=== PATIENT | female | born 1995 | race Caucasian/White ===

== ENCOUNTER 2016-11-22 04:53 | Inpatient (IN) | payer OTHER ==
[2016-11-22] MEDS ORDERED: ONDANSETRON HCL INJ/PF 4 MG/2 ML SDV IV ONE (05:15)
[2016-11-22] MEDS ORDERED: LIDOCAINE 1% INJ-PF (10 MG/ML) 30 ML SDV ONE ×2 (05:16→05:43)
[2016-11-22] MEDS ORDERED: MISOPROSTOL 0.2 MG TABLET ONE ×2 (05:16→05:42)
[2016-11-22] MEDS ORDERED: ONDANSETRON HCL INJ/PF 4 MG/2 ML SDV ONE (05:16)
[2016-11-22] MEDS ORDERED: RINGERS SOLUTION,LACTATED 1,000 ML IV ONE (05:16)
[2016-11-22] MEDS ORDERED: RINGERS SOLUTION,LACTATED 1,000 ML IV PRN (05:16)
[2016-11-22] MEDS ORDERED: OXYTOCIN/NORMAL SALINE 0 UNIT/0 ML RTUINJ ONE (05:16)
[2016-11-22 05:17] LABS: APPEARANCE,URINE SLIGHTLY-CLOUDY; BILIRUBIN,URINE NEGATIVE (NEGATIVE); GLUCOSE, URINE NEGATIVE (NEGATIVE); KETONES,URINE NEGATIVE (NEGATIVE); LEUKOCYTE ESTERASE,URINE TRACE (NEGATIVE); NITRITE,URINE NEGATIVE (NEGATIVE); PROTEIN,URINE NEGATIVE (NEGATIVE); URINE SPECIFIC GRAVITY 1.021; UROBILINOGEN,URINE NEGATIVE mg/dL (<2.0)
[2016-11-22] MEDS ORDERED: BENZOIN/ALOE VERA/STORAX/TOLU TINCTURE 60 ML TP PRN (05:18)
[2016-11-22] MEDS ORDERED: FENTANYL/BUPIVACAINE/NS/PF 100 ML EPI PRN (05:18)
[2016-11-22] MEDS ORDERED: BUPIVACAINE HCL 0.25 % INJ/PF (2.5 MG/1 ML) 30 ML VIAL INFIL ONE (05:18)
[2016-11-22] MEDS ORDERED: EPHEDRINE SULFATE INJ 50 MG/1 ML AMPULE IV PRN (05:18)
[2016-11-22 05:35] LABS: URINE BARBITURATES SCREEN NEGATIVE; URINE METHADONE SCREEN NEGATIVE; URINE PHENCYCLIDINE SCREEN NEGATIVE
[2016-11-22] MEDS ORDERED: FENTANYL CITRATE INJ/PF 100 MCG/2 ML AMPUL ONE (05:43)
[2016-11-22] MEDS ORDERED: PHENYLEPHRINE HCL INJ/PF 10 MG/1 ML SDV ONE (05:43)
[2016-11-22] MEDS ORDERED: FENTANYL/BUPIVACAINE/NS/PF 200 MCG/100 ML RTUINJ EPI ONE (05:43)
[2016-11-22] MEDS ORDERED: EPHEDRINE SULFATE INJ 50 MG/1 ML AMPULE ONE (05:43)
[2016-11-22] MEDS ORDERED: OXYTOCIN/NORMAL SALINE 20 UNIT/1,000 ML RTUINJ ONE (05:44)
[2016-11-22] MEDS ORDERED: BUPIVACAINE HCL 0.25 % INJ/PF (2.5 MG/1 ML) 30 ML VIAL ONE (05:44)
[2016-11-22 05:50] LABS: ABSOLUTE EOSINOPHILS # (AUTO) 0.1 10^3/uL (0.0-0.6); ABSOLUTE LYMPHOCYTES (AUTO) 2.2 10^3/uL (0.5-4.7); ABSOLUTE MONOCYTES (AUTO) 0.9 10^3/uL (0.1-1.4); BASOPHILS % (AUTO) 0.2 % (0-2); EOSINOPHILS % (AUTO) 0.9 % (0-6); HEMATOCRIT 36.6 % (36.0-47.0); HEMOGLOBIN 12.7 g/dL (12.0-15.5); HGB HCT DIFFERENCE 1.5; MEAN CORPUSCULAR HEMOGLOBIN 29.9 pg (27.0-33.4); MEAN CORPUSCULAR HGB CONC 34.7 g/dL (32.0-36.0); MEAN CORPUSCULAR VOLUME 86 fl (80-97); MONOCYTES % (AUTO) 8.5 % (3-13); RED BLOOD COUNT 4.25 10^6/uL (3.72-5.28); RED CELL DISTRIBUTION WIDTH 13.1 % (11.5-14.0); SEGMENTED NEUTROPHILS % (AUTO) 68.4 % (42-78); WHITE BLOOD COUNT 10.2 10^3/uL (4.0-10.5)
--- NOTE | 2016-11-22 06:15 | L&D General Admission ---
General Admit Datetime Report Generated by CPN: 11/22/2016 06:00 INFORMATION Patient Age: 21 (10/12/2016 14:07:QS system process) EDC: 11/27/2016 00:00 (10/22/2016 23:53:Sruthi Thurman RN) : 1 (10/22/2016 23:53:Sruthi Thurman RN) Para: 0 (11/21/2016 00:47:Carol Hernandez RN) Term: 0 (10/22/2016 23:53:Ariane Khan RN) : 0 (10/22/2016 23:53:Ariane Khan RN) Spontaneous Abortions: 0 (10/22/2016 23:53:Ariane Khan RN) Induced Abortions: 0 (10/22/2016 23:53:Ariane Khan RN) Livin (10/22/2016 23:53:Ariane Khan RN) Cesareans: 0 (10/22/2016 23:53:Ariane Khan RN) VBACs: 0 (10/22/2016 23:53:Ariane Khan RN) Ectopic: 0 (10/22/2016 23:53:Ariane Khan RN) Multiple Births: 0 (10/22/2016 23:53:Ariane Khan RN) Baby, Number in Womb: 1 (11/21/2016 00:47:Carol Hernandez RN) CARE Primary Issuing Operator: [facility] (10/22/2016 23:53:Sruthi Thurman RN) Adequate Care: Yes (10/22/2016 23:53:Elsie Santos RN) Height (in): 61 (11/21/2016 00:22:QS system process) ALLERGIES Medication Allergy: No (10/22/2016 23:53:Adriana Pinzon RN) Medication Allergies: No Known Allergies (11/21/2016) (11/21/2016 00:22:QS system process) Latex Allergy: No Latex Allergies (10/22/2016 23:53:Adriana Pinzon RN) Food Allergies: None (10/22/2016 23:53:Adriana Pinzon RN) Environmental Allergies: None (10/22/2016 23:53:Adriana Pinzon RN) COMMUNICATION Primary Language: Azeri (10/22/2016 23:53:Adriana Pinzon RN) Medical Tx Preferred Language: Azeri (10/22/2016 23:53:Adriana Pinzon RN) Communication Barrier(s): None (10/22/2016 23:53:Adriana Pinzon RN) DEMOGRAPHICS Address: [address] [place] [id number] (10/12/2016 14:07:QS system process) Zipcode: [address] (10/12/2016 14:07:QS system process) Home (10/12/2016 14:07:QS system process) SSN: [id number] (10/12/2016 14:07:QS system process) Next of Kin Name: RICO GRAF (10/12/2016 14:07:QS system process) Next of Kin (10/12/2016 14:07:QS system process) Next of Kin Relationship: SPO (10/12/2016 14:07:QS system process) Date of : 1995 (10/12/2016 14:07:QS system process) Marital Status: (10/12/2016 14:07:QS system process) Sex: Female (10/12/2016 14:07:QS system process) Race: (10/12/2016 14:07:QS system process) Ethnicity: Non- or (10/12/2016 14:07:QS system process) Pentecostalism: Denominational (10/12/2016 14:07:QS system process) DRUG AND ALCOHOL USE Alcohol: No (10/22/2016 23:53:Sruthi Thurman RN) Cigarettes: Never Smoker. [id number] (10/22/2016 23:53:Sruthi Thurman RN) Marijuana: No (10/22/2016 23:53:Sruthi Thurman RN) Cocaine: No (10/22/2016 23:53:Sruthi Thurman RN) Other Illicit Drugs: No (10/22/2016 23:53:Sruthi Thurman RN) Extracorporeal Circulation Specialist: Other (Annotations: Data stored by Randy on behalf of user) (10/22/2016 23:53:Elsie Santos RN) Feeding Preference: Breast (10/22/2016 23:53:Sruthi Thurman RN) Circumcision: N/A (10/22/2016 23:53:Sruthi Thurman RN) Classes Attended: No (10/22/2016 23:53:Sruthi Thurman RN) Tubal Ligation: No (10/22/2016 23:53:Sruthi Thurman RN) Tubal Authorization Signed: N/A (10/22/2016 23:53:Sruthi Thurman RN) Consent: N/A (10/22/2016 23:53:Sruthi Thurman RN) Consent Signed: N/A (10/22/2016 23:53:Sruthi Thurman RN) Pain Management Plans: Epidural (10/22/2016 23:53:Sruthi Thurman RN) Plans for Labor and Delivery: None (10/22/2016 23:53:Sruthi Thurman RN) Support Person: Rico (10/22/2016 23:53:Sruthi Thurman RN) Support Person Relationship: (10/22/2016 23:53:Sruthi Thurman RN) Cultural/Spritual Practice: No (10/22/2016 23:53:Sruthi Thurman RN) Spir/Cult Dietary Needs: No (10/22/2016 23:53:Sruthi Thurman RN) LIVING SITUATION/DISCHARGE PLAN Living Arrangements: Apartment (10/22/2016 23:53:Sruthi Thurman RN) Adequate Access to:: Electric; Heat; Refrigeration; Plumbing/Running water; Phone; Transportation (10/22/2016 23:53:Sruthi Thurman RN) WIC Program: No (10/22/2016 23:53:Sruthi Thurman RN) Discharge Flower [place] Person: Rico (10/22/2016 23:53:Sruthi Thurman RN) Person to Help after Discharge: Rico (10/22/2016 23:53:Rosita Galvez RN) Currently Using Commun Resources: No (10/22/2016 23:53:Sruthi Thurman RN) Outside Agency/Seismograph Supervisor: N/A (10/22/2016 23:53:Sruthi Thurman RN) Car Seat for Discharge: Yes (10/22/2016 23:53:Sruthi Thurman RN) Adoption Requested: No (10/22/2016 23:53:Sruthi Thurman RN) LABS Blood Type: A Negative (10/22/2016 23:53:Sruthi Thurman RN) Antibody Screen: Negative (10/22/2016 23:53:Sruthi Thurman RN) Rho(G) this : Yes (10/22/2016 23:53:Gely Vega RN) Date Rho(G) Given: 09/08/2016 (10/22/2016 23:53:Ariane Khan RN) Hemoglobin: 12.7 (11/22/2016 05:26:QS system process) Hematocrit: 36.6 (11/22/2016 05:26:QS system process) MCV: 86 (11/22/2016 05:26:QS system process) Group Beta Strep: negative (10/22/2016 23:53:Gely Vega RN) Gonorrhea: Negative (10/22/2016 23:53:Gely Vega RN) Chlamydia: Negative (10/22/2016 23:53:Gely Vega RN) RPR/VDRL: Nonreactive (10/22/2016 23:53:Gely Vega RN) HIV Results: Negative (10/22/2016 23:53:Ariane Khan RN) Hepatitis B: Negative (10/22/2016 23:53:Sruthi Thurman RN) Rubella: Immune (10/22/2016 23:53:Sruthi Thurman RN) OB/PREVIOUS HISTORY Current Procedures: Ultrasound; NST (10/22/2016 23:53:Adriana Pinzon RN) History of Previous : No (10/22/2016 23:53:Adriana Pinzon RN) History of Gestational Diabetes: No (10/22/2016 23:53:Adriana Pinzon RN) History of PIH: No (10/22/2016 23:53:Adriana Pinzon RN) History of Incompetent Cervix: No (10/22/2016 23:53:Adriana Pinzon RN) History of Placenta Previa/Abrup: No (10/22/2016 23:53:Adriana Pinzon RN) History of Macrosomia: No (10/22/2016 23:53:Adriana Pinzon RN) History of IUGR: No (10/22/2016 23:53:Adriana Pinzon RN) History of Hemorrhage: No (10/22/2016 23:53:Adriana Pinzon RN) History of Loss/Stillborn: No (10/22/2016 23:53:Adriana Pinzon RN) History of : No (10/22/2016 23:53:Adriana Pinzon RN) History of D (Rh) Sensitization: No (10/22/2016 23:53:Adriana Pinzon RN) History Recurrent Loss/Stillborn: No (10/22/2016 23:53:Adriana Pinzon RN) History Depression/PP Depression: No (10/22/2016 23:53:Sruthi Thurman RN) History of Uterine Anomaly/ELZA: No (10/22/2016 23:53:Adriana Pinzon RN) History of Infertility: No (10/22/2016 23:53:Adriana Pinzon RN) History of ART Treatment: No (10/22/2016 23:53:Sruthi Thurman RN) History of ELZA: No (10/22/2016 23:53:Adriana Pinzon RN) Comments Obstetrical History: G1: current (10/22/2016 23:53:Adriana Pinzon RN) MEDICAL HISTORY Med Hx Diabetes: No (10/22/2016 23:53:Sruthi Thurman RN) Med Hx Hypertension: No (10/22/2016 23:53:Sruthi Thurman RN) Med Hx Heart Disease: No (10/22/2016 23:53:Sruthi Thurman RN) Med Hx Autoimmune Disorder: No (10/22/2016 23:53:Sruthi Thurman RN) Med Hx Kidney Disease/UTI: No (10/22/2016 23:53:Sruthi Thurman RN) Med Hx Neurologic/Epilepsy: No (10/22/2016 23:53:Sruthi Thurman RN) Med Hx Psychiatric Disorders: No (10/22/2016 23:53:Sruthi Thurman RN) Med Hx Hepatitis/Liver Disease: No (10/22/2016 23:53:Sruthi Thurman RN) Med Hx Varicosities/Phlebitis: No (10/22/2016 23:53:Sruthi Thurman RN) Med Hx Thyroid Dysfunction: No (10/22/2016 23:53:Sruthi Thurman RN) Med Hx Trauma/Violence: No (10/22/2016 23:53:Sruthi Thurman RN) Med Hx Blood Transfusion: No (10/22/2016 23:53:Sruthi Thurman RN) Med Hx Pulmonary (Asthma,TB): No (10/22/2016 23:53:Sruthi Thurman RN) Med Hx Breast: No (10/22/2016 23:53:Sruthi Thurman RN) Med Hx ALMOND SORTER Surgery: No (10/22/2016 23:53:Sruthi Thurman RN) Med Hx Hospitalization/Surgery: No (10/22/2016 23:53:Sruthi Thurman RN) Med Hx Anesthetic Complications: Unknown (10/22/2016 23:53:Sruthi Thurman RN) Med Hx Abnormal Pap Smear: No (10/22/2016 23:53:Sruthi Thurman RN) Other Medical Diseases: No (10/22/2016 23:53:Sruthi Thurman RN) Med Hx Significant Family Hx: No (10/22/2016 23:53:Sruthi Thurman RN) INFECTIOUS HISTORY Inf Hx Gonorrhea: No (10/22/2016 23:53:Sruthi Thurman RN) Inf Hx Chlamydia: No (10/22/2016 23:53:Sruthi Thurman RN) Inf Hx Syphilis: No (10/22/2016 23:53:Sruthi Thurman RN) Inf Hx HIV/AIDS: No (10/22/2016 23:53:Sruthi Thurman RN) Inf Hx Human Papilloma Virus: No (10/22/2016 23:53:Sruthi Thurman RN) Inf Hx Pt/Partner Genital Herpes: No (10/22/2016 23:53:Sruthi Thurman RN) Inf Hx Tuberculosis/Exposure: No (10/22/2016 23:53:Sruthi Thurman RN) Inf Hx Hepatitis B,C: No (10/22/2016 23:53:Sruthi Thurman RN) Inf Hx Rash or Viral Illness: No (10/22/2016 23:53:Sruthi Thurman RN) GENETIC HISTORY Gen Hx Age >=35 at SHABANA: No (10/22/2016 23:53:Adriana Pinzon RN) Gen Hx Thalassemia: No (10/22/2016 23:53:Adriana Pinzon RN) Gen Hx Congenital Heart Defect: No (10/22/2016 23:53:Adriana Pinzon RN) Gen Hx Neural Tube Defect: No (10/22/2016 23:53:Adriana Pinzon RN) Gen Hx Down's Syndrome: No (10/22/2016 23:53:Adriana Pinzon RN) Gen Hx Chidi-Sachs: No (10/22/2016 23:53:Adriana Pinzon RN) Gen Hx Bernardino: No (10/22/2016 23:53:Adriana Pinzon RN) Gen Hx Familial Dysautonomia: No (10/22/2016 23:53:Adriana Pinzon RN) Gen Hx Sickle Cell Disease/Trait: No (10/22/2016 23:53:Adriana Pinzon RN) Gen Hx Hemophilia/Blood Disorder: No (10/22/2016 23:53:Adriana Pinzon RN) Gen Hx Muscular Dystrophy: No (10/22/2016 23:53:Adriana Pinzon RN) Gen Hx Cystic Fibrosis: No (10/22/2016 23:53:Adriana Pinzon RN) Gen Hx Huntingtons Chorea: No (10/22/2016 23:53:Adriana Pinzon RN) Gen Hx Mental Retardation/Autism: Yes (10/22/2016 23:53:Sruthi Thurman RN) Gen Hx Tested for Fragile X: No (10/22/2016 23:53:Adriana Pinzon RN) Gen Hx Other Inher/Chromosomal: No (10/22/2016 23:53:Adriana Pinzon RN) Gen Hx Maternal Metabolic DO: No (10/22/2016 23:53:Adriana Pinzon RN) Gen Hx Pt Father or FOB Defect: No (10/22/2016 23:53:Adriana Pinzon RN) Gen Hx Other Genetic History: No (10/22/2016 23:53:Adriana Pinzon RN) Gen Hx Drugs/Meds since LMP: Yes (10/22/2016 23:53:Carol Hernandez RN) Gen Hx Medications: PNV (10/22/2016 23:53:Carol Hernandez RN)
--- NOTE | 2016-11-22 06:15 | L&D Current Admission ---
Current Admit Datetime Report Generated by CPN: 11/22/2016 06:00 ADMISSION INFORMATION Current Admit Date/Time: 11/22/2016 05:11 (11/22/2016 05:07:Robyn Zavala) Reason for Admission: Onset of Labor (11/22/2016 05:07:Robyn Zavala) Chief Complaint: Contractions (11/22/2016 05:07:Robyn Zavala) EGA per Dates: 39.2 (11/22/2016 05:07:QS system process) Method of Arrival: Wheelchair (11/22/2016 05:07:Robyn Zavala) Admitted From: Home (11/22/2016 05:07:Robyn Zavala) Records Available: Yes (11/22/2016 05:07:Robyn Zavala) General Admission Information: Reviewed (11/22/2016 05:07:Robyn Zavala) General Admission Reviewed By: Alma Zavala Rn (11/22/2016 05:07:Robyn Zavala) BELONGINGS/ADVANCED DIRECTIVES Other Belongings: see consent sheet (11/22/2016 05:07:Robyn Zavala) Disposition of Belongings: Kept with Patient (11/22/2016 05:07:Robyn Zavala) Advance Direct for Healthcare: No, and Wants No Information (11/22/2016 05:07:Robyn Zavala) Durable Power of Watch Repairer: No (11/22/2016 05:07:Robyn Zavala) Living Will: No (11/22/2016 05:07:Robyn Zavala) Organ Donor: No (11/22/2016 05:07:Robyn Zavala) Pt Rights Information Given: Yes (11/22/2016 05:07:Robyn Zavala) Pt Understands Pt Rights: Yes (11/22/2016 05:07:Robyn Zavala) Patient Rights Comments: patient access (11/22/2016 05:07:Robyn Zavala) LEARNING ASSESSMENT Knowledge Level: Understands L_D Process (11/22/2016 05:07:Robyn Zavala) Barriers to Learning: None (11/22/2016 05:07:Robyn Zavala) Learning Readiness: Motivated (11/22/2016 05:07:Robyn Zavala) Learns Best By: 1 to 1 Instruction (11/22/2016 05:07:Robyn Zavala) Learning Needs: Labor and Delivery Process (11/22/2016 05:07:Robyn Zavala) DOMESTIC VIOLANCE SCREENING Dom Viol Threatened/Hurt: No (11/22/2016 05:07:Robyn Zavala) Hx of Abuse/Neglect past 2yrs: No (11/22/2016 05:07:Robyn Zavala) Feel Unsafe Going Home: No (11/22/2016 05:07:Robyn Zavala) Addt'l Observ Indicating Abuse: No (11/22/2016 05:07:Robyn Zavala) Reason Unable to Complete Screen: N/A, Screen Completed (11/22/2016 05:07:Robyn Zavala) Considered Personal Harm/Suicide: No (11/22/2016 05:07:Robyn Zavala) NUTRITIONAL/FUNCTIONAL SCREENING Problem with Appetite >5 Days: No (11/22/2016 05:07:Robyn Azvala) Chew/Swallow Difficulties: No (11/22/2016 05:07:Robyn Zavala) Inappropriate Wt Gain/Loss: No (11/22/2016 05:07:Robyn Zavala) Presence Skin Breakdown/Ulcer: No (11/22/2016 05:07:Robyn Zavala) Special Diet: No (11/22/2016 05:07:Robyn Zavala) Pt Requests Pulling Machine Operator Visit: No (11/22/2016 05:07:Robyn Zavala) Hx of Any of the Following?: N/A (11/22/2016 05:07:Robyn Zavala) New Diagnosis of: N/A (11/22/2016 05:07:Robyn Zavala) Requires Assist w/Ambulation: No (11/22/2016 05:07:Robyn Zavala) Uses Assist Device to Ambulate: No (11/22/2016 05:07:Robyn Zavala) Pt Requires Help w/ADL's: No (11/22/2016 05:07:Robyn Zavala)
--- NOTE | 2016-11-22 08:00 | L&D Flow Sheet ---
LD Flowsheet Datetime Report Generated by CPN: 11/22/2016 08:00 Datetime: 11/22/2016 07:50 NBP Sys/Ani/Mean (mmHg): 125 (QS system process) : 73 (QS system process) : 91 (QS system process) Pulse: 89 (QS system process) LaborFlag: Antepartum (QS system process) Datetime: 11/22/2016 07:45 Monitor Mode: External; Palpation (Korin Joyner RN) Frequency (min): 1.5-2 (Korin Joyner, RN) Quality: Moderate to Strong (Korin Joyner, RN) Duration (sec): 60-90 (Korin Joyner, RN) Duration Criteria: Less than Two 120 Second Contractions (Korin Joyner, RN) Pattern: Normal: <= 5 Contractions in 10 Minutes (Korin Baijesica, RN) Resting Tone (Palpate): Relaxed (Korin Joyner, RN) Monitor Mode: External US (Korin Joyner, RN) FHR Baseline Rate : 140 (Korin Joyner, RN) Variability: Moderate 6-25 bpm (Korin Baijesica, RN) Accelerations: None (Korin Baijesica, RN) Decelerations: Early (Korin Ar, RN) Datetime: 11/22/2016 07:34 NBP Sys/Ani/Mean (mmHg): 121 (QS system process) : 74 (QS system process) : 93 (QS system process) Pulse: 95 (QS system process) LaborFlag: Antepartum (QS system process) Datetime: 11/22/2016 07:30 Monitor Mode: External; Palpation (Korin Baidy, RN) Frequency (min): 1-2.5 (Korin Baidy, RN) Quality: Moderate to Strong (Korin Baidy, RN) Duration (sec): 60-100 (Korin Baidy, RN) Duration Criteria: Less than Two 120 Second Contractions (Korin Baidy, RN) Pattern: Normal: <= 5 Contractions in 10 Minutes (Korin Baidy, RN) Resting Tone (Palpate): Relaxed (Korin Baijesica, RN) Monitor Mode: External US (Korin Joyner, RN) FHR Baseline Rate : 135 (Korin Baidy, RN) Variability: Moderate 6-25 bpm (Korin Baidy, RN) Accelerations: None (Korin Baidy, RN) Decelerations: None (Korin Baidy, RN) Datetime: 11/22/2016 07:19 Level of Consciousness: Fully Conscious (Korin Baidy, RN) DTR's/Clonus: DTRs 2+; No Clonus (Korin Baidy, RN) Headache: Denies (Korin Baidy, RN) Breath Sounds, Left: Clear and Equal (Korin Baidy, RN) Breath Sounds, Right: Clear and Equal (Korin Baidy, RN) Nausea/Vomiting: Denies (Korin Baidy, RN) RUQ Epigastric Pain: Denies (Korin Baidy, RN) Datetime: 11/22/2016 07:18 NBP Sys/Ani/Mean (mmHg): 129 (QS system process) : 78 (QS system process) : 98 (QS system process) Pulse: 96 (QS system process) LaborFlag: Antepartum (QS system process) Datetime: 11/22/2016 07:17 NBP Sys/Ani/Mean (mmHg): 121 (QS system process) : 69 (QS system process) : 90 (QS system process) Pulse: 108 (QS system process) LaborFlag: Antepartum (QS system process) Datetime: 11/22/2016 07:16 NBP Sys/Ani/Mean (mmHg): 122 (QS system process) : 61 (QS system process) : 85 (QS system process) Pulse: 96 (QS system process) LaborFlag: Antepartum (QS system process) Datetime: 11/22/2016 07:15 NBP Sys/Ani/Mean (mmHg): 127 (QS system process) : 63 (QS system process) : 89 (QS system process) Pulse: 105 (QS system process) Monitor Mode: External; Palpation (Korin Joyner, RN) Frequency (min): 1-2 (Korin Joyner, RN) Quality: Moderate to Strong (Korin Joyner, RN) Duration (sec): 60-90 (Korin Joyner, RN) Duration Criteria: Less than Two 120 Second Contractions (Korin Joyner, RN) Pattern: Normal: <= 5 Contractions in 10 Minutes (Korin Baijesica, RN) Resting Tone (Palpate): Relaxed (Korin Joyner, RN) Monitor Mode: External US (Korin Joyner, RN) FHR Baseline Rate : 135 (Korin Joyner, RN) Variability: Moderate 6-25 bpm (Korin Baidy, RN) Accelerations: None (Korin Baidy, RN) Decelerations: None (Korin Joyner, RN) LaborFlag: Antepartum (QS system process) Datetime: 11/22/2016 07:14 NBP Sys/Ani/Mean (mmHg): 133 (QS system process) : 65 (QS system process) : 93 (QS system process) Pulse: 100 (QS system process) LaborFlag: Antepartum (QS system process) Datetime: 11/22/2016 07:13 NBP Sys/Ani/Mean (mmHg): 132 (QS system process) : 66 (QS system process) : 92 (QS system process) Pulse: 116 (QS system process) LaborFlag: Antepartum (QS system process) Datetime: 11/22/2016 07:12 NBP Sys/Ani/Mean (mmHg): 127 (QS system process) : 60 (QS system process) : 87 (QS system process) Pulse: 109 (QS system process) LaborFlag: Antepartum (QS system process) Datetime: 11/22/2016 07:11 NBP Sys/Ani/Mean (mmHg): 119 (QS system process) : 67 (QS system process) : 88 (QS system process) Pulse: 110 (QS system process) LaborFlag: Antepartum (QS system process) Datetime: 11/22/2016 07:10 NBP Sys/Ani/Mean (mmHg): 117 (QS system process) : 64 (QS system process) : 85 (QS system process) Pulse: 95 (QS system process) LaborFlag: Antepartum (QS system process) Datetime: 11/22/2016 07:09 NBP Sys/Ani/Mean (mmHg): 124 (QS system process) : 71 (QS system process) : 91 (QS system process) Pulse: 104 (QS system process) LaborFlag: Antepartum (QS system process) Datetime: 11/22/2016 07:08 NBP Sys/Ani/Mean (mmHg): 121 (QS system process) : 65 (QS system process) : 85 (QS system process) Pulse: 99 (QS system process) LaborFlag: Antepartum (QS system process) Datetime: 11/22/2016 07:07 NBP Sys/Ani/Mean (mmHg): 123 (QS system process) : 66 (QS system process) : 77 (QS system process) Pulse: 96 (QS system process) LaborFlag: Antepartum (QS system process) Datetime: 11/22/2016 07:06 NBP Sys/Ani/Mean (mmHg): 116 (QS system process) : 68 (QS system process) : 87 (QS system process) Pulse: 97 (QS system process) LaborFlag: Antepartum (QS system process) Datetime: 11/22/2016 07:05 NBP Sys/Ani/Mean (mmHg): 116 (QS system process) : 59 (QS system process) : 82 (QS system process) Pulse: 96 (QS system process) LaborFlag: Antepartum (QS system process) Datetime: 11/22/2016 07:04 NBP Sys/Ani/Mean (mmHg): 116 (QS system process) : 60 (QS system process) : 80 (QS system process) Pulse: 98 (QS system process) LaborFlag: Antepartum (QS system process) Datetime: 11/22/2016 07:02 NBP Sys/Ani/Mean (mmHg): 121 (QS system process) : 59 (QS system process) : 82 (QS system process) Pulse: 101 (QS system process) LaborFlag: Antepartum (QS system process) Datetime: 11/22/2016 06:59 NBP Sys/Ani/Mean (mmHg): 127 (QS system process) : 61 (QS system process) : 88 (QS system process) Pulse: 96 (QS system process) Respirations: 18 (Robyn Zavala) Monitor Mode: External; Palpation (Robyn Zavala) Monitor Interventions for UA: Riner Adjusted (Robyn Zavala) Frequency (min): 1-3 (Robyn Zavala) Quality: Moderate to Strong (Robyn Zavala) Duration (sec): 40-60 (Robyn Zavala) Resting Tone (Palpate): Relaxed (Robyn Zavala) Monitor Mode: External US (Robyn Zavala) Monitor Interventions for FHR: Ultrasound Adjusted (Robyn Zavala) FHR Baseline Rate : 140 (Robyn Zavala) Variability: Moderate 6-25 bpm (Robyn Zavala) Accelerations: 15X15 (Robyn Zavala) Decelerations: None (Robyn Zavala) Patient Position/Activity: High Fowlers (Robyn Zavala) LaborFlag: Antepartum (QS system process) Datetime: 11/22/2016 06:58 NBP Sys/Ani/Mean (mmHg): 127 (QS system process) : 68 (QS system process) : 89 (QS system process) Pulse: 100 (QS system process) LaborFlag: Antepartum (QS system process) Datetime: 11/22/2016 06:56 NBP Sys/Ani/Mean (mmHg): 118 (QS system process) : 61 (QS system process) : 82 (QS system process) Pulse: 88 (QS system process) LaborFlag: Antepartum (QS system process) Datetime: 11/22/2016 06:55 NBP Sys/Ani/Mean (mmHg): 119 (QS system process) : 57 (QS system process) : 82 (QS system process) Pulse: 91 (QS system process) LaborFlag: Antepartum (QS system process) Datetime: 11/22/2016 06:54 NBP Sys/Ani/Mean (mmHg): 109 (QS system process) : 68 (QS system process) : 84 (QS system process) Pulse: 93 (QS system process) LaborFlag: Antepartum (QS system process) Datetime: 11/22/2016 06:53 NBP Sys/Ani/Mean (mmHg): 118 (QS system process) : 69 (QS system process) : 89 (QS system process) Pulse: 91 (QS system process) LaborFlag: Antepartum (QS system process) Datetime: 11/22/2016 06:52 NBP Sys/Ani/Mean (mmHg): 126 (QS system process) : 63 (QS system process) : 89 (QS system process) Pulse: 83 (QS system process) LaborFlag: Antepartum (QS system process) Datetime: 11/22/2016 06:51 NBP Sys/Ani/Mean (mmHg): 127 (QS system process) : 59 (QS system process) : 85 (QS system process) Pulse: 96 (QS system process) LaborFlag: Antepartum (QS system process) Datetime: 11/22/2016 06:50 NBP Sys/Ani/Mean (mmHg): 134 (QS system process) : 70 (QS system process) : 96 (QS system process) Pulse: 88 (QS system process) Patient Position/Activity: High Fowlers (Robyn Zavala) LaborFlag: Antepartum (QS system process) Datetime: 11/22/2016 06:49 NBP Sys/Ani/Mean (mmHg): 123 (QS system process) : 68 (QS system process) : 86 (QS system process) Pulse: 90 (QS system process) LaborFlag: Antepartum (QS system process) Datetime: 11/22/2016 06:48 NBP Sys/Ani/Mean (mmHg): 122 (QS system process) : 69 (QS system process) : 89 (QS system process) Pulse: 78 (QS system process) Dilatation (cm): 9.0 (Robyn Zavala) Effacement (%): 100 (Robyn Zavala) Station: 0 (Robyn Zavala) Exam by: Dr Eagle (Robyn Zavala) Membrane Status: Ruptured (Robyn Zavala) Membranes Ruptured Date/Time: 11/22/2016 06:48 (Robyn Zavala) Membranes Rupture Method: Artificial (Robyn Zavala) Amniotic Fluid Color: Clear (Robyntatiana Zavala) Amniotic Fluid Amount: Moderate (Robyntatiana Zavala) Amniotic Fluid Odor: Normal (Robyn Zavala) Vaginal Bleeding: Normal Show (Robyn Zavala) LaborFlag: Antepartum (QS system process) Datetime: 11/22/2016 06:47 NBP Sys/Ani/Mean (mmHg): 127 (QS system process) : 73 (QS system process) : 94 (QS system process) Pulse: 75 (QS system process) LaborFlag: Antepartum (QS system process) Datetime: 11/22/2016 06:46 NBP Sys/Ani/Mean (mmHg): 131 (QS system process) : 74 (QS system process) : 96 (QS system process) Pulse: 87 (QS system process) I/O Interventions: [place]more Cath Inserted (Robyn Zavala) Patient Care Comments: elmore cath inserted with aseptic technique by Alma Zavala RN (Robyn Zavala) LaborFlag: Antepartum (QS system process) Datetime: 11/22/2016 06:45 NBP Sys/Ani/Mean (mmHg): 130 (QS system process) : 74 (QS system process) : 98 (QS system process) Pulse: 88 (QS system process) LaborFlag: Antepartum (QS system process) Datetime: 11/22/2016 06:44 NBP Sys/Ani/Mean (mmHg): 131 (QS system process) : 68 (QS system process) : 92 (QS system process) Pulse: 86 (QS system process) Epidural Procedure Other: Pump Started (Robyn Zavala) LaborFlag: Antepartum (QS system process) Datetime: 11/22/2016 06:42 NBP Sys/Ani/Mean (mmHg): 131 (QS system process) : 86 (QS system process) : 104 (QS system process) Pulse: 83 (QS system process) LaborFlag: Antepartum (QS system process) Datetime: 11/22/2016 06:41 NBP Sys/Ani/Mean (mmHg): 134 (QS system process) : 92 (QS system process) : 108 (QS system process) Pulse: 90 (QS system process) LaborFlag: Antepartum (QS system process) Datetime: 11/22/2016 06:40 NBP Sys/Ani/Mean (mmHg): 137 (QS system process) : 92 (QS system process) : 110 (QS system process) Pulse: 85 (QS system process) Epidural Procedure: Cath Placed; Test Dose (Robyn Zavala) LaborFlag: Antepartum (QS system process) Datetime: 11/22/2016 06:36 NBP Sys/Ani/Mean (mmHg): 136 (QS system process) : 99 (QS system process) : 109 (QS system process) Pulse: 87 (QS system process) Procedures: Consents Signed (Robyn Zavala) LaborFlag: Antepartum (QS system process) Datetime: 11/22/2016 06:35 Anesthesia Comments: Dr Knightshed at bedside for epidural placement (Robyn Zavala) Datetime: 11/22/2016 06:32 NBP Sys/Ani/Mean (mmHg): 139 (QS system process) : 88 (QS system process) : 109 (QS system process) Pulse: 84 (QS system process) LaborFlag: Antepartum (QS system process) Datetime: 11/22/2016 06:30 Patient Care Comments: patient sitting for epidural (Robyn Zavala) Datetime: 11/22/2016 06:29 Anesthesia Plans: Epidural (Robyn Zavala) Epidural Positioning: Sitting (Robyn Zavala) Datetime: 11/22/2016 06:15 Anesthesia Comments: Dr Knightshead notified for epidural (Robyn Zavala) Datetime: 11/22/2016 06:00 Respirations: 18 (Robyn Zavala) Monitor Mode: External; Palpation (Robyn Zavala) Monitor Interventions for UA: Riner Adjusted (Robyn Zavala) Frequency (min): 1-3 (Robyn Zavala) Quality: Moderate (Robyn Zavala) Duration (sec): 40-70 (Robyn Zavala) Resting Tone (Palpate): Relaxed (Robyn Zavala) Monitor Mode: External US (Robyn Zavala) Monitor Interventions for FHR: Ultrasound Adjusted (Robyn Zavala) FHR Baseline Rate : 140 (Robyn Zavala) Variability: Moderate 6-25 bpm (Robyn Zavala) Accelerations: 15X15 (Robyn Zavala) Decelerations: None (Robyn Zavala) Patient Position/Activity: Left Lateral (Robyn Zavala) LaborFlag: Antepartum (QS system process) Datetime: 11/22/2016 05:30 Respirations: 18 (Robyn Zavala) Monitor Mode: External; Palpation (Robyn Zavala) Monitor Interventions for UA: Riner Adjusted (Robyn Zavala) Frequency (min): 1-3 (Robyn Zavala) Quality: Moderate (Robyn Zavala) Duration (sec): 40-60 (Robyn Zavala) Resting Tone (Palpate): Relaxed (Robyn Zavala) Monitor Mode: External US (Robyn Zavala) Monitor Interventions for FHR: Ultrasound Adjusted (Robyn Zavala) FHR Baseline Rate : 140 (Robyn Zavala) Variability: Moderate 6-25 bpm (Robyn Zavala) Accelerations: 15X15 (Robyn Zavala) Decelerations: None (Robyn Zavala) Patient Position/Activity: Left Lateral (Robyn Zavala) LaborFlag: Antepartum (QS system process) Datetime: 11/22/2016 05:25 Procedures: Consents Signed (Rosita Lenny, RN) Datetime: 11/22/2016 05:19 Medication Comments: zofran 8 mg IVP (Rosita Lenny, RN) Datetime: 11/22/2016 05:18 IV/Blood Work: IV Started; IV Bolus Started (Rosita Lenny, RN) Datetime: 11/22/2016 05:13 Contraction Comments: pt vomiting (Rosita Lenny, RN) Nausea/Vomiting: Present (Rosita Lenny, RN) Datetime: 11/22/2016 05:10 Provider Notified (Name): Dr Eagle notified of the patient. 39.2 presents with contractions. Contractions every 2-3 minutes on the monitor. Orders recieved to admit the patient. Ok for epidural. (Robyn Zavala) Datetime: 11/22/2016 05:07 NBP Sys/Ani/Mean (mmHg): 136 (QS system process) : 78 (QS system process) : 102 (QS system process) Pulse: 74 (QS system process) Frequency (min): 2-3 (Robyn Zavala) Pain Scale: 5 (Robyn Zavala) Pain Presence: Intermittent (Robyn Zavala) Pain Type: Cramping (Robyn Zavala) Pain Location: Abdomen; Back (Robyn Zavala) Pain Goal: 0 (Robyn Zavala) Pain Relief Measures: Comfort Measures (Robyn Zavala) Pain Coping: Breathing Through Contractions (Robyn Zavala) Vaginal Bleeding: None (Robyn Zavala) Level of Consciousness: Fully Conscious (Robyn Zavala) DTR's/Clonus: DTRs 2+; No Clonus (Robyn Zavala) Headache: Denies (Robyn Zavala) Breath Sounds, Left: Clear and Equal (Robyn Zavala) Breath Sounds, Right: Clear and Equal (Robyn Zavala) Nausea/Vomiting: Denies (Robyn Zavala) RUQ Epigastric Pain: Denies (Robyn Zavala) Patient Position/Activity: Left Lateral (Robyn Zavala) Instructional Method: Verbal (Robyn Zavala) Plan of Care: Plan of Care Discussed (Robyn Zavala) Unit Routine: [place] to Room; Call Hilario; Bed; Visiting Policy; Waiting Areas; Security; Phone/Cell Phone Use; Photography; Unit Personnel; Consents Signed; Handwashing; Flu/Illness Precautions; Monitoring; IV Pumps; Safety/Fall Risk Prevention; Diet/Nutrition Services; Bathroom Privileges; Routine Time Outs (Robyn Zavala) LaborFlag: Antepartum (QS system process) Datetime: 11/22/2016 05:05 Dilatation (cm): 5.0 (Robyn Zavala) Effacement (%): 90 (Robyn Zavala) Station: 0 (Robyn Zavala) Exam by: Alma Zavala Rn (Robyn Zavala) Datetime: 11/22/2016 04:59 Patient Care Comments: patient to the unit for labor check (Robyn Zavala)
[2016-11-22] MEDS ORDERED: DIPH/PERTUSS(ACELL)/TETANUS VAC/PF 0.5 ML SYR (>=10YO) IM PRN (10:48)
[2016-11-22] MEDS ORDERED: OXYTOCIN/NORMAL SALINE 1,000 ML IV PRN (10:48)
[2016-11-22] MEDS ORDERED: BENZOCAINE/MENTHOL AEROSOL SPRAY 56 ML TOP PRN (10:48)
[2016-11-22] MEDS ORDERED: DIBUCAINE 1% OINTMENT 28 GM TP PRN (10:48)
[2016-11-22] MEDS ORDERED: ZOLPIDEM TARTRATE 5 MG TABLET PO PRN (10:48)
[2016-11-22] MEDS ORDERED: MEASLES,MUMPS&RUBELLA VACC/PF 0.5 ML VIAL SUBCUT PRN (10:48)
[2016-11-22] MEDS ORDERED: ACETAMINOPHEN WITH CODEINE #3 TABLET PO PRN ×2 (10:48)
--- NOTE | 2016-11-22 12:00 | L&D Flow Sheet ---
LD Flowsheet Datetime Report Generated by CPN: 11/22/2016 12:00 Datetime: 11/22/2016 11:49 NBP Sys/Ani/Mean (mmHg): 119 (QS system process) : 69 (QS system process) : 87 (QS system process) Pulse: 95 (QS system process) Datetime: 11/22/2016 11:34 NBP Sys/Ani/Mean (mmHg): 124 (QS system process) : 74 (QS system process) : 92 (QS system process) Pulse: 95 (QS system process) Datetime: 11/22/2016 11:19 NBP Sys/Ani/Mean (mmHg): 119 (QS system process) : 67 (QS system process) : 87 (QS system process) Pulse: 100 (QS system process) Datetime: 11/22/2016 11:04 NBP Sys/Ani/Mean (mmHg): 126 (QS system process) : 70 (QS system process) : 92 (QS system process) Pulse: 103 (QS system process) Datetime: 11/22/2016 10:49 NBP Sys/Ani/Mean (mmHg): 121 (QS system process) : 72 (QS system process) : 91 (QS system process) Pulse: 107 (QS system process) Datetime: 11/22/2016 10:39 NBP Sys/Ani/Mean (mmHg): 137 (QS system process) : 88 (QS system process) : 106 (QS system process) Pulse: 95 (QS system process) Datetime: 11/22/2016 10:38 Stage of : Recovery (Korin Joyner RN) Respirations: 16 (Korin Joyner RN) Pain Scale: 0 (Korin Joyner RN) Pain Presence: None/Denies (Korin Joyner RN) Pain Type: N/A (Korin Joyner RN) Datetime: 11/22/2016 10:36 Stage of : Recovery (Karly Liu, RN) Datetime: 11/22/2016 10:35 NBP Sys/Ani/Mean (mmHg): 149 (QS system process) : 78 (QS system process) : 103 (QS system process) Pulse: 136 (QS system process) LaborFlag: Antepartum (QS system process) Datetime: 11/22/2016 10:33 Pushing Progress: with Pushing (Korin Baidy, RN) Datetime: 11/22/2016 10:27 I/O Interventions: [place] Discontinued (Korin Baidy, RN) Patient Care Comments: 450mL (Korin Baidy, RN) Datetime: 11/22/2016 10:26 Actions for Decelerations: Oxygen Applied (Korin Baidy, RN) Comments: 10L (Korin Baidy, RN) Oxygen Method: Non-Rebreather (Korin Baidy, RN) Datetime: 11/22/2016 10:23 Monitor Interventions for FHR: FSE Applied (Korin Baidy, RN) Datetime: 11/22/2016 10:16 Comments: RN and provider remain at bedside continuously monitoring fht while pt effectively pushing with ctx. (Korin Joyner RN) Datetime: 11/22/2016 10:15 Pushing: Coached on Pushing (Korin Joyner RN) Communication: Provider at Bedside (Korin Joyner RN) Provider Notified (Name): Dr Sanchez (Korin Joyner RN) Communication Comments: for delivery (Korin Joyner RN) Datetime: 11/22/2016 10:11 Dilatation (cm): 10.0 (Korin Joyner RN) Effacement (%): 100 (Korin Joyner RN) Station: 2 (Korin Joyner RN) Exam by: Juan Diego Joyner RN (Korin Joyner RN) Datetime: 11/22/2016 10:04 NBP Sys/Ani/Mean (mmHg): 130 (QS system process) : 76 (QS system process) : 96 (QS system process) Pulse: 84 (QS system process) LaborFlag: Antepartum (QS system process) Datetime: 11/22/2016 10:00 Monitor Mode: External; Palpation (Korin Joyner RN) Frequency (min): 1-2.5 (Korin Joyner RN) Quality: Moderate to Strong (Korin Joyner RN) Duration (sec): 60-90 (Korin Joyner RN) Duration Criteria: Less than Two 120 Second Contractions (Korin Joyner RN) Pattern: Normal: <= 5 Contractions in 10 Minutes (Korin Joyner RN) Resting Tone (Palpate): Relaxed (Korin Joyner RN) Monitor Mode: External US (Korin Joyner RN) FHR Baseline Rate : 140 (Okrin Baidy, RN) Variability: Minimal - Undetectable to <=5 bpm (Korin Joyner RN) Accelerations: None (Korin Joyner, RN) Decelerations: Early (Korin Joyner, RN) Datetime: 11/22/2016 09:49 NBP Sys/Ani/Mean (mmHg): 127 (QS system process) : 77 (QS system process) : 97 (QS system process) Pulse: 83 (QS system process) LaborFlag: Antepartum (QS system process) Datetime: 11/22/2016 09:45 Monitor Mode: External; Palpation (Korin Joyner RN) Frequency (min): 1.5-2 (Korin Joyner RN) Quality: Moderate to Strong (Korin Joyner RN) Duration (sec): 50-90 (Korin Joyner RN) Duration Criteria: Less than Two 120 Second Contractions (Korin Joyner RN) Pattern: Normal: <= 5 Contractions in 10 Minutes (Korin Joyner RN) Resting Tone (Palpate): Relaxed (Korin Joyner RN) Monitor Mode: External US (Korin Baidy, RN) FHR Baseline Rate : 135 (Korin Joyner, RN) Variability: Minimal - Undetectable to <=5 bpm (Korin Joyner, RN) Accelerations: None (Korin Joyner, RN) Decelerations: Early (Korin Joyner, RN) Datetime: 11/22/2016 09:34 NBP Sys/Ani/Mean (mmHg): 119 (QS system process) : 72 (QS system process) : 90 (QS system process) Pulse: 80 (QS system process) LaborFlag: Antepartum (QS system process) Datetime: 11/22/2016 09:30 Monitor Mode: External; Palpation (Korin Joyner RN) Frequency (min): 1.5-2 (Korin Joyner RN) Quality: Moderate to Strong (Korin Joyner RN) Duration (sec): 60-90 (Korin Joyner RN) Duration Criteria: Less than Two 120 Second Contractions (Korin Joyner RN) Pattern: Normal: <= 5 Contractions in 10 Minutes (Korin Joyner RN) Resting Tone (Palpate): Relaxed (Korin Joyner RN) Monitor Mode: External US (Korin Joyner RN) FHR Baseline Rate : 140 (Korin Joyner RN) Variability: Minimal - Undetectable to <=5 bpm (Korin Joyner RN) Accelerations: 15X15 (Korin Joyner RN) Decelerations: Early (Korin Joyner RN) Datetime: 11/22/2016 09:20 NBP Sys/Ani/Mean (mmHg): 141 (QS system process) : 82 (QS system process) : 104 (QS system process) Pulse: 93 (QS system process) Communication Comments: Dr Sanchez notified of SVE of 9.5/100/+2, with intermittent pressure. (Korin Joyner RN) LaborFlag: Antepartum (QS system process) Datetime: 11/22/2016 09:18 Dilatation (cm): 9.5 (Korin Joyner RN) Effacement (%): 100 (Korin Joyner RN) Station: 2 (Korin Joyner RN) Exam by: Juan Diego Joyner RN (Korin Joyner RN) Datetime: 11/22/2016 09:10 Pain Presence: Intermittent (Korin Joyner RN) Pain Type: Pressure (Korin Joyner RN) Pain Location: Perineum (Korin Joyner RN) Pain Assessment Comments: pt states that she can feel presssure with ctx (Korin Joyner RN) LaborFlag: Antepartum (QS system process) Datetime: 11/22/2016 09:04 NBP Sys/Ani/Mean (mmHg): 129 (QS system process) : 66 (QS system process) : 90 (QS system process) Pulse: 82 (QS system process) LaborFlag: Antepartum (QS system process) Datetime: 11/22/2016 09:00 Monitor Mode: External; Palpation (Korin Baidy, RN) Frequency (min): 1.5-2 (Korin Baidy, RN) Quality: Moderate to Strong (Korin Baidy, RN) Duration (sec): 70-120 (Korin Baidy, RN) Duration Criteria: More than Two 120 Second or Greater Contractions (Korin Baidy, RN) Pattern: Normal: <= 5 Contractions in 10 Minutes (Korin Baidy, RN) Resting Tone (Palpate): Relaxed (Korin Baidy, RN) Monitor Mode: External US (Korin Baidy, RN) FHR Baseline Rate : 150 (Korin Baidy, RN) Variability: Minimal - Undetectable to <=5 bpm (Okrin Baidy, RN) Accelerations: None (Korin Baidy, RN) Decelerations: Early (Korin Baidy, RN) Datetime: 11/22/2016 08:51 NBP Sys/Ani/Mean (mmHg): 127 (QS system process) : 72 (QS system process) : 92 (QS system process) Pulse: 81 (QS system process) LaborFlag: Antepartum (QS system process) Datetime: 11/22/2016 08:45 Monitor Mode: External; Palpation (Korin Baidy, RN) Frequency (min): 1-2 (Korin Baidy, RN) Quality: Moderate to Strong (Korin Baidy, RN) Duration (sec): 60-90 (Korin Baidy, RN) Duration Criteria: Less than Two 120 Second Contractions (Korin Baidy, RN) Pattern: Normal: <= 5 Contractions in 10 Minutes (Korin Baidy, RN) Resting Tone (Palpate): Relaxed (Korin Baidy, RN) Monitor Mode: External US (Korin Baidy, RN) FHR Baseline Rate : 150 (Korin Baidy, RN) Variability: Minimal - Undetectable to <=5 bpm (Korin Baidy, RN) Accelerations: None (Korin Baidy, RN) Decelerations: Early (Korin Baidy, RN) Datetime: 11/22/2016 08:34 NBP Sys/Ani/Mean (mmHg): 129 (QS system process) : 63 (QS system process) : 90 (QS system process) Pulse: 82 (QS system process) Respirations: 16 (Korin Baidy, RN) Temperature (F): 98.4 (Korin Baidy, RN) Temperature (C): 36.9 (QS system process) LaborFlag: Antepartum (QS system process) Datetime: 11/22/2016 08:32 Monitor Interventions for UA: [place] Adjusted (Korin Baidy, RN) Monitor Interventions for FHR: Ultrasound Adjusted (Korin Baidy, RN) Datetime: 11/22/2016 08:31 Patient Position/Activity: Left Extreme; Peanut Ball (Korin Baidy, RN) Datetime: 11/22/2016 08:30 Monitor Mode: External; Palpation (Korin Baidy, RN) Frequency (min): 1-2 (Korin Baidy, RN) Quality: Moderate to Strong (Korin Baidy, RN) Duration (sec): 60-80 (Korin Ar, RN) Duration Criteria: Less than Two 120 Second Contractions (Korin Joyner RN) Pattern: Normal: <= 5 Contractions in 10 Minutes (Korin Joyner RN) Resting Tone (Palpate): Relaxed (Korin Joyner RN) Contraction Comments: couplets noted (Korin Joyner RN) Monitor Mode: External US (Korin Joyner RN) FHR Baseline Changes: Unable to Determine (Korin Joyner RN) Variability: Moderate 6-25 bpm (Korin Joyner RN) Accelerations: None (Korin Joyner RN) Decelerations: Early; Late (Korin Joyner, RN) Datetime: 11/22/2016 08:20 NBP Sys/Ani/Mean (mmHg): 122 (QS system process) : 64 (QS system process) : 86 (QS system process) Pulse: 86 (QS system process) LaborFlag: Antepartum (QS system process) Datetime: 11/22/2016 08:15 Monitor Mode: External; Palpation (Korin Joyner RN) Frequency (min): 2 (Korin Joyner RN) Quality: Moderate to Strong (Korin Joyner RN) Duration (sec): 60-90 (Korin Joyner RN) Duration Criteria: Less than Two 120 Second Contractions (Korin Joyner RN) Pattern: Normal: <= 5 Contractions in 10 Minutes (Korin Joyner RN) Resting Tone (Palpate): Relaxed (Korin Joyner RN) Monitor Mode: External US (Korin Joyner RN) FHR Baseline Rate : 140 (Korin Joyner RN) Variability: Moderate 6-25 bpm (Korin Joyner RN) Accelerations: None (Korin Joyner RN) Decelerations: Early (Korin Joyner RN) Datetime: 11/22/2016 08:11 Monitor Interventions for FHR: Ultrasound Adjusted (Korin Joyner RN) Patient Position/Activity: Peanut Ball; Right Extreme (Korin Joyner RN) Datetime: 11/22/2016 08:07 Dilatation (cm): 8.0 (Korin Joyner RN) Effacement (%): 100 (Korin Joyner RN) Station: 1 (Korin Joyner RN) Exam by: Dr Sanchez (Korin Joyner, FAVIO) Communication: Provider at Bedside (Korin Joyner RN) Provider Notified (Name): Dr Sanchez (Korin Joyner RN) Datetime: 11/22/2016 08:05 NBP Sys/Ani/Mean (mmHg): 119 (QS system process) : 70 (QS system process) : 90 (QS system process) Pulse: 87 (QS system process) LaborFlag: Antepartum (QS system process) Datetime: 11/22/2016 08:00 Monitor Mode: External; Palpation (Korin Joyner RN) Frequency (min): 1-2 (Korin Joyner RN) Quality: Moderate to Strong (Korin Joyner RN) Duration (sec): 60-100 (Korin Joyner RN) Duration Criteria: Less than Two 120 Second Contractions (Korin Joyner RN) Pattern: Normal: <= 5 Contractions in 10 Minutes (Korin Joyner RN) Resting Tone (Palpate): Relaxed (Korin Joyner RN) Monitor Mode: External US (Korin Joyner RN) FHR Baseline Rate : 140 (Korin Joyner RN) Variability: Minimal - Undetectable to <=5 bpm (Korin Joyner RN) Accelerations: None (Korin Joyner RN) Decelerations: Early (Korin Joyner RN)
--- NOTE | 2016-11-22 13:33 | Admission Physical ---
Datetime Report Generated by CPN: 11/22/2016 13:33 CURRENT ADMISSION Chief Complaint: Uterine Contractions Indication for Induction: Not Applicable Admit Plan: Admit to Unit; Initiate Labor Protocol ALLERGIES Medication Allergies: No Medication Allergies: No Known Allergies (11/21/2016) Latex: No Latex Allergies Food Allergies: None Environmental Allergies: None OBSTETRICAL HISTORY EDC: 11/27/2016 00:00 : 1 Para: 0 Term: 0 : 0 SAB: 0 IAB: 0 Ectopic: 0 Livin Cesareans: 0 VBACs: 0 Multiple Births: 0 Gestational Diabetes: No Rh Sensitization: No Incompetent Cervix: No ELZA: No Infertility: No ART Treatment: No Uterine Anomaly: No IUGR: No Hx Previous C/S: No Macrosomia: No Hx Loss/Stillborn: No PIH: No Hx : No Placenta Previa/Abruption: No Depression/PP Depression: No PTL/PROM: No Post Hemorrhage: No Current Procedures: Ultrasound; NST Obstetrical History Comments: G1: current SEE RECORDS Alcohol: No Marijuana : No Cocaine: No Other Illicit Drugs: No Cigarettes: Never Smoker. 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 Heart Disease: No Hosp/Surgery: No Autoimmune Disorder: No Anesthetic Complications: Unknown Kidney Disease: No Abnormal Pap Smear: No Neuro/Epilepsy: No Psychiatric Disorders: No Other Medical Diseases: No Hepatitis/Liver Disease: No Significant Family History: No Varicosities/Phlebitis: No Trauma/Violence : No Thyroid Dysfunction: No INFECTIOUS HISTORY Gonorrhea: No Genital Herpes: No Chlamydia: No Tuberculosis: No Syphilis: No Hepatitis: No HIV/AIDS Exposure: No Rash or Viral Illness: No HPV: No PHYSICAL EXAM General: Normal HEENT: Normal Neurologic: Normal Thyroid: Normal Heart: Normal Lungs: Normal Breast: Normal Back: Normal Abdomen: Normal Genitourinary Exam: Normal Extremities: Normal DTRs: Normal Pelvic Type: Adequate Vital Signs: Reviewed VAGINAL EXAM Dilatation: 9 Effacement: 100 Station: 0 MEMBRANES Membranes: Ruptured FETUS A EGA: 39.2 Monitoring: External US FHR- Baseline: 140 Variability: Moderate 6-25bpm Accelerations: 15X15 Decelerations: None FHR Category: Category I Estimated Weight (gm): 3600 Presentation: Vertex PLANS FOR LABOR AND DELIVERY Labor and Delivery: None Pain Management: Epidural Feeding Preference: Breast Benefit of Breast Feed Discussed: Yes Circumcision: N/A INFORMED CONSENT Signature: with User ID: [email or web address]
[2016-11-22] MEDS ORDERED: IBUPROFEN 800 MG TABLET ONE (14:10)
[2016-11-22] MEDS: IBUPROFEN 800 MG TABLET PO SCH ×2 (16:42→21:37)
[2016-11-22] MEDS: DOCUSATE SODIUM 100 MG CAPSULE PO SCH (18:58)
[2016-11-22] MEDS: FERROUS SULFATE 325 MG TABLET PO SCH (18:58)
--- NOTE | 2016-11-22 19:00 | L&D Flow Sheet ---
LD Flowsheet Datetime Report Generated by CPN: 11/22/2016 19:00 Datetime: 11/22/2016 12:50 NBP Sys/Ani/Mean (mmHg): 130 (QS system process) : 73 (QS system process) : 95 (QS system process) Pulse: 82 (QS system process) Respirations: 17 (Korin Joyner RN) Temperature (F): 99.6 (Korin Joyner RN) Temperature (C): 37.6 (QS system process) Temperature Route: Axillary (Korin Joyner RN) Datetime: 11/22/2016 12:04 NBP Sys/Ani/Mean (mmHg): 123 (QS system process) : 66 (QS system process) : 89 (QS system process) Pulse: 90 (QS system process) Temperature (F): 100.6 (Korin Joyner RN) Temperature (C): 38.1 (QS system process) Temperature Route: Oral (Korin Joyner, RN) Datetime: 11/22/2016 11:49 NBP Sys/Ani/Mean (mmHg): 119 (QS system process) : 69 (QS system process) : 87 (QS system process) Pulse: 95 (QS system process) Datetime: 11/22/2016 11:34 NBP Sys/Ani/Mean (mmHg): 124 (QS system process) : 74 (QS system process) : 92 (QS system process) Pulse: 95 (QS system process) Datetime: 11/22/2016 11:19 NBP Sys/Ani/Mean (mmHg): 119 (QS system process) : 67 (QS system process) : 87 (QS system process) Pulse: 100 (QS system process) Datetime: 11/22/2016 11:04 NBP Sys/Ani/Mean (mmHg): 126 (QS system process) : 70 (QS system process) : 92 (QS system process) Pulse: 103 (QS system process) Datetime: 11/22/2016 10:49 NBP Sys/Ani/Mean (mmHg): 121 (QS system process) : 72 (QS system process) : 91 (QS system process) Pulse: 107 (QS system process) Datetime: 11/22/2016 10:39 NBP Sys/Ani/Mean (mmHg): 137 (QS system process) : 88 (QS system process) : 106 (QS system process) Pulse: 95 (QS system process) Datetime: 11/22/2016 10:38 Stage of : Recovery (Korin Joyner, FAVIO) Respirations: 16 (Korin Joyner, FAVIO) Pain Scale: 0 (Korin Joyner RN) Pain Presence: None/Denies (Korin Joyner, RN) Pain Type: N/A (Korin Joyner, RN) Datetime: 11/22/2016 10:36 Stage of : Recovery (Karly Liu, RN) Datetime: 11/22/2016 10:35 NBP Sys/Ani/Mean (mmHg): 149 (QS system process) : 78 (QS system process) : 103 (QS system process) Pulse: 136 (QS system process) LaborFlag: Antepartum (QS system process) Datetime: 11/22/2016 10:33 Pushing Progress: with Pushing (Korin Baidy, RN) Datetime: 11/22/2016 10:27 I/O Interventions: [place] Discontinued (Korin Baidy, RN) Patient Care Comments: 450mL (Korin Baidy, RN) Datetime: 11/22/2016 10:26 Actions for Decelerations: Oxygen Applied (Korin Baidy, RN) Comments: 10L (Korin Baidy, RN) Oxygen Method: Non-Rebreather (Korin Baidy, RN) Datetime: 11/22/2016 10:23 Monitor Interventions for FHR: FSE Applied (Korin Baidy, RN) Datetime: 11/22/2016 10:16 Comments: RN and provider remain at bedside continuously monitoring fht while pt effectively pushing with ctx. (Korin Joyner, RN) Datetime: 11/22/2016 10:15 Pushing: Coached on Pushing (Korin Joyner RN) Communication: Provider at Bedside (Korin Joyner RN) Provider Notified (Name): Dr Sanchez (Korin Joyner, FAVIO) Communication Comments: for delivery (Korin Joyner, FAVIO) Datetime: 11/22/2016 10:11 Dilatation (cm): 10.0 (Korin Joyner, FAVIO) Effacement (%): 100 (Korin Joyner, RN) Station: 2 (Korin Joyner, RN) Exam by: Juan Diego Joyner RN (Korin Jonyer, RN) Datetime: 11/22/2016 10:04 NBP Sys/Ani/Mean (mmHg): 130 (QS system process) : 76 (QS system process) : 96 (QS system process) Pulse: 84 (QS system process) LaborFlag: Antepartum (QS system process) Datetime: 11/22/2016 10:00 Monitor Mode: External; Palpation (Korin Joyner RN) Frequency (min): 1-2.5 (Korin Joyner RN) Quality: Moderate to Strong (Korin Joyner RN) Duration (sec): 60-90 (Korin Joyner RN) Duration Criteria: Less than Two 120 Second Contractions (Korin Joyner, RN) Pattern: Normal: <= 5 Contractions in 10 Minutes (Korin Joyner, RN) Resting Tone (Palpate): Relaxed (Korin Joyner RN) Monitor Mode: External US (Korin Joyner RN) FHR Baseline Rate : 140 (Korin Joyner, RN) Variability: Minimal - Undetectable to <=5 bpm (Korin Joyner, RN) Accelerations: None (Korin Joyner, RN) Decelerations: Early (Korin Joyner RN) Datetime: 11/22/2016 09:49 NBP Sys/Ani/Mean (mmHg): 127 (QS system process) : 77 (QS system process) : 97 (QS system process) Pulse: 83 (QS system process) LaborFlag: Antepartum (QS system process) Datetime: 11/22/2016 09:45 Monitor Mode: External; Palpation (Korin Joyner RN) Frequency (min): 1.5-2 (Korin Joyner RN) Quality: Moderate to Strong (Korin Joyner RN) Duration (sec): 50-90 (Korin Joyner RN) Duration Criteria: Less than Two 120 Second Contractions (Korin Joyner RN) Pattern: Normal: <= 5 Contractions in 10 Minutes (Korin Joyner RN) Resting Tone (Palpate): Relaxed (Korin Joyner RN) Monitor Mode: External US (Korin Joyner RN) FHR Baseline Rate : 135 (Korin Joyner RN) Variability: Minimal - Undetectable to <=5 bpm (Korin Joyner RN) Accelerations: None (Korin Joyner RN) Decelerations: Early (Korin Joyner RN) Datetime: 11/22/2016 09:34 NBP Sys/Ani/Mean (mmHg): 119 (QS system process) : 72 (QS system process) : 90 (QS system process) Pulse: 80 (QS system process) LaborFlag: Antepartum (QS system process) Datetime: 11/22/2016 09:30 Monitor Mode: External; Palpation (Korin Joyner RN) Frequency (min): 1.5-2 (Korin Joyner RN) Quality: Moderate to Strong (Korin Joyner RN) Duration (sec): 60-90 (Korin Joyner RN) Duration Criteria: Less than Two 120 Second Contractions (Korin Joyner RN) Pattern: Normal: <= 5 Contractions in 10 Minutes (Korin Joyner RN) Resting Tone (Palpate): Relaxed (Korin Joyner RN) Monitor Mode: External US (Korin Joyner RN) FHR Baseline Rate : 140 (Korin Joyner RN) Variability: Minimal - Undetectable to <=5 bpm (Korin Baidy, RN) Accelerations: 15X15 (Korin Joyner, RN) Decelerations: Early (Korin Joyner, RN) Datetime: 11/22/2016 09:20 NBP Sys/Ani/Mean (mmHg): 141 (QS system process) : 82 (QS system process) : 104 (QS system process) Pulse: 93 (QS system process) Communication Comments: Dr Sanchez notified of SVE of 9.5/100/+2, with intermittent pressure. (Korin Joyner RN) LaborFlag: Antepartum (QS system process) Datetime: 11/22/2016 09:18 Dilatation (cm): 9.5 (Korin Joyner, FAVIO) Effacement (%): 100 (Korin Joyner RN) Station: 2 (Korin Joyner RN) Exam by: Juan Diego Joyner RN (Korin Joyner, FAVIO) Datetime: 11/22/2016 09:10 Pain Presence: Intermittent (Korin Joyner RN) Pain Type: Pressure (Korin Joyner RN) Pain Location: Perineum (Korin Joyner RN) Pain Assessment Comments: pt states that she can feel presssure with ctx (Korin Joyner RN) LaborFlag: Antepartum (QS system process) Datetime: 11/22/2016 09:04 NBP Sys/Ani/Mean (mmHg): 129 (QS system process) : 66 (QS system process) : 90 (QS system process) Pulse: 82 (QS system process) LaborFlag: Antepartum (QS system process) Datetime: 11/22/2016 09:00 Monitor Mode: External; Palpation (Korin Joyner, RN) Frequency (min): 1.5-2 (Korin Joyner, RN) Quality: Moderate to Strong (Korin Joyner, RN) Duration (sec): 70-120 (Korin Joyner, RN) Duration Criteria: More than Two 120 Second or Greater Contractions (Korin Joyner, RN) Pattern: Normal: <= 5 Contractions in 10 Minutes (Korin Joyner, RN) Resting Tone (Palpate): Relaxed (Korin Joyner, RN) Monitor Mode: External US (Korin Joyner, RN) FHR Baseline Rate : 150 (Korin Joyner, RN) Variability: Minimal - Undetectable to <=5 bpm (Korin Baijesica, RN) Accelerations: None (Korin Joyner, RN) Decelerations: Early (Korin Joyner, RN) Datetime: 11/22/2016 08:51 NBP Sys/Ani/Mean (mmHg): 127 (QS system process) : 72 (QS system process) : 92 (QS system process) Pulse: 81 (QS system process) LaborFlag: Antepartum (QS system process) Datetime: 11/22/2016 08:45 Monitor Mode: External; Palpation (Korin Joyner, RN) Frequency (min): 1-2 (Korin Baijesica, RN) Quality: Moderate to Strong (Korin Baidy, RN) Duration (sec): 60-90 (Korin Baidy, RN) Duration Criteria: Less than Two 120 Second Contractions (Korin Baidy, RN) Pattern: Normal: <= 5 Contractions in 10 Minutes (Korin Baidy, RN) Resting Tone (Palpate): Relaxed (Korin Baijesica, RN) Monitor Mode: External US (Korin Joyner, RN) FHR Baseline Rate : 150 (Korin Baijesica, RN) Variability: Minimal - Undetectable to <=5 bpm (Korin Baidy, RN) Accelerations: None (Korin Baidy, RN) Decelerations: Early (Korin Baidy, RN) Datetime: 11/22/2016 08:34 NBP Sys/Ani/Mean (mmHg): 129 (QS system process) : 63 (QS system process) : 90 (QS system process) Pulse: 82 (QS system process) Respirations: 16 (Korin Baidy, RN) Temperature (F): 98.4 (Korin Baidy, RN) Temperature (C): 36.9 (QS system process) LaborFlag: Antepartum (QS system process) Datetime: 11/22/2016 08:32 Monitor Interventions for UA: [place] Adjusted (Korin Joyner, RN) Monitor Interventions for FHR: Ultrasound Adjusted (Korin Joyner, RN) Datetime: 11/22/2016 08:31 Patient Position/Activity: Left Extreme; Peanut Ball (Korin Joyner, RN) Datetime: 11/22/2016 08:30 Monitor Mode: External; Palpation (Korin Joyner, FAVIO) Frequency (min): 1-2 (Korin Joyner RN) Quality: Moderate to Strong (Korin Joyner RN) Duration (sec): 60-80 (Korin Joyner RN) Duration Criteria: Less than Two 120 Second Contractions (Korin Joyner RN) Pattern: Normal: <= 5 Contractions in 10 Minutes (Korin Joyner RN) Resting Tone (Palpate): Relaxed (Korin Joyner RN) Contraction Comments: couplets noted (Korin Joyner RN) Monitor Mode: External US (Korin Joyner RN) FHR Baseline Changes: Unable to Determine (Korin Joyner RN) Variability: Moderate 6-25 bpm (Korin Joyner RN) Accelerations: None (Korin Joyner RN) Decelerations: Early; Late (Korin Joyner RN) Datetime: 11/22/2016 08:20 NBP Sys/Ani/Mean (mmHg): 122 (QS system process) : 64 (QS system process) : 86 (QS system process) Pulse: 86 (QS system process) LaborFlag: Antepartum (QS system process) Datetime: 11/22/2016 08:15 Monitor Mode: External; Palpation (Korin Joyner RN) Frequency (min): 2 (Korin Joyner RN) Quality: Moderate to Strong (Korin Joyner RN) Duration (sec): 60-90 (Korin Joyner RN) Duration Criteria: Less than Two 120 Second Contractions (Korin Joyner RN) Pattern: Normal: <= 5 Contractions in 10 Minutes (Korin Joyner RN) Resting Tone (Palpate): Relaxed (Korin Joyner RN) Monitor Mode: External US (Korin Joyner RN) FHR Baseline Rate : 140 (Korin Joyner RN) Variability: Moderate 6-25 bpm (Korin Joyner RN) Accelerations: None (Korin Joyner RN) Decelerations: Early (Korin Joyner RN) Datetime: 11/22/2016 08:11 Monitor Interventions for FHR: Ultrasound Adjusted (Korin Joyner RN) Patient Position/Activity: Peanut Ball; Right Extreme (Korin Joyner RN) Datetime: 11/22/2016 08:07 Dilatation (cm): 8.0 (Korin Joyner RN) Effacement (%): 100 (Korin Joyner RN) Station: 1 (Korin Joyner RN) Exam by: Dr Sanchez (Korin Joyner, FAVIO) Communication: Provider at Bedside (Korin Joyner RN) Provider Notified (Name): Dr Sanchez (Korin Joyner RN) Datetime: 11/22/2016 08:05 NBP Sys/Ani/Mean (mmHg): 119 (QS system process) : 70 (QS system process) : 90 (QS system process) Pulse: 87 (QS system process) LaborFlag: Antepartum (QS system process) Datetime: 11/22/2016 08:00 Monitor Mode: External; Palpation (Korin Joyner RN) Frequency (min): 1-2 (Korin Joyner RN) Quality: Moderate to Strong (Korin Joyner RN) Duration (sec): 60-100 (Korin Joyner RN) Duration Criteria: Less than Two 120 Second Contractions (Korin Joyner RN) Pattern: Normal: <= 5 Contractions in 10 Minutes (Korin Joyner RN) Resting Tone (Palpate): Relaxed (Korin Joyner RN) Monitor Mode: External US (Korin Joyner RN) FHR Baseline Rate : 140 (Korin Joyner RN) Variability: Minimal - Undetectable to <=5 bpm (Korin Joyner RN) Accelerations: None (Korin Joyner, RN) Decelerations: Early (Korin Joyner, RN) Datetime: 11/22/2016 07:50 NBP Sys/Ani/Mean (mmHg): 125 (QS system process) : 73 (QS system process) : 91 (QS system process) Pulse: 89 (QS system process) LaborFlag: Antepartum (QS system process) Datetime: 11/22/2016 07:45 Monitor Mode: External; Palpation (Korin Joyner RN) Frequency (min): 1.5-2 (Korin Joyner RN) Quality: Moderate to Strong (Korin Joyner RN) Duration (sec): 60-90 (Korin Joyner RN) Duration Criteria: Less than Two 120 Second Contractions (Korin Joyner RN) Pattern: Normal: <= 5 Contractions in 10 Minutes (Korin Joyner RN) Resting Tone (Palpate): Relaxed (Korin Joyner RN) Monitor Mode: External US (Korin Joyner RN) FHR Baseline Rate : 140 (Korin Joyner RN) Variability: Moderate 6-25 bpm (Korin Joyner RN) Accelerations: None (Korin Joyner, RN) Decelerations: Early (Korin Joyner, RN) Datetime: 11/22/2016 07:34 NBP Sys/Ani/Mean (mmHg): 121 (QS system process) : 74 (QS system process) : 93 (QS system process) Pulse: 95 (QS system process) LaborFlag: Antepartum (QS system process) Datetime: 11/22/2016 07:30 Monitor Mode: External; Palpation (Korin Joyner RN) Frequency (min): 1-2.5 (Korin Joyner RN) Quality: Moderate to Strong (Korin Joyner RN) Duration (sec): 60-100 (Korin Joyner RN) Duration Criteria: Less than Two 120 Second Contractions (Korin Joyner RN) Pattern: Normal: <= 5 Contractions in 10 Minutes (Korin Joyner RN) Resting Tone (Palpate): Relaxed (Korin Joyner RN) Monitor Mode: External US (Korin Joyner RN) FHR Baseline Rate : 135 (Korin Baidy, RN) Variability: Moderate 6-25 bpm (Korin Baidy, RN) Accelerations: None (Korin Baidy, RN) Decelerations: None (Korin Baidy, RN) Datetime: 11/22/2016 07:19 Level of Consciousness: Fully Conscious (Korin Baidy, RN) DTR's/Clonus: DTRs 2+; No Clonus (Korin Baidy, RN) Headache: Denies (Korin Baidy, RN) Breath Sounds, Left: Clear and Equal (Korin Baidy, RN) Breath Sounds, Right: Clear and Equal (Korin Baidy, RN) Nausea/Vomiting: Denies (Korin Baidy, RN) RUQ Epigastric Pain: Denies (Korin Baidy, RN) Datetime: 11/22/2016 07:18 NBP Sys/Ani/Mean (mmHg): 129 (QS system process) : 78 (QS system process) : 98 (QS system process) Pulse: 96 (QS system process) LaborFlag: Antepartum (QS system process) Datetime: 11/22/2016 07:17 NBP Sys/Ani/Mean (mmHg): 121 (QS system process) : 69 (QS system process) : 90 (QS system process) Pulse: 108 (QS system process) LaborFlag: Antepartum (QS system process) Datetime: 11/22/2016 07:16 NBP Sys/Ani/Mean (mmHg): 122 (QS system process) : 61 (QS system process) : 85 (QS system process) Pulse: 96 (QS system process) LaborFlag: Antepartum (QS system process) Datetime: 11/22/2016 07:15 NBP Sys/Ani/Mean (mmHg): 127 (QS system process) : 63 (QS system process) : 89 (QS system process) Pulse: 105 (QS system process) Monitor Mode: External; Palpation (Korin Joyner, FAVIO) Frequency (min): 1-2 (Korin Joyner, RN) Quality: Moderate to Strong (Korin Joyner, RN) Duration (sec): 60-90 (Korin Joyner, RN) Duration Criteria: Less than Two 120 Second Contractions (Korin Joyner, RN) Pattern: Normal: <= 5 Contractions in 10 Minutes (Korin Joyner, RN) Resting Tone (Palpate): Relaxed (Korin Joyner, RN) Monitor Mode: External US (Korin Joyner RN) FHR Baseline Rate : 135 (Korin Joyner, RN) Variability: Moderate 6-25 bpm (Korin Baijesica, RN) Accelerations: None (Korin Joyner, RN) Decelerations: None (Korin Joyner, RN) LaborFlag: Antepartum (QS system process) Datetime: 11/22/2016 07:14 NBP Sys/Ani/Mean (mmHg): 133 (QS system process) : 65 (QS system process) : 93 (QS system process) Pulse: 100 (QS system process) LaborFlag: Antepartum (QS system process) Datetime: 11/22/2016 07:13 NBP Sys/Ani/Mean (mmHg): 132 (QS system process) : 66 (QS system process) : 92 (QS system process) Pulse: 116 (QS system process) LaborFlag: Antepartum (QS system process) Datetime: 11/22/2016 07:12 NBP Sys/Ani/Mean (mmHg): 127 (QS system process) : 60 (QS system process) : 87 (QS system process) Pulse: 109 (QS system process) LaborFlag: Antepartum (QS system process) Datetime: 11/22/2016 07:11 NBP Sys/Ani/Mean (mmHg): 119 (QS system process) : 67 (QS system process) : 88 (QS system process) Pulse: 110 (QS system process) LaborFlag: Antepartum (QS system process) Datetime: 11/22/2016 07:10 NBP Sys/Ani/Mean (mmHg): 117 (QS system process) : 64 (QS system process) : 85 (QS system process) Pulse: 95 (QS system process) LaborFlag: Antepartum (QS system process) Datetime: 11/22/2016 07:09 NBP Sys/Ani/Mean (mmHg): 124 (QS system process) : 71 (QS system process) : 91 (QS system process) Pulse: 104 (QS system process) LaborFlag: Antepartum (QS system process) Datetime: 11/22/2016 07:08 NBP Sys/Ani/Mean (mmHg): 121 (QS system process) : 65 (QS system process) : 85 (QS system process) Pulse: 99 (QS system process) LaborFlag: Antepartum (QS system process) Datetime: 11/22/2016 07:07 NBP Sys/Ani/Mean (mmHg): 123 (QS system process) : 66 (QS system process) : 77 (QS system process) Pulse: 96 (QS system process) LaborFlag: Antepartum (QS system process) Datetime: 11/22/2016 07:06 NBP Sys/Ani/Mean (mmHg): 116 (QS system process) : 68 (QS system process) : 87 (QS system process) Pulse: 97 (QS system process) LaborFlag: Antepartum (QS system process) Datetime: 11/22/2016 07:05 NBP Sys/Ani/Mean (mmHg): 116 (QS system process) : 59 (QS system process) : 82 (QS system process) Pulse: 96 (QS system process) LaborFlag: Antepartum (QS system process) Datetime: 11/22/2016 07:04 NBP Sys/Ani/Mean (mmHg): 116 (QS system process) : 60 (QS system process) : 80 (QS system process) Pulse: 98 (QS system process) LaborFlag: Antepartum (QS system process) Datetime: 11/22/2016 07:02 NBP Sys/Ani/Mean (mmHg): 121 (QS system process) : 59 (QS system process) : 82 (QS system process) Pulse: 101 (QS system process) LaborFlag: Antepartum (QS system process)
[2016-11-23] MEDS: IBUPROFEN 800 MG TABLET PO SCH ×3 (05:15→21:50)
--- NOTE | 2016-11-23 06:07 | L&D General Admission ---
General Admit Datetime Report Generated by CPN: 11/23/2016 06:00 INFORMATION Patient Age: 21 (10/12/2016 14:07:QS system process) EDC: 11/27/2016 00:00 (10/22/2016 23:53:Sruthi Thurman RN) : 1 (10/22/2016 23:53:Sruthi Thurman RN) Para: 0 (11/21/2016 00:47:Carol Hernandez RN) Term: 0 (10/22/2016 23:53:Ariane Khan RN) : 0 (10/22/2016 23:53:Ariane Khan RN) Spontaneous Abortions: 0 (10/22/2016 23:53:Ariane Khan RN) Induced Abortions: 0 (10/22/2016 23:53:Ariane Khan RN) Livin (10/22/2016 23:53:Ariane Khan RN) Cesareans: 0 (10/22/2016 23:53:Ariane Khan RN) VBACs: 0 (10/22/2016 23:53:Ariane Khan RN) Ectopic: 0 (10/22/2016 23:53:Ariane Khan RN) Multiple Births: 0 (10/22/2016 23:53:Ariane Khan RN) Baby, Number in Womb: 1 (11/21/2016 00:47:Carol Hernandez RN) CARE Primary Full Roll Inspector: [facility] (10/22/2016 23:53:Sruthi Thurman RN) Adequate Care: Yes (10/22/2016 23:53:Elsie Santos RN) Height (in): 61 (11/22/2016 15:23:QS system process) ALLERGIES Medication Allergy: No (10/22/2016 23:53:Adriana Pinzon RN) Medication Allergies: No Known Allergies (11/21/2016) (11/21/2016 00:22:QS system process) Latex Allergy: No Latex Allergies (10/22/2016 23:53:Adriana Pinzon RN) Food Allergies: None (10/22/2016 23:53:Adriana Pinzon RN) Environmental Allergies: None (10/22/2016 23:53:Adriana Pinzon RN) COMMUNICATION Primary Language: Vietnamese (10/22/2016 23:53:Adriana Pinzon RN) Medical Tx Preferred Language: Vietnamese (10/22/2016 23:53:Adriana Pinzon RN) Communication Barrier(s): None (10/22/2016 23:53:Adriana Pinzon RN) DEMOGRAPHICS Address: [address] [place] [id number] (10/12/2016 14:07:QS system process) Zipcode: [address] (10/12/2016 14:07:QS system process) Home (10/12/2016 14:07:QS system process) SSN: [id number] (10/12/2016 14:07:QS system process) Next of Kin Name: RICO GRAF (10/12/2016 14:07:QS system process) Next of Kin (10/12/2016 14:07:QS system process) Next of Kin Relationship: SPO (10/12/2016 14:07:QS system process) Date of : 1995 (10/12/2016 14:07:QS system process) Marital Status: (10/12/2016 14:07:QS system process) Sex: Female (10/12/2016 14:07:QS system process) Race: (10/12/2016 14:07:QS system process) Ethnicity: Non- or (10/12/2016 14:07:QS system process) Hinduism: Presybeterian (10/12/2016 14:07:QS system process) DRUG AND ALCOHOL USE Alcohol: No (10/22/2016 23:53:Sruthi Thurman RN) Cigarettes: Never Smoker. [id number] (10/22/2016 23:53:Sruthi Thurman RN) Marijuana: No (10/22/2016 23:53:Sruthi Thurman RN) Cocaine: No (10/22/2016 23:53:Sruthi Thurman RN) Other Illicit Drugs: No (10/22/2016 23:53:Sruthi Thurman RN) Sheet Metal Assembler: Other (Annotations: Data stored by N on behalf of user) (10/22/2016 23:53:Elsie Santos RN) Feeding Preference: Breast (10/22/2016 23:53:Sruthi Thurman RN) Benefit of Breast Feed Discussed: Yes (10/22/2016 23:53:Dahiana De La Paz RN) Circumcision: N/A (10/22/2016 23:53:Sruthi Thurman RN) Classes Attended: No (10/22/2016 23:53:Sruthi Thurman RN) Tubal Ligation: No (10/22/2016 23:53:Sruthi Thurman RN) Tubal Authorization Signed: N/A (10/22/2016 23:53:Sruthi Thurman RN) Consent: N/A (10/22/2016 23:53:Sruthi Thurman RN) Consent Signed: N/A (10/22/2016 23:53:Sruthi Thurman RN) Pain Management Plans: Epidural (10/22/2016 23:53:Sruthi Thurman RN) Plans for Labor and Delivery: None (10/22/2016 23:53:Sruthi Thurman RN) Support Person: Rico (10/22/2016 23:53:Sruthi Thurman RN) Support Person Relationship: (10/22/2016 23:53:Sruthi Thurman RN) Cultural/Spritual Practice: No (10/22/2016 23:53:Sruthi Thurman RN) Spir/Cult Dietary Needs: No (10/22/2016 23:53:Sruthi Thurman RN) LIVING SITUATION/DISCHARGE PLAN Living Arrangements: Apartment (10/22/2016 23:53:Sruthi Thurman RN) Adequate Access to:: Electric; Heat; Refrigeration; Plumbing/Running water; Phone; Transportation (10/22/2016 23:53:Sruthi Thurman RN) WIC Program: No (10/22/2016 23:53:Sruthi Thurman RN) Discharge Director Of Channel Marketing Person: Rico (10/22/2016 23:53:Sruthi Thurman RN) Person to Help after Discharge: Rico (10/22/2016 23:53:Rosita Galvez RN) Currently Using Commun Resources: No (10/22/2016 23:53:Sruthi Thurman RN) Outside Agency/Cross Tie Cutter: N/A (10/22/2016 23:53:Sruthi Thurman RN) Car Seat for Discharge: Yes (10/22/2016 23:53:Sruthi Thurman RN) Adoption Requested: No (10/22/2016 23:53:Sruthi Thurman RN) LABS Blood Type: A Negative (10/22/2016 23:53:Sruthi Thurman RN) Antibody Screen: Negative (10/22/2016 23:53:Sruthi Thurman RN) Rho(G) this : Yes (10/22/2016 23:53:Gely Vega RN) Date Rho(G) Given: 09/08/2016 (10/22/2016 23:53:Ariane Khan RN) Hemoglobin: 12.7 (11/22/2016 05:26:QS system process) Hematocrit: 36.6 (11/22/2016 05:26:QS system process) MCV: 86 (11/22/2016 05:26:QS system process) Group Beta Strep: negative (10/22/2016 23:53:Gely Vega RN) Gonorrhea: Negative (10/22/2016 23:53:Gely Vega RN) Chlamydia: Negative (10/22/2016 23:53:Gely Vega RN) RPR/VDRL: Nonreactive (10/22/2016 23:53:Gely Vega RN) HIV Results: Negative (10/22/2016 23:53:Ariane Khan RN) Hepatitis B: Negative (10/22/2016 23:53:Sruthi Thurman RN) Rubella: Immune (10/22/2016 23:53:Sruthi Thurman RN) OB/PREVIOUS HISTORY Current Procedures: Ultrasound; NST (10/22/2016 23:53:Adriana Pinzon RN) History of Previous : No (10/22/2016 23:53:Adriana Pinzon RN) History of Gestational Diabetes: No (10/22/2016 23:53:Adriana Pinzon RN) History of PIH: No (10/22/2016 23:53:Adriana Pinzon RN) History of Incompetent Cervix: No (10/22/2016 23:53:Adriana Pinzon RN) History of Placenta Previa/Abrup: No (10/22/2016 23:53:Adriana Pinzon RN) History of Macrosomia: No (10/22/2016 23:53:Adriana Pinzon RN) History of IUGR: No (10/22/2016 23:53:Adriana Pinzon RN) History of Hemorrhage: No (10/22/2016 23:53:Adriana Pinzon RN) History of Loss/Stillborn: No (10/22/2016 23:53:Adriana Pinzon RN) History of : No (10/22/2016 23:53:Adriana Pinzon RN) History of D (Rh) Sensitization: No (10/22/2016 23:53:Adriana Pinzon RN) History Recurrent Loss/Stillborn: No (10/22/2016 23:53:Adriana Pinzon RN) History Depression/PP Depression: No (10/22/2016 23:53:Sruthi Thurman RN) History of Uterine Anomaly/ELZA: No (10/22/2016 23:53:Adriana Pinzon RN) History of Infertility: No (10/22/2016 23:53:Adriana Pinzon RN) History of ART Treatment: No (10/22/2016 23:53:Sruthi Thurman RN) History of ELZA: No (10/22/2016 23:53:Adriana Pinzon RN) Comments Obstetrical History: G1: current (10/22/2016 23:53:Adriana Pinzon RN) MEDICAL HISTORY Med Hx Diabetes: No (10/22/2016 23:53:Sruthi Thurman RN) Med Hx Hypertension: No (10/22/2016 23:53:Sruthi Thurman RN) Med Hx Heart Disease: No (10/22/2016 23:53:Sruthi Thurman RN) Med Hx Autoimmune Disorder: No (10/22/2016 23:53:Sruthi Thurman RN) Med Hx Kidney Disease/UTI: No (10/22/2016 23:53:Sruthi Thurman RN) Med Hx Neurologic/Epilepsy: No (10/22/2016 23:53:Sruthi Thurman RN) Med Hx Psychiatric Disorders: No (10/22/2016 23:53:Sruthi Thurman RN) Med Hx Hepatitis/Liver Disease: No (10/22/2016 23:53:Sruthi Thurman RN) Med Hx Varicosities/Phlebitis: No (10/22/2016 23:53:Sruthi Thurman RN) Med Hx Thyroid Dysfunction: No (10/22/2016 23:53:Sruthi Thurman RN) Med Hx Trauma/Violence: No (10/22/2016 23:53:Sruthi Thurman RN) Med Hx Blood Transfusion: No (10/22/2016 23:53:Sruthi Thurman RN) Med Hx Pulmonary (Asthma,TB): No (10/22/2016 23:53:Sruthi Thurman RN) Med Hx Breast: No (10/22/2016 23:53:Sruthi Thurman RN) Med Hx HAND BASEBALL SEWER Surgery: No (10/22/2016 23:53:Sruthi Thurman RN) Med Hx Hospitalization/Surgery: No (10/22/2016 23:53:Sruthi Thurman RN) Med Hx Anesthetic Complications: Unknown (10/22/2016 23:53:Sruthi Thurman RN) Med Hx Abnormal Pap Smear: No (10/22/2016 23:53:Sruthi Thurman RN) Other Medical Diseases: No (10/22/2016 23:53:Sruthi Thurman RN) Med Hx Significant Family Hx: No (10/22/2016 23:53:Sruthi Thurman RN) INFECTIOUS HISTORY Inf Hx Gonorrhea: No (10/22/2016 23:53:Sruthi Thurman RN) Inf Hx Chlamydia: No (10/22/2016 23:53:Sruthi Thurman RN) Inf Hx Syphilis: No (10/22/2016 23:53:Sruthi Thurman RN) Inf Hx HIV/AIDS: No (10/22/2016 23:53:Sruthi Thurman RN) Inf Hx Human Papilloma Virus: No (10/22/2016 23:53:Sruthi Thurman RN) Inf Hx Pt/Partner Genital Herpes: No (10/22/2016 23:53:Sruthi Thurman RN) Inf Hx Tuberculosis/Exposure: No (10/22/2016 23:53:Sruthi Thurman RN) Inf Hx Hepatitis B,C: No (10/22/2016 23:53:Sruthi Thurman RN) Inf Hx Rash or Viral Illness: No (10/22/2016 23:53:Sruthi Thurman RN) GENETIC HISTORY Gen Hx Age >=35 at SHABANA: No (10/22/2016 23:53:Adriana Pinzon RN) Gen Hx Thalassemia: No (10/22/2016 23:53:Adriana Pinzon RN) Gen Hx Congenital Heart Defect: No (10/22/2016 23:53:Adriana Pinzon RN) Gen Hx Neural Tube Defect: No (10/22/2016 23:53:Adriana Pinzon RN) Gen Hx Down's Syndrome: No (10/22/2016 23:53:Adriana Pinzon RN) Gen Hx Chidi-Sachs: No (10/22/2016 23:53:Adriana Pinzon RN) Gen Hx Bernardino: No (10/22/2016 23:53:Adriana Pinzon RN) Gen Hx Familial Dysautonomia: No (10/22/2016 23:53:Adriana Pinzon RN) Gen Hx Sickle Cell Disease/Trait: No (10/22/2016 23:53:Adriana Pinzon RN) Gen Hx Hemophilia/Blood Disorder: No (10/22/2016 23:53:Adriana Pinzon RN) Gen Hx Muscular Dystrophy: No (10/22/2016 23:53:Adriana Pinzon RN) Gen Hx Cystic Fibrosis: No (10/22/2016 23:53:Adriana Pinzon RN) Gen Hx Huntingtons Chorea: No (10/22/2016 23:53:Adriana Pinzon RN) Gen Hx Mental Retardation/Autism: Yes (10/22/2016 23:53:Sruthi Thurman RN) Gen Hx Tested for Fragile X: No (10/22/2016 23:53:Adriana Pinzon RN) Gen Hx Other Inher/Chromosomal: No (10/22/2016 23:53:Adriana Pinzon RN) Gen Hx Maternal Metabolic DO: No (10/22/2016 23:53:Adriana Pinzon RN) Gen Hx Pt Father or FOB Defect: No (10/22/2016 23:53:Adriana Pinzon RN) Gen Hx Other Genetic History: No (10/22/2016 23:53:Adriana Pinzon RN) Gen Hx Drugs/Meds since LMP: Yes (10/22/2016 23:53:Carol Hernandez RN) Gen Hx Medications: PNV (10/22/2016 23:53:Carol Hernandez RN)
--- NOTE | 2016-11-23 06:15 | L&D Care Plan ---
LD CARE PLANS Datetime Report Generated by CPN: 11/23/2016 06:15 Datetime: 11/22/2016 05:11 Pain State: Risk For (Fiordaliza Velasquez RN) Related To: Labor and Delivery Process; Surgical Procedure; Complication(s) of ; Post (Fiordaliza Velasquez RN) Goal(s): Patients Pain will be Assessed and Managed; Patient will Verbalize Adequate Relief of Pain or the Ability to [place] with Current Pain (Fiordaliza Velasquez RN) Interventions: Assess Pain Severity on Scale of 0 (None) to 5 (Severe); Assess Type, Location and Intensity of Pain Each Time Client Reports Discomfort and Notify Provider if Unusal Pain Develops; Encourage Proper Breathing and Relaxation Techniques; Offer Alternatives Such as Repositioning, Calm Environment, Massages, Diversional Activities, Ice Pack, Splinting, and Ambulation; Administer Analgesics as Ordered; Assist with Epidural Placement as Appropriate; Evaluate Therapeutic Effectiveness of Medication and Treatments (Fiordaliza Velasquez RN) Outcome: Patient will Report Absence or Relief of Pain Consistent with Established Pain Goal (Fiordaliza Velasquez RN) Status: Ongoing (Fiordaliza Velasquez RN) Outcome: Patient will have a Decrease in Signs and Symptoms of Discomfort (Fiordaliza Velasquez RN) Status: Ongoing (Fiordaliza Velasquez RN) Outcome: Pain will be Controlled During Procedures (Fiordaliza Velasquez RN) Status: Ongoing (Fiordaliza Velasquez RN) Anxiety State: Risk For (Fiordaliza Velasquez RN) Related To: Labor and Delivery Process; Surgical Procedure; Fear of Unknown (Fiordaliza Velasquez RN) Goal(s): Patient will have Decreased Anxiety and be able to Function at Acceptable Levels (Fiordaliza Velasquez RN) Interventions: Assess Verbal and Nonverbal Behavioral Indicators of Anxiety; Assist Patient to Identify and Verbalize Symptoms of Anxiety; Identify and Demonstrate Techniques to Control Anxiety; Assist Patient with Coping Mechanisms to Manage Anxiety; Provide Theraputic Touch for the Patient; Explain to Patient, Using a Calm Reassuring Approach and Nonmedical Terms, All Activities, Procedures, and Concerns; Instruct Patient and Family about Post Discharge Care, Limitations, Symptoms to Report and Resources Available (Fiordaliza Velasquez RN) Outcome: Patient will Identify, Verbalize and Demonstrate Techniques to Control Anxiety (Fiordaliza Velasquez RN) Status: Ongoing (Fiordaliza Velasquez RN) Outcome: Patient's Posture, Facial Expressions, Gestures and Activity Level will Reflect Decreased Anxiety (Fiordaliza Velasquez RN) Status: Ongoing (Fiordaliza Velasquez RN) Outcome: Patient will Verbalize a Sense of Control and/or Acceptance of the Situation (Fiordaliza Velasquez RN) Status: Ongoing (Fiordaliza Velasquez RN) Outcome: Patient will Identify and Utilize Support Person (Fiordaliza Velasquez RN) Status: Ongoing (Fiordaliza Velasquez RN) Knowledge Deficit State: Risk For (Fiordaliza Velasquez RN) Related To: Labor and Delivery Process; Surgical Procedures; Treatment and Procedures (Fiordaliza Velasquez RN) Goal(s): Patient will Accurately Verbalize Understanding of Plan of Care and Treatment; Patient and Family will Accurately Verbalize Understanding of the Disease Process (Fiordaliza Velasquez RN) Interventions: Assess Motivation and Willingness of Patient/Family to Learn; Assess Preferred Learning Mode: One to One Instruction, Reading, Videos, Group Discussion or Demonstration; Assess Barriers to Learning: Pain, Emotional State, Language Barrier, Cognitive Impairment, Visual or Hearing Deficits; Assess Patient and Family Knowledge of Disease Process, Medications and Treatment; Discuss Therapy and/or Treatment Options, Describe Rationale Behind Management, Therapy and Treatment Recommendations; Instruct Patient and Family on Signs and Symptoms to Report; Instruct Patient and Family on Medication Effects and Side Effects; Provide Appropriate and Timely Education Using Multiple Techniques; Provide Patient and Family with Support Group Information and Resources; Give Clear and Thorough Explanations and Demonstrations (Fiordaliza Velasquez RN) Outcome: Patient and Family will Verbalize Understanding of Condition, Treatment and Signs and Symptoms to Report (Fiordaliza Velasquez RN) Status: Ongoing (Fiordaliza Velasquez RN) Outcome: Patient will Identify Perceived Learning Needs and Express Motivation to Learn (Fiordaliza Velasquez RN) Status: Ongoing (Fiordaliza Velasquez RN) Outcome: Patient will Verbalize Understanding of Desired Content, and/or Performs Desired Skill Prior to Discharge (Fiordaliza Velasquez RN) Status: Ongoing (Fiordaliza Velasquez RN) Infection State: Risk For (Fiordaliza Velasquez RN) Related To: Surgical Procedures; Prolonged Labor or Induction; Premature/Prolonged Rupture of Membranes (Fiordaliza Velasquez RN) Goal(s): The Patient will be Free of Infection, Vital Signs Stable and Lab Work within Normal Parameters (Fiordaliza Velasquez RN) Interventions: Instruct and Reinforce Proper Handwashing, Hygiene, and Care Techniques to Patient and Family; Monitor Vital Signs; Monitor Patient for the Following Signs of Infection: Fever, Abdominal Tenderness, Unusual Discharge; Monitor Aminiotic Fluid, Urine and Lochia for Color and Odor; Observe Wounds, Incisions and Invasive Line Sites for Redness, Drainage and Edema; Assess IV Sites per Hospital Policy; Monitor Lab and Test Results and Notify Provider of Abnormal Findings; Assess Nutritional Status and Promote Good Nutrition (Fiordaliza Velasquez RN) Outcome: Patient will Remain Free of Infection (Fiordaliza Velasquez RN) Status: Ongoing (Fiordaliza Velasquez RN) Outcome: Infection will be Recognized Early to Allow for Prompt Treatment (Fiordaliza Velasquez RN) Status: Ongoing (Fiordaliza Velasquez RN) Outcome: Patient will have Vital Signs Within Expected Range (Fiordaliza Velasquez RN) Status: Ongoing (Fiordaliza Velasquez RN) Fluid Volume State: Risk For (Fiordaliza Velasquez RN) Related To: Surgical Procedures; Prolonged Labor or Induction; Hemorrhage (Fiordaliza Velasquez RN) Goal(s): Patient will Achieve and Maintain a Balanced Fluid Volume Status; Hemodynamically Stable (Fiordaliza Velasquez RN) Interventions: Monitor Vital Signs; Auscultate Breath Sounds; Monitor Patient for Skin Turgor, Mucous Membranes, Dry Skin, Weakness, Headaches and Confusion; Provide Oral Fluids as Ordered; Initiate and Maintain Intravenous Fluids as Ordered; Monitor Intake and Output as Indicated Per Patient Status; Accurately Measure Blood Loss; Monitor Lab and Test Results as Obtained and Notify Provider of Abnormal Findings; Monitor Patient's Weight (Fiordaliza Velasquez RN) Outcome: Patient will have Clear Lung Sounds (Fiordaliza Velasquez RN) Status: Ongoing (Fiordaliza Velasquez RN) Outcome: Patient will have Vital Signs within Expected Range (Fiordaliza Velasquez, RN) Status: Ongoing (Fiordaliza Velasquez RN) Outcome: Urine Output will be within Expected Range (Fiordaliza Velasquez, RN) Status: Ongoing (Fiordaliza Velasquez RN) Outcome: Patient will have Minimal Generalized or Upper Extremity Edema (Fiordaliza Velasquez, RN) Status: Ongoing (Fiordaliza Velasquez RN) Injury State: Risk For (Fiordaliza Velasquez RN) Related To: Labor and Delivery Process (Fiordaliza Velasquez RN) Goal(s): Patient will Remain Free from Injury (Fiordaliza Velasquez RN) Interventions: Monitoring as per Hospital Protocol; Assess Neurological Status; Perform Risk Assessment of Patients with Induction and ; Perform Fall Risk Assessment and Prevention per Hospital Protocol; Perform DVT Risk Assessment and Prophylaxis per Hospital Protocol; Ensure that Oxygen, Suction, and Resuscitation Medications and Equipment are Readily Available; Confirm Patient ID Prior to Procedure(s) and Medication Administration per Hospital Policy (Fiordaliza Velasquez RN) Outcome: Successful Fall Risk Prevention (Fiordaliza Velasquez RN) Status: Ongoing (Fiordaliza Velasquez RN) Outcome: Patient will Deliver without Adverse Sequela (Fiordaliza Velasquez RN) Status: Ongoing (Fiordaliza Velasquez RN) Outcome: Patient's Neurological Status will Remain Stable (Fiordaliza Velasquez RN) Status: Ongoing (Fiordaliza Velasquez RN) Impaired Skin Integrity State: Risk For (Fiordaliza Velasquez RN) Related To: Vaginal Delivery; Surgical Procedures; Prolonged Bedrest (Fiordaliza Velasquez RN) Goal(s): Patient will Maintain Optimal Skin Integrity, Free of Breakdown, Injury or Infection (Fiordaliza Velasquez RN) Interventions: Complete Screening for Pressure Ulcer Risk and Initiate Protocol per Hospital Policy; Monitor Site of Skin Impairment for Color Changes, Redness, Swelling, Warmth, Pain or Other Signs of Infection; Encourage and Assist with Position Changes; Monitor Patient's Mobility Status; Provide Adequate Nutrition and Fluids; Teach Patient Appropriate Hygienic Care; Teach Patient/Family Skin Care Management (Fiordaliza Velasquez, RN) Outcome: Patient will not have Evidence of Injury Such as Skin Breakdown, Scrapes, Cuts, or Bruising (Fiordaliza Field, RN) Status: Ongoing (Fiordaliza Velasquez RN) Outcome: Patient will Report Any Altered Sensation or Pain at Site of Skin Impairment (Fiordaliza Velasquez RN) Status: Ongoing (Fiordaliza Velasquez RN) Outcome: Patients Incisions and Wounds will be without Signs or Symptoms of Infection (Fiordaliza Velasquez RN) Status: Ongoing (Fiordaliza Velasquez RN) Outcome: Patient will Demonstrate Understanding of Plan to Heal Skin and Prevent Reinjury and Verbalize Risk Factors (Fiordaliza Velasquez RN) Status: Ongoing (Fiordaliza Velasquez RN) Parenting Impaired State: Not Applicable (Fiordaliza , ) Nutrition State: Not Applicable (Fiordaliza Velasquez, ) Grieving State: Not Applicable (Fiordaliza Field, RN) Additional Care Plan State: Not Applicable (Fiordaliza Field, RN)
[2016-11-23 07:28] LABS: HEMATOCRIT 30.7 % (36.0-47.0); HEMOGLOBIN 10.7 g/dL (12.0-15.5); HGB HCT DIFFERENCE 1.4; MEAN CORPUSCULAR HEMOGLOBIN 30.3 pg (27.0-33.4); MEAN CORPUSCULAR HGB CONC 34.7 g/dL (32.0-36.0); MEAN CORPUSCULAR VOLUME 88 fl (80-97); RED BLOOD COUNT 3.51 10^6/uL (3.72-5.28); RED CELL DISTRIBUTION WIDTH 13.5 % (11.5-14.0); WHITE BLOOD COUNT 12.8 10^3/uL (4.0-10.5)
[2016-11-23] MEDS: PRENATAL VITAMIN W-O CA NO5/FE FUMARATE/FA CAPSULE PO SCH (09:57)
[2016-11-23] MEDS: FERROUS SULFATE 325 MG TABLET PO SCH ×2 (09:58→17:00)
[2016-11-23] MEDS: DOCUSATE SODIUM 100 MG CAPSULE PO SCH ×2 (09:58→16:59)
[2016-11-23] MEDS: SENNOSIDES/DOCUSATE 8.6-50 MG 1 EACH TABLET PO SCH (09:58)
--- NOTE | 2016-11-23 10:15 | Delivery Summary ---
Del Sum A-C Datetime Report Generated by CPN: 11/23/2016 10:15 ADMISSION DATA Chief Complaint: Uterine Contractions Indication for Induction: Not Applicable Admission Impression: Term, Intrauterine ; Active Labor DELIVERY PERSONNEL Delivery Doctor:: Fiordaliza Sanchez, MD Labor and Delivery Nurse:: Korin Joyner rubber gasket inspector trimmer Nurse:: Ilda Richter, RN MATERNAL INFORMATION Delivery Anesthesia: Epidural Medications After Delivery: Pitocin Drip 20 Units/1000ml NSS Estimated Blood Loss (ml): 200 Maternal Complications: None Provider Comments: Pt progressed to over intact perineum of female with apgars 9 an 9. Placenta spontaneous and intact. No lacerations. Mom and baby doing well. LABOR SUMMARY EDC: 11/27/2016 00:00 No. Babies in Womb: 1 Attempted: No Labor Anesthesia: Epidural LABOR INFORMATION Reason for Induction: Not Applicable Onset of Labor: 11/22/2016 05:05 Complete Dilatation: 11/22/2016 10:11 Oxytocin: N/A Group B Beta Strep: negative Antibiotics # of Doses: 0 Steroids Given: None Reason Steroids Not Administered: Not Applicable [facility] Membranes Rupture Method: Artificial Rupture of Membranes: 11/22/2016 06:48 Length of Rupture (hr): 3.78 Amniotic Fluid Color: Clear Amniotic Fluid Amount: Moderate Amniotic Fluid Odor: Normal STAGES OF LABOR Stage 1 hr: 5 Stage 1 min: 6 Stage 2 hr: 0 Stage 2 min: 24 Stage 3 hr: 0 Stage 3 min: 3 Total Time in Labor hr: 5 Total Time in Labor min: 33 VAGINAL DELIVERY Episiotomy: None Laceration Extension: N/A Laceration Type: None Laceration Repair: Not Applicable Sponge Count Correct: Yes Sharps Count Correct: N/A CSECTION DELIVERY Secondary Indication: N/A CSection Incidence: N/A Labor: N/A Elective: N/A CSection Incision: N/A BABY A INFORMATION Infant Delivery Date/Time: 11/22/2016 10:35 Method of Delivery: Vaginal Born in Route : No : N/A Forceps: N/A Vacuum Extraction: N/A Shoulder Dystocia : No PRESENTATION/POSITION BABY A Presentation: Cephalic Cephalic Presentation: Vertex Vertex Position: Right Occipital Anterior Breech Presentation: N/A PLACENTA INFORMATION BABY A Placenta Delivery Time : 11/22/2016 10:38 Placenta Method of Delivery: Spontaneous Placenta Status: Delivered SCORES BABY A Heart Rate 1 min: >100 bpm Resp Effort 1 min: Good Cry Reflex Irritability 1 min: Cough or Sneeze or Pulls Away Muscle Tone 1 min: Active Motion Color 1 min: Body Parkway, Extremities Blue Resuscitation Effort 1 min: Tactile Stimulation SCORE 1 MIN: 9 Heart Rate 5 min: >100 bpm Resp Effort 5 min: Good Cry Reflex Irritability 5 min: Cough or Sneeze or Pulls Away Muscle Tone 5 min: Active Motion Color 5 min: Body Parkway, Extremities Blue Resuscitation Effort 5 min: Tactile Stimulation SCORE 5 MIN: 9 INFANT INFORMATION BABY A Gestational Age at Delivery: 39.2 Gestational Status: Full Term- 39- 40.6 Weeks Infant Outcome : Liveborn Condition : Stable Sex: Female IDENTIFICATION BABY A Verification Date/Time: 11/22/2016 10:40 ID Band Number: [id number] Mother's Name Verified: Yes RN Verifying Infant: Jacki Richter, RN and A. Liu, RN WEIGHT/LENGTH BABY A Infant Birthweight (gm): 3040 Weight (lb): 6 Weight (oz): 11 Length (in): 20.25 Length (cm): 51.44 CORD INFORMATION BABY A No. Cord Vessels: 3 Nuchal Cord : N/A Cord Blood Taken: Yes-For Eval (Mom's Blood Type - or O+) Suction: None ASSESSMENT BABY A Physical Findings at Delivery: Bruising Physical Findings- Other: facial bruising Respirations: Appears Normal Skin to Skin: Yes Skin to Skin Time (min): 90 Dermatology Teacher/ALS Called : No Infant Care By: Jacki Richter, RN Transferred To: Remains with Mother BABY B INFORMATION : N/A SIGNATURES Signature: with User ID: [email or web address]
--- NOTE | 2016-11-23 10:16 | PDOC PROGRESS REPORT ---
Subjective-OB Subjective: Post Delivery Day: 21 year old. Denies any needs at this time Physical Exam (OB) Vital Signs: Temp Pulse Resp BP Pulse Ox 97.9 F 79 15 116/67 99 11/23/16 08:00 11/23/16 08:00 11/23/16 08:00 11/23/16 08:00 11/23/16 08:00 Intake & Output 11/22/16 11/23/16 11/24/16 06:59 06:59 06:59 Weight 81 kg - Lochia Lochia Amount: Scant < 10 ml Lochia Color: Rubra/Red - Abdomen Description: Tender, Soft Hernia Present: No Bowel Sounds: Normoactive Flatus Presence: Present Stool: No Fundal Description: Firm, Midline Fundal Height: u/u - u/2 Objective-Diagnostic Laboratory: 11/23/16 07:12 11/23/16 07:12 WBC 12.8 H RBC 3.51 L Hgb 10.7 L Hct 30.7 L MCV 88 MCH 30.3 MCHC 34.7 RDW 13.5 Plt Count 153
--- NOTE | 2016-11-24 06:07 | L&D General Admission ---
General Admit Datetime Report Generated by CPN: 11/24/2016 06:00 INFORMATION Patient Age: 21 (10/12/2016 14:07:QS system process) EDC: 11/27/2016 00:00 (10/22/2016 23:53:Sruthi Thurman RN) : 1 (10/22/2016 23:53:Sruthi Thurman RN) Para: 0 (11/21/2016 00:47:Carol Hernandez RN) Term: 0 (10/22/2016 23:53:Ariane Khan RN) : 0 (10/22/2016 23:53:Ariane Khan RN) Spontaneous Abortions: 0 (10/22/2016 23:53:Ariane Khan RN) Induced Abortions: 0 (10/22/2016 23:53:Ariane Khan RN) Livin (10/22/2016 23:53:Ariane Khan RN) Cesareans: 0 (10/22/2016 23:53:Ariane Khan RN) VBACs: 0 (10/22/2016 23:53:Ariane Khan RN) Ectopic: 0 (10/22/2016 23:53:Ariane Khan RN) Multiple Births: 0 (10/22/2016 23:53:Ariane Khan RN) Baby, Number in Womb: 1 (11/21/2016 00:47:Carol Hernandez RN) CARE Primary Operations Trainer: [facility] (10/22/2016 23:53:Sruthi Thurman RN) Adequate Care: Yes (10/22/2016 23:53:Elsie Santos RN) Height (in): 61 (11/22/2016 15:23:QS system process) ALLERGIES Medication Allergy: No (10/22/2016 23:53:Adriana Pinzon RN) Medication Allergies: No Known Allergies (11/21/2016) (11/21/2016 00:22:QS system process) Latex Allergy: No Latex Allergies (10/22/2016 23:53:Adriana Pinzon RN) Food Allergies: None (10/22/2016 23:53:Adriana Pinzon RN) Environmental Allergies: None (10/22/2016 23:53:Adriana Pinzon RN) COMMUNICATION Primary Language: Yi (10/22/2016 23:53:Adriana Pinzon RN) Medical Tx Preferred Language: Yi (10/22/2016 23:53:Adriana Pinzon RN) Communication Barrier(s): None (10/22/2016 23:53:Adriana Pinzon RN) DEMOGRAPHICS Address: [address] [place] [id number] (10/12/2016 14:07:QS system process) Zipcode: [address] (10/12/2016 14:07:QS system process) Home (10/12/2016 14:07:QS system process) SSN: [id number] (10/12/2016 14:07:QS system process) Next of Kin Name: RICO GRAF (10/12/2016 14:07:QS system process) Next of Kin (10/12/2016 14:07:QS system process) Next of Kin Relationship: SPO (10/12/2016 14:07:QS system process) Date of : 1995 (10/12/2016 14:07:QS system process) Marital Status: (10/12/2016 14:07:QS system process) Sex: Female (10/12/2016 14:07:QS system process) Race: (10/12/2016 14:07:QS system process) Ethnicity: Non- or (10/12/2016 14:07:QS system process) Scientology: Orthodoxy (10/12/2016 14:07:QS system process) DRUG AND ALCOHOL USE Alcohol: No (10/22/2016 23:53:Sruthi Thurman RN) Cigarettes: Never Smoker. [id number] (10/22/2016 23:53:Sruthi Thurman RN) Marijuana: No (10/22/2016 23:53:Sruthi Thurman RN) Cocaine: No (10/22/2016 23:53:Sruthi Thurman RN) Other Illicit Drugs: No (10/22/2016 23:53:Sruthi Thurman RN) Refrigeration Installer: Other (Annotations: Data stored by N on behalf of user) (10/22/2016 23:53:Elsie Santos RN) Feeding Preference: Breast (10/22/2016 23:53:Sruthi Thurman RN) Benefit of Breast Feed Discussed: Yes (10/22/2016 23:53:Dahiana De La Paz RN) Circumcision: N/A (10/22/2016 23:53:Sruthi Thurman RN) Classes Attended: No (10/22/2016 23:53:Sruthi Thurman RN) Tubal Ligation: No (10/22/2016 23:53:Sruthi Thurman RN) Tubal Authorization Signed: N/A (10/22/2016 23:53:Sruthi Thurman RN) Consent: N/A (10/22/2016 23:53:Sruthi Thurman RN) Consent Signed: N/A (10/22/2016 23:53:Sruthi Thurman RN) Pain Management Plans: Epidural (10/22/2016 23:53:Sruthi Thurman RN) Plans for Labor and Delivery: None (10/22/2016 23:53:Sruthi Thurman RN) Support Person: Rico (10/22/2016 23:53:Sruthi Thurman RN) Support Person Relationship: (10/22/2016 23:53:Sruthi Thurman RN) Cultural/Spritual Practice: No (10/22/2016 23:53:Sruthi Thurman RN) Spir/Cult Dietary Needs: No (10/22/2016 23:53:Sruthi Thurman RN) LIVING SITUATION/DISCHARGE PLAN Living Arrangements: Apartment (10/22/2016 23:53:Sruthi Thurman RN) Adequate Access to:: Electric; Heat; Refrigeration; Plumbing/Running water; Phone; Transportation (10/22/2016 23:53:Sruthi Thurman RN) WIC Program: No (10/22/2016 23:53:Sruthi Thurman RN) Discharge Brick Setter Operator Person: Rico (10/22/2016 23:53:Sruthi Thurman RN) Person to Help after Discharge: Rico (10/22/2016 23:53:Rosita Galvez RN) Currently Using Commun Resources: No (10/22/2016 23:53:Sruthi Thurman RN) Outside Agency/Forensics Team Director: N/A (10/22/2016 23:53:Sruthi Thurman RN) Car Seat for Discharge: Yes (10/22/2016 23:53:Sruthi Thurman RN) Adoption Requested: No (10/22/2016 23:53:Sruthi Thurman RN) LABS Blood Type: A Negative (10/22/2016 23:53:Sruthi Thurman RN) Antibody Screen: Negative (10/22/2016 23:53:Sruthi Thurman RN) Rho(G) this : Yes (10/22/2016 23:53:Gely Vega RN) Date Rho(G) Given: 09/08/2016 (10/22/2016 23:53:Ariane Khan RN) Hemoglobin: 10.7 L (11/23/2016 07:12:QS system process) Hematocrit: 30.7 L (11/23/2016 07:12:QS system process) MCV: 88 (11/23/2016 07:12:QS system process) Group Beta Strep: negative (10/22/2016 23:53:Gely Vega RN) Gonorrhea: Negative (10/22/2016 23:53:Gely Vega RN) Chlamydia: Negative (10/22/2016 23:53:Gely Vega RN) RPR/VDRL: Nonreactive (10/22/2016 23:53:Gely Vega RN) HIV Results: Negative (10/22/2016 23:53:Ariane Khan RN) Hepatitis B: Negative (10/22/2016 23:53:Sruthi Thurman RN) Rubella: Immune (10/22/2016 23:53:Sruthi Thurman RN) OB/PREVIOUS HISTORY Current Procedures: Ultrasound; NST (10/22/2016 23:53:Adriana Pinzon RN) History of Previous : No (10/22/2016 23:53:Adriana Pinzon RN) History of Gestational Diabetes: No (10/22/2016 23:53:Adriana Pinzon RN) History of PIH: No (10/22/2016 23:53:Adriana Pinzon RN) History of Incompetent Cervix: No (10/22/2016 23:53:Adriana Pinzon RN) History of Placenta Previa/Abrup: No (10/22/2016 23:53:Adriana Pinzon RN) History of Macrosomia: No (10/22/2016 23:53:Adriana Pinzon RN) History of IUGR: No (10/22/2016 23:53:Adriana Pinzon RN) History of Hemorrhage: No (10/22/2016 23:53:Adriana Pinzon RN) History of Loss/Stillborn: No (10/22/2016 23:53:Adriana Pinzon RN) History of : No (10/22/2016 23:53:Adriana Pinzon RN) History of D (Rh) Sensitization: No (10/22/2016 23:53:Adriana Pinzon RN) History Recurrent Loss/Stillborn: No (10/22/2016 23:53:Adriana Pinzon RN) History Depression/PP Depression: No (10/22/2016 23:53:Sruhti Thurman RN) History of Uterine Anomaly/ELZA: No (10/22/2016 23:53:Adriana Pinzon RN) History of Infertility: No (10/22/2016 23:53:Adriana Pinzon RN) History of ART Treatment: No (10/22/2016 23:53:Sruthi Thurman RN) History of ELZA: No (10/22/2016 23:53:Adriana Pinzon RN) Comments Obstetrical History: G1: current (10/22/2016 23:53:Adriana Pinzon RN) MEDICAL HISTORY Med Hx Diabetes: No (10/22/2016 23:53:Sruthi hTurman RN) Med Hx Hypertension: No (10/22/2016 23:53:Sruthi Thurman RN) Med Hx Heart Disease: No (10/22/2016 23:53:Sruthi Tuhrman RN) Med Hx Autoimmune Disorder: No (10/22/2016 23:53:Sruthi Thurman RN) Med Hx Kidney Disease/UTI: No (10/22/2016 23:53:Sruthi Thurman RN) Med Hx Neurologic/Epilepsy: No (10/22/2016 23:53:Sruthi Thurman RN) Med Hx Psychiatric Disorders: No (10/22/2016 23:53:Sruthi Thurman RN) Med Hx Hepatitis/Liver Disease: No (10/22/2016 23:53:Sruthi Thurman RN) Med Hx Varicosities/Phlebitis: No (10/22/2016 23:53:Sruthi Thurman RN) Med Hx Thyroid Dysfunction: No (10/22/2016 23:53:Sruthi Thurman RN) Med Hx Trauma/Violence: No (10/22/2016 23:53:Sruthi Thurman RN) Med Hx Blood Transfusion: No (10/22/2016 23:53:Sruthi Thurman RN) Med Hx Pulmonary (Asthma,TB): No (10/22/2016 23:53:Sruthi Thurman RN) Med Hx Breast: No (10/22/2016 23:53:Sruthi Thurman RN) Med Hx PUBLIC RELATIONS STUDIES DIRECTOR Surgery: No (10/22/2016 23:53:Sruthi Thurman RN) Med Hx Hospitalization/Surgery: No (10/22/2016 23:53:Sruthi Thurman RN) Med Hx Anesthetic Complications: Unknown (10/22/2016 23:53:Sruthi Thurman RN) Med Hx Abnormal Pap Smear: No (10/22/2016 23:53:Sruthi Thurman RN) Other Medical Diseases: No (10/22/2016 23:53:Sruthi Thurman RN) Med Hx Significant Family Hx: No (10/22/2016 23:53:Sruthi Thurman RN) INFECTIOUS HISTORY Inf Hx Gonorrhea: No (10/22/2016 23:53:Sruthi Thurman RN) Inf Hx Chlamydia: No (10/22/2016 23:53:Sruthi Thurman RN) Inf Hx Syphilis: No (10/22/2016 23:53:Sruthi Thurman RN) Inf Hx HIV/AIDS: No (10/22/2016 23:53:Sruthi Thurman RN) Inf Hx Human Papilloma Virus: No (10/22/2016 23:53:Sruthi Thurman RN) Inf Hx Pt/Partner Genital Herpes: No (10/22/2016 23:53:Sruthi Thurman RN) Inf Hx Tuberculosis/Exposure: No (10/22/2016 23:53:Sruthi Thurman RN) Inf Hx Hepatitis B,C: No (10/22/2016 23:53:Sruthi Thurman RN) Inf Hx Rash or Viral Illness: No (10/22/2016 23:53:Sruthi Thurman RN) GENETIC HISTORY Gen Hx Age >=35 at SHABANA: No (10/22/2016 23:53:Adriana Pinzon RN) Gen Hx Thalassemia: No (10/22/2016 23:53:Adriana Pinzon RN) Gen Hx Congenital Heart Defect: No (10/22/2016 23:53:Adriana Pinzon RN) Gen Hx Neural Tube Defect: No (10/22/2016 23:53:Adriana Pinzon RN) Gen Hx Down's Syndrome: No (10/22/2016 23:53:Adriana Pinzon RN) Gen Hx Chidi-Sachs: No (10/22/2016 23:53:Adriana Pinzon RN) Gen Hx Bernardino: No (10/22/2016 23:53:Adriana Pinzon RN) Gen Hx Familial Dysautonomia: No (10/22/2016 23:53:Adriana Pinzon RN) Gen Hx Sickle Cell Disease/Trait: No (10/22/2016 23:53:Adriana Pinzon RN) Gen Hx Hemophilia/Blood Disorder: No (10/22/2016 23:53:Adriana Pinzon RN) Gen Hx Muscular Dystrophy: No (10/22/2016 23:53:Adriana Pinzon RN) Gen Hx Cystic Fibrosis: No (10/22/2016 23:53:Adriana Pinzon RN) Gen Hx Huntingtons Chorea: No (10/22/2016 23:53:Adriana Pinzon RN) Gen Hx Mental Retardation/Autism: Yes (10/22/2016 23:53:Sruthi Thurman RN) Gen Hx Tested for Fragile X: No (10/22/2016 23:53:Adriana Pinzon RN) Gen Hx Other Inher/Chromosomal: No (10/22/2016 23:53:Adriana Pinzon RN) Gen Hx Maternal Metabolic DO: No (10/22/2016 23:53:Adriana Pinzon RN) Gen Hx Pt Father or FOB Defect: No (10/22/2016 23:53:Adriana Pinzon RN) Gen Hx Other Genetic History: No (10/22/2016 23:53:Adriana Pinzon RN) Gen Hx Drugs/Meds since LMP: Yes (10/22/2016 23:53:Carol Hernandez RN) Gen Hx Medications: PNV (10/22/2016 23:53:Carol Hernandez RN)
--- NOTE | 2016-11-24 06:07 | L&D Current Admission ---
Current Admit Datetime Report Generated by CPN: 11/24/2016 06:00 ADMISSION INFORMATION Current Admit Date/Time: 11/22/2016 05:11 (11/22/2016 05:07:Robyn Zavala) Reason for Admission: Onset of Labor (11/22/2016 05:07:Robyn Zavala) Chief Complaint: Contractions (11/22/2016 05:07:Robyn Zavala) EGA per Dates: 39.2 (11/22/2016 05:07:QS system process) Method of Arrival: Wheelchair (11/22/2016 05:07:Robyn Zavala) Admitted From: Home (11/22/2016 05:07:Robyn Zavala) Records Available: Yes (11/22/2016 05:07:Robyn Zavala) General Admission Information: Reviewed (11/22/2016 05:07:Robyn Zavala) General Admission Reviewed By: Alma Zavala Rn (11/22/2016 05:07:Robyn Zavala) BELONGINGS/ADVANCED DIRECTIVES Other Belongings: see consent sheet (11/22/2016 05:07:Robyn Zavala) Disposition of Belongings: Kept with Patient (11/22/2016 05:07:Robyn Zavala) Advance Direct for Healthcare: No, and Wants No Information (11/22/2016 05:07:Robyn Zavala) Durable Power of Radiologic Technologist Mammogram: No (11/22/2016 05:07:Robyn Zavala) Living Will: No (11/22/2016 05:07:Robyn Zavala) Organ Donor: No (11/22/2016 05:07:Robyn Zavala) Pt Rights Information Given: Yes (11/22/2016 05:07:Robyn Zavala) Pt Understands Pt Rights: Yes (11/22/2016 05:07:Robyn Zavala) Patient Rights Comments: patient access (11/22/2016 05:07:Robyn Zavala) LEARNING ASSESSMENT Knowledge Level: Understands L_D Process (11/22/2016 05:07:Robyn Zavala) Barriers to Learning: None (11/22/2016 05:07:Robyn Zavala) Learning Readiness: Motivated (11/22/2016 05:07:Robyn Zavala) Learns Best By: 1 to 1 Instruction (11/22/2016 05:07:Robyn Zavala) Learning Needs: Labor and Delivery Process (11/22/2016 05:07:Robyn Zavala) DOMESTIC VIOLANCE SCREENING Dom Viol Threatened/Hurt: No (11/22/2016 05:07:Robyn Zavala) Hx of Abuse/Neglect past 2yrs: No (11/22/2016 05:07:Robyn Zavala) Feel Unsafe Going Home: No (11/22/2016 05:07:Robyn Zavala) Addt'l Observ Indicating Abuse: No (11/22/2016 05:07:Robyn Zavala) Reason Unable to Complete Screen: N/A, Screen Completed (11/22/2016 05:07:Robyn Zavala) Considered Personal Harm/Suicide: No (11/22/2016 05:07:Robyn Zavala) NUTRITIONAL/FUNCTIONAL SCREENING Problem with Appetite >5 Days: No (11/22/2016 05:07:Robyn Zavala) Chew/Swallow Difficulties: No (11/22/2016 05:07:Robyn Zavala) Inappropriate Wt Gain/Loss: No (11/22/2016 05:07:Robyn Zavala) Presence Skin Breakdown/Ulcer: No (11/22/2016 05:07:Robyn Zavala) Special Diet: No (11/22/2016 05:07:Robyn Zavala) Pt Requests Back Tender Paper Machine Visit: No (11/22/2016 05:07:Robyn Zavala) Hx of Any of the Following?: N/A (11/22/2016 05:07:Robyn Zavala) New Diagnosis of: N/A (11/22/2016 05:07:Robyn Zavala) Requires Assist w/Ambulation: No (11/22/2016 05:07:Robyn Zavala) Uses Assist Device to Ambulate: No (11/22/2016 05:07:Robyn Zavala) Pt Requires Help w/ADL's: No (11/22/2016 05:07:Robyn Zavala)
[2016-11-24] MEDS: IBUPROFEN 800 MG TABLET PO SCH (06:22)
[2016-11-24 09:09] VITALS: BP 116/67
--- NOTE | 2016-11-24 10:00 | PDOC DISCHARGE SUMMARY ---
Discharge Summary-OB Discharge Date: 11/24/16 - Final Diagnosis (1) Acute blood loss anemia Is this a current diagnosis for this admission?: Yes (2) Delivery normal Is this a current diagnosis for this admission?: Yes - Discharge Medication Home Medications: [id number]/Iron Fumarate/FA/Dss [ 19 Tablet] 1 tab PO DAILY 10/22/16 Docusate Sodium [Colace 100 mg Capsule] 100 mg PO BID #60 capsule 11/24/16 Ferrous Sulfate [Feosol 325 mg Tablet] 325 mg PO BID #60 tablet 11/24/16 Ibuprofen [Motrin 800 mg Tablet] 800 mg PO Q8 #60 tablet 11/24/16 Gestational Age: 39.2 Reason(s) for Admission: Onset of Labor Procedures: NST Intrapartum Procedure(s): Spontaneous Vaginal Delivery - Data Baby 1 Male at 1 minute: 9 at 5 minutes: 9 Weight: 3040 kg Home with Mother: Yes Complications: No - Diagnosis Test Laboratory: Temp Pulse Resp BP Pulse Ox 97.6 F 69 17 116/67 100 11/24/16 09:07 11/24/16 09:07 11/24/16 09:07 11/24/16 09:07 11/24/16 09:07 11/22/16 11/22/16 11/23/16 03:00 05:26 07:12 RBC 4.25 3.51 L Hgb 12.7 10.7 L Hct 36.6 30.7 L Urine Opiates Screen NEGATIVE - Discharge information/Instructions Discharge Activity: Activity As Tolerated, Pelvic Rest, No tub bath Discharge Diet: Regular Disposition: HOME, SELF-CARE Follow up with: [facility] in: 4, Weeks
[2016-11-24] MEDS: FERROUS SULFATE 325 MG TABLET PO SCH (10:44)
[2016-11-24] MEDS: DOCUSATE SODIUM 100 MG CAPSULE PO SCH (10:44)
[2016-11-24] MEDS: PRENATAL VITAMIN W-O CA NO5/FE FUMARATE/FA CAPSULE PO SCH (10:44)
[2016-11-24] MEDS: SENNOSIDES/DOCUSATE 8.6-50 MG 1 EACH TABLET PO SCH (10:44)
--- NOTE | 2016-11-25 06:08 | L&D General Admission ---
General Admit Datetime Report Generated by CPN: 11/25/2016 06:00 INFORMATION Patient Age: 21 (10/12/2016 14:07:QS system process) EDC: 11/27/2016 00:00 (10/22/2016 23:53:Sruthi Thurman RN) : 1 (10/22/2016 23:53:Sruthi Thurman RN) Para: 0 (11/21/2016 00:47:Carol Hernandez RN) Term: 0 (10/22/2016 23:53:Ariane Khan RN) : 0 (10/22/2016 23:53:Ariane Khan RN) Spontaneous Abortions: 0 (10/22/2016 23:53:Ariane Khan RN) Induced Abortions: 0 (10/22/2016 23:53:Ariane Khan RN) Livin (10/22/2016 23:53:Ariane Khan RN) Cesareans: 0 (10/22/2016 23:53:Ariane Khan RN) VBACs: 0 (10/22/2016 23:53:Ariane Khan RN) Ectopic: 0 (10/22/2016 23:53:Ariane Khan RN) Multiple Births: 0 (10/22/2016 23:53:Ariane Khan RN) Baby, Number in Womb: 1 (11/21/2016 00:47:Carol Hernandez RN) CARE Primary Textile Machine Mechanic: [facility] (10/22/2016 23:53:Sruthi Thurman RN) Adequate Care: Yes (10/22/2016 23:53:Elsie Santos RN) Height (in): 61 (11/24/2016 10:01:QS system process) ALLERGIES Medication Allergy: No (10/22/2016 23:53:Adriana Pinzon RN) Medication Allergies: No Known Allergies (11/21/2016) (11/21/2016 00:22:QS system process) Latex Allergy: No Latex Allergies (10/22/2016 23:53:Adriana Pinzon RN) Food Allergies: None (10/22/2016 23:53:Adriana Pinzon RN) Environmental Allergies: None (10/22/2016 23:53:Adriana Pinzon RN) COMMUNICATION Primary Language: Arabic (10/22/2016 23:53:Adriana Pinzon RN) Medical Tx Preferred Language: Arabic (10/22/2016 23:53:Adriana Pinzon RN) Communication Barrier(s): None (10/22/2016 23:53:Adriana Pinzon RN) DEMOGRAPHICS Address: [address] [place] [id number] (10/12/2016 14:07:QS system process) Zipcode: [address] (10/12/2016 14:07:QS system process) Home (10/12/2016 14:07:QS system process) SSN: [id number] (10/12/2016 14:07:QS system process) Next of Kin Name: RICO GRAF (10/12/2016 14:07:QS system process) Next of Kin (10/12/2016 14:07:QS system process) Next of Kin Relationship: SPO (10/12/2016 14:07:QS system process) Date of : 1995 (10/12/2016 14:07:QS system process) Marital Status: (10/12/2016 14:07:QS system process) Sex: Female (10/12/2016 14:07:QS system process) Race: (10/12/2016 14:07:QS system process) Ethnicity: Non- or (10/12/2016 14:07:QS system process) Mosque: Adventism (10/12/2016 14:07:QS system process) DRUG AND ALCOHOL USE Alcohol: No (10/22/2016 23:53:Sruthi Thurman RN) Cigarettes: Never Smoker. [id number] (10/22/2016 23:53:Sruthi Thurman RN) Marijuana: No (10/22/2016 23:53:Sruthi Thurman RN) Cocaine: No (10/22/2016 23:53:Sruthi Thurman RN) Other Illicit Drugs: No (10/22/2016 23:53:Sruthi Thurman RN) Office Clerk: Other (Annotations: Data stored by N on behalf of user) (10/22/2016 23:53:Elsie Santos RN) Feeding Preference: Breast (10/22/2016 23:53:Sruthi Thurman RN) Benefit of Breast Feed Discussed: Yes (10/22/2016 23:53:Dahiana De La Paz RN) Circumcision: N/A (10/22/2016 23:53:Sruthi Thurman RN) Classes Attended: No (10/22/2016 23:53:Sruthi Thurman RN) Tubal Ligation: No (10/22/2016 23:53:Sruthi Thurman RN) Tubal Authorization Signed: N/A (10/22/2016 23:53:Sruthi Thurman RN) Consent: N/A (10/22/2016 23:53:Sruthi Thurman RN) Consent Signed: N/A (10/22/2016 23:53:Sruthi Thurman RN) Pain Management Plans: Epidural (10/22/2016 23:53:Sruthi Thurman RN) Plans for Labor and Delivery: None (10/22/2016 23:53:Sruthi Thurman RN) Support Person: Rico (10/22/2016 23:53:Sruthi Thurman RN) Support Person Relationship: (10/22/2016 23:53:Sruthi Thurman RN) Cultural/Spritual Practice: No (10/22/2016 23:53:Sruthi Thurman RN) Spir/Cult Dietary Needs: No (10/22/2016 23:53:Sruthi Thurman RN) LIVING SITUATION/DISCHARGE PLAN Living Arrangements: Apartment (10/22/2016 23:53:Sruthi Thurman RN) Adequate Access to:: Electric; Heat; Refrigeration; Plumbing/Running water; Phone; Transportation (10/22/2016 23:53:Sruthi Thurman RN) WIC Program: No (10/22/2016 23:53:Sruthi Thurman RN) Discharge Back Stayer Person: Rico (10/22/2016 23:53:Sruthi Thurman RN) Person to Help after Discharge: Rico (10/22/2016 23:53:Rosita Galvez RN) Currently Using Commun Resources: No (10/22/2016 23:53:Sruthi Thurman RN) Outside Agency/Bread Wrapping Machine Feeder: N/A (10/22/2016 23:53:Sruthi Thurman RN) Car Seat for Discharge: Yes (10/22/2016 23:53:Sruthi Thurman RN) Adoption Requested: No (10/22/2016 23:53:Sruthi Thurman RN) LABS Blood Type: A Negative (10/22/2016 23:53:Sruthi Thurman RN) Antibody Screen: Negative (10/22/2016 23:53:Sruthi Thurman RN) Rho(G) this : Yes (10/22/2016 23:53:Gely Vega RN) Date Rho(G) Given: 09/08/2016 (10/22/2016 23:53:Ariane Khan RN) Hemoglobin: 10.7 L (11/23/2016 07:12:QS system process) Hematocrit: 30.7 L (11/23/2016 07:12:QS system process) MCV: 88 (11/23/2016 07:12:QS system process) Group Beta Strep: negative (10/22/2016 23:53:Gely Vega RN) Gonorrhea: Negative (10/22/2016 23:53:Gely Vega RN) Chlamydia: Negative (10/22/2016 23:53:Gely Vega RN) RPR/VDRL: Nonreactive (10/22/2016 23:53:Gely Vega RN) HIV Results: Negative (10/22/2016 23:53:Ariane Khan RN) Hepatitis B: Negative (10/22/2016 23:53:Sruthi Thurman RN) Rubella: Immune (10/22/2016 23:53:Sruthi Thurman RN) OB/PREVIOUS HISTORY Current Procedures: Ultrasound; NST (10/22/2016 23:53:Adriana Pinzon RN) History of Previous : No (10/22/2016 23:53:Adriana Pinzon RN) History of Gestational Diabetes: No (10/22/2016 23:53:Adriana Pinzon RN) History of PIH: No (10/22/2016 23:53:Adriana Pinzon RN) History of Incompetent Cervix: No (10/22/2016 23:53:Adriana Pinzon RN) History of Placenta Previa/Abrup: No (10/22/2016 23:53:Adriana Pinzon RN) History of Macrosomia: No (10/22/2016 23:53:Adriana Pinzon RN) History of IUGR: No (10/22/2016 23:53:Adriana Pinzon RN) History of Hemorrhage: No (10/22/2016 23:53:Adriana Pinzon RN) History of Loss/Stillborn: No (10/22/2016 23:53:Adriana Pinzon RN) History of : No (10/22/2016 23:53:Adriana Pinzon RN) History of D (Rh) Sensitization: No (10/22/2016 23:53:Adriana Pinzon RN) History Recurrent Loss/Stillborn: No (10/22/2016 23:53:Adriana Pinzon RN) History Depression/PP Depression: No (10/22/2016 23:53:Sruthi Thurman RN) History of Uterine Anomaly/ELZA: No (10/22/2016 23:53:Adriana Pinzon RN) History of Infertility: No (10/22/2016 23:53:Adriana Pinzon RN) History of ART Treatment: No (10/22/2016 23:53:Sruthi Thurman RN) History of ELZA: No (10/22/2016 23:53:Adriana Pinzon RN) Comments Obstetrical History: G1: current (10/22/2016 23:53:Adriana Pinzon RN) MEDICAL HISTORY Med Hx Diabetes: No (10/22/2016 23:53:Sruthi Thurman RN) Med Hx Hypertension: No (10/22/2016 23:53:Sruthi Thurman RN) Med Hx Heart Disease: No (10/22/2016 23:53:Sruthi Thurman RN) Med Hx Autoimmune Disorder: No (10/22/2016 23:53:Sruthi Thurman RN) Med Hx Kidney Disease/UTI: No (10/22/2016 23:53:Sruthi Thurman RN) Med Hx Neurologic/Epilepsy: No (10/22/2016 23:53:Sruthi Thurman RN) Med Hx Psychiatric Disorders: No (10/22/2016 23:53:Sruthi Thurman RN) Med Hx Hepatitis/Liver Disease: No (10/22/2016 23:53:Sruthi Thurman RN) Med Hx Varicosities/Phlebitis: No (10/22/2016 23:53:Sruthi Thurman RN) Med Hx Thyroid Dysfunction: No (10/22/2016 23:53:Sruthi Thurman RN) Med Hx Trauma/Violence: No (10/22/2016 23:53:Sruthi Thurman RN) Med Hx Blood Transfusion: No (10/22/2016 23:53:Sruthi Thurman RN) Med Hx Pulmonary (Asthma,TB): No (10/22/2016 23:53:Sruthi Thurman RN) Med Hx Breast: No (10/22/2016 23:53:Sruthi Thurman RN) Med Hx PHOTOGRAPHIC EDITOR Surgery: No (10/22/2016 23:53:Sruthi Thurman RN) Med Hx Hospitalization/Surgery: No (10/22/2016 23:53:Sruthi Thurman RN) Med Hx Anesthetic Complications: Unknown (10/22/2016 23:53:Sruthi Thurman RN) Med Hx Abnormal Pap Smear: No (10/22/2016 23:53:Sruthi Thurman RN) Other Medical Diseases: No (10/22/2016 23:53:Sruthi Thurman RN) Med Hx Significant Family Hx: No (10/22/2016 23:53:Sruthi Thurman RN) INFECTIOUS HISTORY Inf Hx Gonorrhea: No (10/22/2016 23:53:Sruthi Thurman RN) Inf Hx Chlamydia: No (10/22/2016 23:53:Sruthi Thurman RN) Inf Hx Syphilis: No (10/22/2016 23:53:Sruthi Thurman RN) Inf Hx HIV/AIDS: No (10/22/2016 23:53:Sruthi Thurman RN) Inf Hx Human Papilloma Virus: No (10/22/2016 23:53:Sruthi Thurman RN) Inf Hx Pt/Partner Genital Herpes: No (10/22/2016 23:53:Sruthi Thurman RN) Inf Hx Tuberculosis/Exposure: No (10/22/2016 23:53:Sruthi Thurman RN) Inf Hx Hepatitis B,C: No (10/22/2016 23:53:Sruthi Thurman RN) Inf Hx Rash or Viral Illness: No (10/22/2016 23:53:Sruthi Thurman RN) GENETIC HISTORY Gen Hx Age >=35 at [facility]: No (10/22/2016 23:53:Adriana Pinzon RN) Gen Hx Thalassemia: No (10/22/2016 23:53:Adriana Pinzon RN) Gen Hx Congenital Heart Defect: No (10/22/2016 23:53:Adriana Pinzon RN) Gen Hx Neural Tube Defect: No (10/22/2016 23:53:Adriana Pinzon RN) Gen Hx Down's Syndrome: No (10/22/2016 23:53:Adriana Pinzon RN) Gen Hx Chidi-Sachs: No (10/22/2016 23:53:Adriana Pinzon RN) Gen Hx Bernardino: No (10/22/2016 23:53:Adriana Pinzon RN) Gen Hx Familial Dysautonomia: No (10/22/2016 23:53:Adriana Pinzon RN) Gen Hx Sickle Cell Disease/Trait: No (10/22/2016 23:53:Adriana Pinzon RN) Gen Hx Hemophilia/Blood Disorder: No (10/22/2016 23:53:Adriana Pinzon RN) Gen Hx Muscular Dystrophy: No (10/22/2016 23:53:Adriana Pinzon RN) Gen Hx Cystic Fibrosis: No (10/22/2016 23:53:Adriana Pinzon RN) Gen Hx Huntingtons Chorea: No (10/22/2016 23:53:Adriana Pinzon RN) Gen Hx Mental Retardation/Autism: Yes (10/22/2016 23:53:Sruthi Thurman RN) Gen Hx Tested for Fragile X: No (10/22/2016 23:53:Adriana Pinzon RN) Gen Hx Other Inher/Chromosomal: No (10/22/2016 23:53:Adriana Pinzon RN) Gen Hx Maternal Metabolic DO: No (10/22/2016 23:53:Adriana Pinzon RN) Gen Hx Pt Father or FOB Defect: No (10/22/2016 23:53:Adriana Pinzon RN) Gen Hx Other Genetic History: No (10/22/2016 23:53:Adriana Pinzon RN) Gen Hx Drugs/Meds since LMP: Yes (10/22/2016 23:53:Carol Hernandez RN) Gen Hx Medications: PNV (10/22/2016 23:53:Carol Hernandez RN)
--- NOTE | 2016-11-26 06:08 | L&D General Admission ---
General Admit Datetime Report Generated by CPN: 11/26/2016 06:00 INFORMATION Patient Age: 21 (10/12/2016 14:07:QS system process) EDC: 11/27/2016 00:00 (10/22/2016 23:53:Sruthi Thurman RN) : 1 (10/22/2016 23:53:Sruthi Thurman RN) Para: 0 (11/21/2016 00:47:Carol Hernandez RN) Term: 0 (10/22/2016 23:53:Ariane Khan RN) : 0 (10/22/2016 23:53:Ariane Khan RN) Spontaneous Abortions: 0 (10/22/2016 23:53:Ariane Khan RN) Induced Abortions: 0 (10/22/2016 23:53:Ariane Khan RN) Livin (10/22/2016 23:53:Ariane Khan RN) Cesareans: 0 (10/22/2016 23:53:Ariane Khan RN) VBACs: 0 (10/22/2016 23:53:Ariane Khan RN) Ectopic: 0 (10/22/2016 23:53:Ariane Khan RN) Multiple Births: 0 (10/22/2016 23:53:Ariane Khan RN) Baby, Number in Womb: 1 (11/21/2016 00:47:Carol Hernandez RN) CARE Primary Rn Circulating: [facility] (10/22/2016 23:53:Sruthi Thurman RN) Adequate Care: Yes (10/22/2016 23:53:Elsie Santos RN) Height (in): 61 (11/24/2016 10:01:QS system process) ALLERGIES Medication Allergy: No (10/22/2016 23:53:Adriana Pinzon RN) Medication Allergies: No Known Allergies (11/21/2016) (11/21/2016 00:22:QS system process) Latex Allergy: No Latex Allergies (10/22/2016 23:53:Adriana Pinzon RN) Food Allergies: None (10/22/2016 23:53:Adriana Pinzon RN) Environmental Allergies: None (10/22/2016 23:53:Adriana Pinzon RN) COMMUNICATION Primary Language: Chinese (10/22/2016 23:53:Adriana Pinzon RN) Medical Tx Preferred Language: Chinese (10/22/2016 23:53:Adriana Pinzon RN) Communication Barrier(s): None (10/22/2016 23:53:Adriana Pinzon RN) DEMOGRAPHICS Address: [address] [place] [id number] (10/12/2016 14:07:QS system process) Zipcode: [address] (10/12/2016 14:07:QS system process) Home (10/12/2016 14:07:QS system process) SSN: [id number] (10/12/2016 14:07:QS system process) Next of Kin Name: RICO GRAF (10/12/2016 14:07:QS system process) Next of Kin (10/12/2016 14:07:QS system process) Next of Kin Relationship: SPO (10/12/2016 14:07:QS system process) Date of : 1995 (10/12/2016 14:07:QS system process) Marital Status: (10/12/2016 14:07:QS system process) Sex: Female (10/12/2016 14:07:QS system process) Race: (10/12/2016 14:07:QS system process) Ethnicity: Non- or (10/12/2016 14:07:QS system process) Pentecostalism: Anglican (10/12/2016 14:07:QS system process) DRUG AND ALCOHOL USE Alcohol: No (10/22/2016 23:53:Sruthi Thurman RN) Cigarettes: Never Smoker. [id number] (10/22/2016 23:53:Sruthi Thurman RN) Marijuana: No (10/22/2016 23:53:Sruthi Thurman RN) Cocaine: No (10/22/2016 23:53:Sruthi Thurman RN) Other Illicit Drugs: No (10/22/2016 23:53:Sruthi Thurman RN) Link Fabric Machine Operator: Other (Annotations: Data stored by N on behalf of user) (10/22/2016 23:53:Elsie Santos RN) Feeding Preference: Breast (10/22/2016 23:53:Sruthi Thurman RN) Benefit of Breast Feed Discussed: Yes (10/22/2016 23:53:Dahiana De La Paz RN) Circumcision: N/A (10/22/2016 23:53:Sruthi Thurman RN) Classes Attended: No (10/22/2016 23:53:Sruthi Thurman RN) Tubal Ligation: No (10/22/2016 23:53:Sruthi Thurman RN) Tubal Authorization Signed: N/A (10/22/2016 23:53:Sruthi Thurman RN) Consent: N/A (10/22/2016 23:53:Sruthi Thurman RN) Consent Signed: N/A (10/22/2016 23:53:Sruthi Thurman RN) Pain Management Plans: Epidural (10/22/2016 23:53:Sruthi Thurman RN) Plans for Labor and Delivery: None (10/22/2016 23:53:Sruthi Thurman RN) Support Person: Rico (10/22/2016 23:53:Sruthi Thurman RN) Support Person Relationship: (10/22/2016 23:53:Sruthi Thruman RN) Cultural/Spritual Practice: No (10/22/2016 23:53:Sruthi Thurman RN) Spir/Cult Dietary Needs: No (10/22/2016 23:53:Sruthi Thurman RN) LIVING SITUATION/DISCHARGE PLAN Living Arrangements: Apartment (10/22/2016 23:53:Sruthi Thurman RN) Adequate Access to:: Electric; Heat; Refrigeration; Plumbing/Running water; Phone; Transportation (10/22/2016 23:53:Sruthi Thurman RN) WIC Program: No (10/22/2016 23:53:Sruthi Thurman RN) Discharge Doughnut Dough Mixer Person: Rico (10/22/2016 23:53:Sruthi Thurman RN) Person to Help after Discharge: Rico (10/22/2016 23:53:Rosita Galvez RN) Currently Using Commun Resources: No (10/22/2016 23:53:Sruthi Thurman RN) Outside Agency/Fire Systems Inspector: N/A (10/22/2016 23:53:Sruthi Thurman RN) Car Seat for Discharge: Yes (10/22/2016 23:53:Sruthi Thurman RN) Adoption Requested: No (10/22/2016 23:53:Sruthi Thurman RN) LABS Blood Type: A Negative (10/22/2016 23:53:Sruthi Thurman RN) Antibody Screen: Negative (10/22/2016 23:53:Sruthi Thurman RN) Rho(G) this : Yes (10/22/2016 23:53:Gely Vega RN) Date Rho(G) Given: 09/08/2016 (10/22/2016 23:53:Ariane Khan RN) Hemoglobin: 10.7 L (11/23/2016 07:12:QS system process) Hematocrit: 30.7 L (11/23/2016 07:12:QS system process) MCV: 88 (11/23/2016 07:12:QS system process) Group Beta Strep: negative (10/22/2016 23:53:Geyl Vega RN) Gonorrhea: Negative (10/22/2016 23:53:Gely Vega RN) Chlamydia: Negative (10/22/2016 23:53:Gely Vega RN) RPR/VDRL: Nonreactive (10/22/2016 23:53:Gely Vega RN) HIV Results: Negative (10/22/2016 23:53:Ariane Khan RN) Hepatitis B: Negative (10/22/2016 23:53:Sruthi Thurman RN) Rubella: Immune (10/22/2016 23:53:Sruthi Thurman RN) OB/PREVIOUS HISTORY Current Procedures: Ultrasound; NST (10/22/2016 23:53:Adriana Pinzon RN) History of Previous : No (10/22/2016 23:53:Adriana Pinzon RN) History of Gestational Diabetes: No (10/22/2016 23:53:Adriana Pinzon RN) History of PIH: No (10/22/2016 23:53:Adriana Pinzon RN) History of Incompetent Cervix: No (10/22/2016 23:53:Adriana Pinzon RN) History of Placenta Previa/Abrup: No (10/22/2016 23:53:Adriana Pinzon RN) History of Macrosomia: No (10/22/2016 23:53:Adriana Pinzon RN) History of IUGR: No (10/22/2016 23:53:Adriana Pinzon RN) History of Hemorrhage: No (10/22/2016 23:53:Adriana Pinzon RN) History of Loss/Stillborn: No (10/22/2016 23:53:Adriana Pinzon RN) History of : No (10/22/2016 23:53:Adriana Pinzon RN) History of D (Rh) Sensitization: No (10/22/2016 23:53:Adriana Pinzon RN) History Recurrent Loss/Stillborn: No (10/22/2016 23:53:Adriana Pinzon RN) History Depression/PP Depression: No (10/22/2016 23:53:Sruthi Thurman RN) History of Uterine Anomaly/ELZA: No (10/22/2016 23:53:Adriana Pinzon RN) History of Infertility: No (10/22/2016 23:53:Adriana Pinzon RN) History of ART Treatment: No (10/22/2016 23:53:Sruthi Thurman RN) History of ELZA: No (10/22/2016 23:53:Adriana Pinzon RN) Comments Obstetrical History: G1: current (10/22/2016 23:53:Adriana Pinzon RN) MEDICAL HISTORY Med Hx Diabetes: No (10/22/2016 23:53:Sruthi Thurman RN) Med Hx Hypertension: No (10/22/2016 23:53:Sruthi Thurman RN) Med Hx Heart Disease: No (10/22/2016 23:53:Sruthi Thurman RN) Med Hx Autoimmune Disorder: No (10/22/2016 23:53:Sruthi Thurman RN) Med Hx Kidney Disease/UTI: No (10/22/2016 23:53:Sruthi Thurman RN) Med Hx Neurologic/Epilepsy: No (10/22/2016 23:53:Sruthi Thurman RN) Med Hx Psychiatric Disorders: No (10/22/2016 23:53:Sruthi Thurman RN) Med Hx Hepatitis/Liver Disease: No (10/22/2016 23:53:Sruthi Thurman RN) Med Hx Varicosities/Phlebitis: No (10/22/2016 23:53:Sruthi Thurman RN) Med Hx Thyroid Dysfunction: No (10/22/2016 23:53:Sruthi Thurman RN) Med Hx Trauma/Violence: No (10/22/2016 23:53:Sruthi Thurman RN) Med Hx Blood Transfusion: No (10/22/2016 23:53:Sruthi Thurman RN) Med Hx Pulmonary (Asthma,TB): No (10/22/2016 23:53:Sruthi Thurman RN) Med Hx Breast: No (10/22/2016 23:53:Sruthi Thurman RN) Med Hx FIBERGLASS BOAT ASSEMBLY SUPERVISOR Surgery: No (10/22/2016 23:53:Sruthi Thurman RN) Med Hx Hospitalization/Surgery: No (10/22/2016 23:53:Sruthi Thurman RN) Med Hx Anesthetic Complications: Unknown (10/22/2016 23:53:Sruthi Thurman RN) Med Hx Abnormal Pap Smear: No (10/22/2016 23:53:Sruthi Thurman RN) Other Medical Diseases: No (10/22/2016 23:53:Sruthi Thurman RN) Med Hx Significant Family Hx: No (10/22/2016 23:53:Sruthi Thurman RN) INFECTIOUS HISTORY Inf Hx Gonorrhea: No (10/22/2016 23:53:Sruthi Thurman RN) Inf Hx Chlamydia: No (10/22/2016 23:53:Sruthi Thurman RN) Inf Hx Syphilis: No (10/22/2016 23:53:Sruthi Thurman RN) Inf Hx HIV/AIDS: No (10/22/2016 23:53:Sruthi Thurman RN) Inf Hx Human Papilloma Virus: No (10/22/2016 23:53:Sruthi Thurman RN) Inf Hx Pt/Partner Genital Herpes: No (10/22/2016 23:53:Sruthi Thurman RN) Inf Hx Tuberculosis/Exposure: No (10/22/2016 23:53:Sruthi Thurman RN) Inf Hx Hepatitis B,C: No (10/22/2016 23:53:Sruthi Thurman RN) Inf Hx Rash or Viral Illness: No (10/22/2016 23:53:Sruthi Thurman RN) GENETIC HISTORY Gen Hx Age >=35 at [facility]: No (10/22/2016 23:53:Adriana Pinzon RN) Gen Hx Thalassemia: No (10/22/2016 23:53:Adriana Pinzon RN) Gen Hx Congenital Heart Defect: No (10/22/2016 23:53:Adriana Pinzon RN) Gen Hx Neural Tube Defect: No (10/22/2016 23:53:Adriana Pinzon RN) Gen Hx Down's Syndrome: No (10/22/2016 23:53:Adriana Pinzon RN) Gen Hx Chidi-Sachs: No (10/22/2016 23:53:Adriana Pinzon RN) Gen Hx Bernardino: No (10/22/2016 23:53:Adriana Pinzon RN) Gen Hx Familial Dysautonomia: No (10/22/2016 23:53:Adriana Pinzon RN) Gen Hx Sickle Cell Disease/Trait: No (10/22/2016 23:53:Adriana Pinzon RN) Gen Hx Hemophilia/Blood Disorder: No (10/22/2016 23:53:Adriana Pinzon RN) Gen Hx Muscular Dystrophy: No (10/22/2016 23:53:Adriana Pinzon RN) Gen Hx Cystic Fibrosis: No (10/22/2016 23:53:Adriana Pinzon RN) Gen Hx Huntingtons Chorea: No (10/22/2016 23:53:Adriana Pinzon RN) Gen Hx Mental Retardation/Autism: Yes (10/22/2016 23:53:Sruthi Thurman RN) Gen Hx Tested for Fragile X: No (10/22/2016 23:53:Adriana Pinzon RN) Gen Hx Other Inher/Chromosomal: No (10/22/2016 23:53:Adriana Pinzon RN) Gen Hx Maternal Metabolic DO: No (10/22/2016 23:53:Adriana Pinzon RN) Gen Hx Pt Father or FOB Defect: No (10/22/2016 23:53:Adriana Pinzon RN) Gen Hx Other Genetic History: No (10/22/2016 23:53:Adriana Pinzon RN) Gen Hx Drugs/Meds since LMP: Yes (10/22/2016 23:53:Carol Hernandez RN) Gen Hx Medications: PNV (10/22/2016 23:53:Carol Hernandez RN)
--- NOTE | 2016-11-27 06:11 | L&D General Admission ---
General Admit Datetime Report Generated by CPN: 11/27/2016 06:00 INFORMATION Patient Age: 21 (10/12/2016 14:07:QS system process) EDC: 11/27/2016 00:00 (10/22/2016 23:53:Sruthi Thurman RN) : 1 (10/22/2016 23:53:Sruthi Thurman RN) Para: 0 (11/21/2016 00:47:Carol Hernandez RN) Term: 0 (10/22/2016 23:53:Ariane Khan RN) : 0 (10/22/2016 23:53:Ariane Khan RN) Spontaneous Abortions: 0 (10/22/2016 23:53:Ariane Khan RN) Induced Abortions: 0 (10/22/2016 23:53:Ariane Khan RN) Livin (10/22/2016 23:53:Ariane Khan RN) Cesareans: 0 (10/22/2016 23:53:Ariane Khan RN) VBACs: 0 (10/22/2016 23:53:Ariane Khan RN) Ectopic: 0 (10/22/2016 23:53:Ariane Khan RN) Multiple Births: 0 (10/22/2016 23:53:Ariane Khan RN) Baby, Number in Womb: 1 (11/21/2016 00:47:Carol Hernandez RN) CARE Primary Service Line Bus Cleaner: [facility] (10/22/2016 23:53:Sruthi Thurman RN) Adequate Care: Yes (10/22/2016 23:53:Elsei Santos RN) Height (in): 61 (11/24/2016 10:01:QS system process) ALLERGIES Medication Allergy: No (10/22/2016 23:53:Adriana Pinzon RN) Medication Allergies: No Known Allergies (11/21/2016) (11/21/2016 00:22:QS system process) Latex Allergy: No Latex Allergies (10/22/2016 23:53:Adriana Pinzon RN) Food Allergies: None (10/22/2016 23:53:Adriana Pinzon RN) Environmental Allergies: None (10/22/2016 23:53:Adriana Pinzon RN) COMMUNICATION Primary Language: Korean (10/22/2016 23:53:Adriana Pinzon RN) Medical Tx Preferred Language: Korean (10/22/2016 23:53:Adriana Pinzon RN) Communication Barrier(s): None (10/22/2016 23:53:Adriana Pinzon RN) DEMOGRAPHICS Address: [address] [place] [id number] (10/12/2016 14:07:QS system process) Zipcode: [address] (10/12/2016 14:07:QS system process) Home (10/12/2016 14:07:QS system process) SSN: [id number] (10/12/2016 14:07:QS system process) Next of Kin Name: RICO GRAF (10/12/2016 14:07:QS system process) Next of Kin (10/12/2016 14:07:QS system process) Next of Kin Relationship: SPO (10/12/2016 14:07:QS system process) Date of : 1995 (10/12/2016 14:07:QS system process) Marital Status: (10/12/2016 14:07:QS system process) Sex: Female (10/12/2016 14:07:QS system process) Race: (10/12/2016 14:07:QS system process) Ethnicity: Non- or (10/12/2016 14:07:QS system process) Nondenominational: Sikhism (10/12/2016 14:07:QS system process) DRUG AND ALCOHOL USE Alcohol: No (10/22/2016 23:53:Sruthi Thurman RN) Cigarettes: Never Smoker. [id number] (10/22/2016 23:53:Sruthi Thurman RN) Marijuana: No (10/22/2016 23:53:Sruthi Thurman RN) Cocaine: No (10/22/2016 23:53:Sruthi Thurman RN) Other Illicit Drugs: No (10/22/2016 23:53:Sruthi Thurman RN) Kickboxing Instructor: Other (Annotations: Data stored by N on behalf of user) (10/22/2016 23:53:Elsie Santos RN) Feeding Preference: Breast (10/22/2016 23:53:Sruthi Thurman RN) Benefit of Breast Feed Discussed: Yes (10/22/2016 23:53:Dahiana De La Paz RN) Circumcision: N/A (10/22/2016 23:53:Sruthi Thurman RN) Classes Attended: No (10/22/2016 23:53:Sruthi Thurman RN) Tubal Ligation: No (10/22/2016 23:53:Sruthi Thurman RN) Tubal Authorization Signed: N/A (10/22/2016 23:53:Sruthi Thurman RN) Consent: N/A (10/22/2016 23:53:Sruthi Thurman RN) Consent Signed: N/A (10/22/2016 23:53:Sruthi Thurman RN) Pain Management Plans: Epidural (10/22/2016 23:53:Sruthi Thurman RN) Plans for Labor and Delivery: None (10/22/2016 23:53:Sruthi Thurman RN) Support Person: Rico (10/22/2016 23:53:Sruthi Thurman RN) Support Person Relationship: (10/22/2016 23:53:Sruthi Thurman RN) Cultural/Spritual Practice: No (10/22/2016 23:53:Sruthi Thurman RN) Spir/Cult Dietary Needs: No (10/22/2016 23:53:Sruthi Thurman RN) LIVING SITUATION/DISCHARGE PLAN Living Arrangements: Apartment (10/22/2016 23:53:Sruthi Thurman RN) Adequate Access to:: Electric; Heat; Refrigeration; Plumbing/Running water; Phone; Transportation (10/22/2016 23:53:Sruthi Thurman RN) WIC Program: No (10/22/2016 23:53:Sruthi Thurman RN) Discharge Chief Financial Officer Person: Rico (10/22/2016 23:53:Sruthi Thurman RN) Person to Help after Discharge: Rico (10/22/2016 23:53:Rosita Galvez RN) Currently Using Commun Resources: No (10/22/2016 23:53:Sruthi Thurman RN) Outside Agency/Claims Adjuster: N/A (10/22/2016 23:53:Sruthi Thurman RN) Car Seat for Discharge: Yes (10/22/2016 23:53:Sruthi Thurman RN) Adoption Requested: No (10/22/2016 23:53:Sruthi Thurman RN) LABS Blood Type: A Negative (10/22/2016 23:53:Sruthi Thurman RN) Antibody Screen: Negative (10/22/2016 23:53:Sruthi Thurman RN) Rho(G) this : Yes (10/22/2016 23:53:Gely Vega RN) Date Rho(G) Given: 09/08/2016 (10/22/2016 23:53:Ariane Khan RN) Hemoglobin: 10.7 L (11/23/2016 07:12:QS system process) Hematocrit: 30.7 L (11/23/2016 07:12:QS system process) MCV: 88 (11/23/2016 07:12:QS system process) Group Beta Strep: negative (10/22/2016 23:53:Gely Vega RN) Gonorrhea: Negative (10/22/2016 23:53:Gely Vega RN) Chlamydia: Negative (10/22/2016 23:53:Gely Vega RN) RPR/VDRL: Nonreactive (10/22/2016 23:53:Gely Vega RN) HIV Results: Negative (10/22/2016 23:53:Ariane Khan RN) Hepatitis B: Negative (10/22/2016 23:53:Sruthi Thurman RN) Rubella: Immune (10/22/2016 23:53:Sruthi Thurman RN) OB/PREVIOUS HISTORY Current Procedures: Ultrasound; NST (10/22/2016 23:53:Adriana Pinzon RN) History of Previous : No (10/22/2016 23:53:Adriana Pinzon RN) History of Gestational Diabetes: No (10/22/2016 23:53:Adriana Pinzon RN) History of PIH: No (10/22/2016 23:53:Adriana Pinzon RN) History of Incompetent Cervix: No (10/22/2016 23:53:Adriana Pinzon RN) History of Placenta Previa/Abrup: No (10/22/2016 23:53:Adriana Pinzon RN) History of Macrosomia: No (10/22/2016 23:53:Adriana Pinzon RN) History of IUGR: No (10/22/2016 23:53:Adriana Pinzon RN) History of Hemorrhage: No (10/22/2016 23:53:Adriana Pinzon RN) History of Loss/Stillborn: No (10/22/2016 23:53:Adriana Pinzon RN) History of : No (10/22/2016 23:53:Adriana Pinzon RN) History of D (Rh) Sensitization: No (10/22/2016 23:53:Adriana Pinzon RN) History Recurrent Loss/Stillborn: No (10/22/2016 23:53:Adriana Pinzon RN) History Depression/PP Depression: No (10/22/2016 23:53:Sruthi Thurman RN) History of Uterine Anomaly/ELZA: No (10/22/2016 23:53:Adriana Pinzon RN) History of Infertility: No (10/22/2016 23:53:Adriana Pinzon RN) History of ART Treatment: No (10/22/2016 23:53:Sruthi Thurman RN) History of ELZA: No (10/22/2016 23:53:Adriana Pinzon RN) Comments Obstetrical History: G1: current (10/22/2016 23:53:Adriana Pinzon RN) MEDICAL HISTORY Med Hx Diabetes: No (10/22/2016 23:53:Sruthi Thurman RN) Med Hx Hypertension: No (10/22/2016 23:53:Sruthi Thurman RN) Med Hx Heart Disease: No (10/22/2016 23:53:Sruthi Thurman RN) Med Hx Autoimmune Disorder: No (10/22/2016 23:53:Sruthi Thurman RN) Med Hx Kidney Disease/UTI: No (10/22/2016 23:53:Sruthi Thurman RN) Med Hx Neurologic/Epilepsy: No (10/22/2016 23:53:Sruthi Thurman RN) Med Hx Psychiatric Disorders: No (10/22/2016 23:53:Sruthi Thurman RN) Med Hx Hepatitis/Liver Disease: No (10/22/2016 23:53:Sruthi Thurman RN) Med Hx Varicosities/Phlebitis: No (10/22/2016 23:53:Sruthi Thurman RN) Med Hx Thyroid Dysfunction: No (10/22/2016 23:53:Sruthi Thurman RN) Med Hx Trauma/Violence: No (10/22/2016 23:53:Sruthi Thurman RN) Med Hx Blood Transfusion: No (10/22/2016 23:53:Sruthi Thurman RN) Med Hx Pulmonary (Asthma,TB): No (10/22/2016 23:53:Sruthi Thurman RN) Med Hx Breast: No (10/22/2016 23:53:Sruthi Thurman RN) Med Hx RESIDENTIAL SALES REPRESENTATIVE Surgery: No (10/22/2016 23:53:Sruthi Thurman RN) Med Hx Hospitalization/Surgery: No (10/22/2016 23:53:Sruthi Thurman RN) Med Hx Anesthetic Complications: Unknown (10/22/2016 23:53:Sruthi Thurman RN) Med Hx Abnormal Pap Smear: No (10/22/2016 23:53:Sruthi Thurman RN) Other Medical Diseases: No (10/22/2016 23:53:Sruthi Thurman RN) Med Hx Significant Family Hx: No (10/22/2016 23:53:Sruthi Thurman RN) INFECTIOUS HISTORY Inf Hx Gonorrhea: No (10/22/2016 23:53:Sruthi Thurman RN) Inf Hx Chlamydia: No (10/22/2016 23:53:Sruthi Thurman RN) Inf Hx Syphilis: No (10/22/2016 23:53:Sruthi Thurman RN) Inf Hx HIV/AIDS: No (10/22/2016 23:53:Sruthi Thurman RN) Inf Hx Human Papilloma Virus: No (10/22/2016 23:53:Sruthi Thurman RN) Inf Hx Pt/Partner Genital Herpes: No (10/22/2016 23:53:Sruthi Thurman RN) Inf Hx Tuberculosis/Exposure: No (10/22/2016 23:53:Sruthi Thurman RN) Inf Hx Hepatitis B,C: No (10/22/2016 23:53:Sruthi Thurman RN) Inf Hx Rash or Viral Illness: No (10/22/2016 23:53:Sruthi Thurman RN) GENETIC HISTORY Gen Hx Age >=35 at [facility]: No (10/22/2016 23:53:Adriana Pinzon RN) Gen Hx Thalassemia: No (10/22/2016 23:53:Adriana Pinzon RN) Gen Hx Congenital Heart Defect: No (10/22/2016 23:53:Adriana Pinzon RN) Gen Hx Neural Tube Defect: No (10/22/2016 23:53:Adriana Pinzon RN) Gen Hx Down's Syndrome: No (10/22/2016 23:53:Adriana Pinzon RN) Gen Hx Chidi-Sachs: No (10/22/2016 23:53:Adriana Pinzon RN) Gen Hx Bernardino: No (10/22/2016 23:53:Adriana Pinzon RN) Gen Hx Familial Dysautonomia: No (10/22/2016 23:53:Adriana Pinzon RN) Gen Hx Sickle Cell Disease/Trait: No (10/22/2016 23:53:Adriana Pinzon RN) Gen Hx Hemophilia/Blood Disorder: No (10/22/2016 23:53:Adriana Pinzon RN) Gen Hx Muscular Dystrophy: No (10/22/2016 23:53:Adriana Pinzon RN) Gen Hx Cystic Fibrosis: No (10/22/2016 23:53:Adriana Pinzon RN) Gen Hx Huntingtons Chorea: No (10/22/2016 23:53:Adriana Pinzon RN) Gen Hx Mental Retardation/Autism: Yes (10/22/2016 23:53:Sruthi Thurman RN) Gen Hx Tested for Fragile X: No (10/22/2016 23:53:Adriana Pinzon RN) Gen Hx Other Inher/Chromosomal: No (10/22/2016 23:53:Adriana Pinzon RN) Gen Hx Maternal Metabolic DO: No (10/22/2016 23:53:Adriana Pinzon RN) Gen Hx Pt Father or FOB Defect: No (10/22/2016 23:53:Adriana Pinzon RN) Gen Hx Other Genetic History: No (10/22/2016 23:53:Adriana Pinzon RN) Gen Hx Drugs/Meds since LMP: Yes (10/22/2016 23:53:Carol Hernandez RN) Gen Hx Medications: PNV (10/22/2016 23:53:Carol Hernandez RN)
--- NOTE | 2016-11-28 06:11 | L&D General Admission ---
General Admit Datetime Report Generated by CPN: 11/28/2016 06:00 INFORMATION Patient Age: 21 (10/12/2016 14:07:QS system process) EDC: 11/27/2016 00:00 (10/22/2016 23:53:Sruthi Thurman RN) : 1 (10/22/2016 23:53:Sruthi Thurman RN) Para: 0 (11/21/2016 00:47:Carol Hernandez RN) Term: 0 (10/22/2016 23:53:Ariane Khan RN) : 0 (10/22/2016 23:53:Ariane Khan RN) Spontaneous Abortions: 0 (10/22/2016 23:53:Ariane Khan RN) Induced Abortions: 0 (10/22/2016 23:53:Ariane Khan RN) Livin (10/22/2016 23:53:Ariane Khan RN) Cesareans: 0 (10/22/2016 23:53:Ariane Khan RN) VBACs: 0 (10/22/2016 23:53:Ariane Khan RN) Ectopic: 0 (10/22/2016 23:53:Ariane Khan RN) Multiple Births: 0 (10/22/2016 23:53:Ariane Khan RN) Baby, Number in Womb: 1 (11/21/2016 00:47:Carol Hernandez RN) CARE Primary Piano Case Maker: [facility] (10/22/2016 23:53:Sruthi Thurman RN) Adequate Care: Yes (10/22/2016 23:53:Elsie Santos RN) Height (in): 61 (11/24/2016 10:01:QS system process) ALLERGIES Medication Allergy: No (10/22/2016 23:53:Adriana Pinzon RN) Medication Allergies: No Known Allergies (11/21/2016) (11/21/2016 00:22:QS system process) Latex Allergy: No Latex Allergies (10/22/2016 23:53:Adriana Pinzon RN) Food Allergies: None (10/22/2016 23:53:Adriana Pinzon RN) Environmental Allergies: None (10/22/2016 23:53:Adriana Pinzon RN) COMMUNICATION Primary Language: Telugu (10/22/2016 23:53:Adriana Pinzon RN) Medical Tx Preferred Language: Telugu (10/22/2016 23:53:Adriana Pinzon RN) Communication Barrier(s): None (10/22/2016 23:53:Adriana Pinzon RN) DEMOGRAPHICS Address: [address] [place] [phone] (10/12/2016 14:07:QS system process) Zipcode: [address] (10/12/2016 14:07:QS system process) Home (10/12/2016 14:07:QS system process) SSN: [id number] (10/12/2016 14:07:QS system process) Next of Kin Name: RICO GRAF (10/12/2016 14:07:QS system process) Next of Kin (10/12/2016 14:07:QS system process) Next of Kin Relationship: SPO (10/12/2016 14:07:QS system process) Date of : 1995 (10/12/2016 14:07:QS system process) Marital Status: (10/12/2016 14:07:QS system process) Sex: Female (10/12/2016 14:07:QS system process) Race: (10/12/2016 14:07:QS system process) Ethnicity: Non- or (10/12/2016 14:07:QS system process) Pentecostalism: Hindu (10/12/2016 14:07:QS system process) DRUG AND ALCOHOL USE Alcohol: No (10/22/2016 23:53:Sruthi Thurman RN) Cigarettes: Never Smoker. [id number] (10/22/2016 23:53:Sruthi Thurman RN) Marijuana: No (10/22/2016 23:53:Sruthi Thurman RN) Cocaine: No (10/22/2016 23:53:Sruthi Thurman RN) Other Illicit Drugs: No (10/22/2016 23:53:Sruthi Thurman RN) Wheel And Pinion Inspector: Other (Annotations: Data stored by N on behalf of user) (10/22/2016 23:53:Elsie Santos RN) Feeding Preference: Breast (10/22/2016 23:53:Sruthi Thurman RN) Benefit of Breast Feed Discussed: Yes (10/22/2016 23:53:Dahiana De La Paz RN) Circumcision: N/A (10/22/2016 23:53:Sruthi Thurman RN) Classes Attended: No (10/22/2016 23:53:Sruthi Thurman RN) Tubal Ligation: No (10/22/2016 23:53:Sruthi Thurman RN) Tubal Authorization Signed: N/A (10/22/2016 23:53:Sruthi Thurman RN) Consent: N/A (10/22/2016 23:53:Sruthi Thurman RN) Consent Signed: N/A (10/22/2016 23:53:Sruthi Thurman RN) Pain Management Plans: Epidural (10/22/2016 23:53:Sruthi Thurman RN) Plans for Labor and Delivery: None (10/22/2016 23:53:Sruthi Thurman RN) Support Person: Rico (10/22/2016 23:53:Sruthi Thurman RN) Support Person Relationship: (10/22/2016 23:53:Sruthi Thurman RN) Cultural/Spritual Practice: No (10/22/2016 23:53:Sruthi Thurman RN) Spir/Cult Dietary Needs: No (10/22/2016 23:53:Sruthi Thurman RN) LIVING SITUATION/DISCHARGE PLAN Living Arrangements: Apartment (10/22/2016 23:53:Sruthi Thurman RN) Adequate Access to:: Electric; Heat; Refrigeration; Plumbing/Running water; Phone; Transportation (10/22/2016 23:53:Sruthi Thurman RN) WIC Program: No (10/22/2016 23:53:Sruthi Thurman RN) Discharge Benzene Still Utility Operator Person: Rico (10/22/2016 23:53:Sruthi Thurman RN) Person to Help after Discharge: Rico (10/22/2016 23:53:Rosita Galvez RN) Currently Using Commun Resources: No (10/22/2016 23:53:Sruthi Thurman RN) Outside Agency/Graphic Art Designer: N/A (10/22/2016 23:53:Sruthi Thurman RN) Car Seat for Discharge: Yes (10/22/2016 23:53:Sruthi Thurman RN) Adoption Requested: No (10/22/2016 23:53:Sruthi Thurman RN) LABS Blood Type: A Negative (10/22/2016 23:53:Sruthi Thurman RN) Antibody Screen: Negative (10/22/2016 23:53:Sruthi Thurman RN) Rho(G) this : Yes (10/22/2016 23:53:Gely Vega RN) Date Rho(G) Given: 09/08/2016 (10/22/2016 23:53:Ariane Khan RN) Hemoglobin: 10.7 L (11/23/2016 07:12:QS system process) Hematocrit: 30.7 L (11/23/2016 07:12:QS system process) MCV: 88 (11/23/2016 07:12:QS system process) Group Beta Strep: negative (10/22/2016 23:53:Gely Vega RN) Gonorrhea: Negative (10/22/2016 23:53:Gely Vega RN) Chlamydia: Negative (10/22/2016 23:53:Gely Vega RN) RPR/VDRL: Nonreactive (10/22/2016 23:53:Gely Vega RN) HIV Results: Negative (10/22/2016 23:53:Ariane Khan RN) Hepatitis B: Negative (10/22/2016 23:53:Sruthi Thurman RN) Rubella: Immune (10/22/2016 23:53:Sruthi Thurman RN) OB/PREVIOUS HISTORY Current Procedures: Ultrasound; NST (10/22/2016 23:53:Adriana Pinzon RN) History of Previous : No (10/22/2016 23:53:Adriana Pinzon RN) History of Gestational Diabetes: No (10/22/2016 23:53:Adriana Pinzon RN) History of PIH: No (10/22/2016 23:53:Adriana Pinzon RN) History of Incompetent Cervix: No (10/22/2016 23:53:Adriana Pinzon RN) History of Placenta Previa/Abrup: No (10/22/2016 23:53:Adriana Pinzon RN) History of Macrosomia: No (10/22/2016 23:53:Adriana Pinzon RN) History of IUGR: No (10/22/2016 23:53:Adriana Pinzon RN) History of Hemorrhage: No (10/22/2016 23:53:Adriana Pinzon RN) History of Loss/Stillborn: No (10/22/2016 23:53:Adriana Pinzon RN) History of : No (10/22/2016 23:53:Adriana Pinzon RN) History of D (Rh) Sensitization: No (10/22/2016 23:53:Adriana Pinzon RN) History Recurrent Loss/Stillborn: No (10/22/2016 23:53:Adriana Pinzon RN) History Depression/PP Depression: No (10/22/2016 23:53:Sruthi Thurman RN) History of Uterine Anomaly/ELZA: No (10/22/2016 23:53:Adriana Pinzon RN) History of Infertility: No (10/22/2016 23:53:Adriana Pinzon RN) History of ART Treatment: No (10/22/2016 23:53:Sruthi Thurman RN) History of EZLA: No (10/22/2016 23:53:Adriana Pinzon RN) Comments Obstetrical History: G1: current (10/22/2016 23:53:Adriana Pinzon RN) MEDICAL HISTORY Med Hx Diabetes: No (10/22/2016 23:53:Sruthi Thurman RN) Med Hx Hypertension: No (10/22/2016 23:53:Sruthi Thurman RN) Med Hx Heart Disease: No (10/22/2016 23:53:Sruthi Thurman RN) Med Hx Autoimmune Disorder: No (10/22/2016 23:53:Sruthi Thurman RN) Med Hx Kidney Disease/UTI: No (10/22/2016 23:53:Sruthi Thurman RN) Med Hx Neurologic/Epilepsy: No (10/22/2016 23:53:Sruthi Thurman RN) Med Hx Psychiatric Disorders: No (10/22/2016 23:53:Sruthi Thurman RN) Med Hx Hepatitis/Liver Disease: No (10/22/2016 23:53:Sruthi Thurman RN) Med Hx Varicosities/Phlebitis: No (10/22/2016 23:53:Sruthi Thurman RN) Med Hx Thyroid Dysfunction: No (10/22/2016 23:53:Sruthi Thurman RN) Med Hx Trauma/Violence: No (10/22/2016 23:53:Sruthi Thurman RN) Med Hx Blood Transfusion: No (10/22/2016 23:53:Sruthi Thurman RN) Med Hx Pulmonary (Asthma,TB): No (10/22/2016 23:53:Sruthi Thurman RN) Med Hx Breast: No (10/22/2016 23:53:Sruthi Tuhrman RN) Med Hx MOBILE NURSE Surgery: No (10/22/2016 23:53:Sruthi Thurman RN) Med Hx Hospitalization/Surgery: No (10/22/2016 23:53:Sruthi Thurman RN) Med Hx Anesthetic Complications: Unknown (10/22/2016 23:53:Sruthi Thurman RN) Med Hx Abnormal Pap Smear: No (10/22/2016 23:53:Sruthi Thurman RN) Other Medical Diseases: No (10/22/2016 23:53:Sruthi Thurman RN) Med Hx Significant Family Hx: No (10/22/2016 23:53:Sruthi Thurman RN) INFECTIOUS HISTORY Inf Hx Gonorrhea: No (10/22/2016 23:53:Sruthi Thurman RN) Inf Hx Chlamydia: No (10/22/2016 23:53:Sruthi Thurman RN) Inf Hx Syphilis: No (10/22/2016 23:53:Sruthi Thurman RN) Inf Hx HIV/AIDS: No (10/22/2016 23:53:Sruthi Thurman RN) Inf Hx Human Papilloma Virus: No (10/22/2016 23:53:Sruthi Thurman RN) Inf Hx Pt/Partner Genital Herpes: No (10/22/2016 23:53:Sruthi Thurman RN) Inf Hx Tuberculosis/Exposure: No (10/22/2016 23:53:Sruthi Thurman RN) Inf Hx Hepatitis B,C: No (10/22/2016 23:53:Sruthi Thurman RN) Inf Hx Rash or Viral Illness: No (10/22/2016 23:53:Sruthi Thurman RN) GENETIC HISTORY Gen Hx Age >=35 at [facility]: No (10/22/2016 23:53:Adriana Pinzon RN) Gen Hx Thalassemia: No (10/22/2016 23:53:Adriana Pinzon RN) Gen Hx Congenital Heart Defect: No (10/22/2016 23:53:Adriana Pinzon RN) Gen Hx Neural Tube Defect: No (10/22/2016 23:53:Adriana Pinzon RN) Gen Hx Down's Syndrome: No (10/22/2016 23:53:Adriana Pinzon RN) Gen Hx Chidi-Sachs: No (10/22/2016 23:53:Adriana Pinzon RN) Gen Hx Bernardino: No (10/22/2016 23:53:Adriana Pinzon RN) Gen Hx Familial Dysautonomia: No (10/22/2016 23:53:Adriana Pinzon RN) Gen Hx Sickle Cell Disease/Trait: No (10/22/2016 23:53:Adriana Pinzon RN) Gen Hx Hemophilia/Blood Disorder: No (10/22/2016 23:53:Adriana Pinzon RN) Gen Hx Muscular Dystrophy: No (10/22/2016 23:53:Adriana Pinzon RN) Gen Hx Cystic Fibrosis: No (10/22/2016 23:53:Adriana Pinzon RN) Gen Hx Huntingtons Chorea: No (10/22/2016 23:53:Adriana Pinzon RN) Gen Hx Mental Retardation/Autism: Yes (10/22/2016 23:53:Sruthi Thurman RN) Gen Hx Tested for Fragile X: No (10/22/2016 23:53:Adriana Pinzon RN) Gen Hx Other Inher/Chromosomal: No (10/22/2016 23:53:Adriana Pinzon RN) Gen Hx Maternal Metabolic DO: No (10/22/2016 23:53:Adriana Pinzon RN) Gen Hx Pt Father or FOB Defect: No (10/22/2016 23:53:Adriana Pinzon RN) Gen Hx Other Genetic History: No (10/22/2016 23:53:Adriana Pinzon RN) Gen Hx Drugs/Meds since LMP: Yes (10/22/2016 23:53:Carol Hernandez RN) Gen Hx Medications: PNV (10/22/2016 23:53:Carol Hernandez RN)
--- NOTE | 2016-11-29 06:12 | L&D General Admission ---
General Admit Datetime Report Generated by CPN: 11/29/2016 06:00 INFORMATION Patient Age: 21 (10/12/2016 14:07:QS system process) EDC: 11/27/2016 00:00 (10/22/2016 23:53:Sruthi Thurman RN) : 1 (10/22/2016 23:53:Sruthi Thurman RN) Para: 0 (11/21/2016 00:47:Carol Hernandez RN) Term: 0 (10/22/2016 23:53:Ariane Khan RN) : 0 (10/22/2016 23:53:Ariane Khan RN) Spontaneous Abortions: 0 (10/22/2016 23:53:Ariane Khan RN) Induced Abortions: 0 (10/22/2016 23:53:Ariane Khan RN) Livin (10/22/2016 23:53:Ariane Khan RN) Cesareans: 0 (10/22/2016 23:53:Ariane Khan RN) VBACs: 0 (10/22/2016 23:53:Ariane Khan RN) Ectopic: 0 (10/22/2016 23:53:Ariane Khan RN) Multiple Births: 0 (10/22/2016 23:53:Ariane Khan RN) Baby, Number in Womb: 1 (11/21/2016 00:47:Carol Hernandez RN) CARE Primary Blocker Polishing: [facility] (10/22/2016 23:53:Sruthi Thurman RN) Adequate Care: Yes (10/22/2016 23:53:Elsie Santos RN) Height (in): 61 (11/24/2016 10:01:QS system process) ALLERGIES Medication Allergy: No (10/22/2016 23:53:Adriana Pinzon RN) Medication Allergies: No Known Allergies (11/21/2016) (11/21/2016 00:22:QS system process) Latex Allergy: No Latex Allergies (10/22/2016 23:53:Adriana Pinzon RN) Food Allergies: None (10/22/2016 23:53:Adriana Pinzon RN) Environmental Allergies: None (10/22/2016 23:53:Adriana Pinzon RN) COMMUNICATION Primary Language: Serbian (10/22/2016 23:53:Adriana Pinzon RN) Medical Tx Preferred Language: Serbian (10/22/2016 23:53:Adriana Pinzon RN) Communication Barrier(s): None (10/22/2016 23:53:Adriana Pinzon RN) DEMOGRAPHICS Address: [address] [place] [id number] (10/12/2016 14:07:QS system process) Zipcode: [address] (10/12/2016 14:07:QS system process) Home (10/12/2016 14:07:QS system process) SSN: [id number] (10/12/2016 14:07:QS system process) Next of Kin Name: RICO GRAF (10/12/2016 14:07:QS system process) Next of Kin (10/12/2016 14:07:QS system process) Next of Kin Relationship: SPO (10/12/2016 14:07:QS system process) Date of : 1995 (10/12/2016 14:07:QS system process) Marital Status: (10/12/2016 14:07:QS system process) Sex: Female (10/12/2016 14:07:QS system process) Race: (10/12/2016 14:07:QS system process) Ethnicity: Non- or (10/12/2016 14:07:QS system process) Confucianism: Baptist (10/12/2016 14:07:QS system process) DRUG AND ALCOHOL USE Alcohol: No (10/22/2016 23:53:Sruthi Thurman RN) Cigarettes: Never Smoker. [id number] (10/22/2016 23:53:Sruthi Thurman RN) Marijuana: No (10/22/2016 23:53:Sruthi Thurman RN) Cocaine: No (10/22/2016 23:53:Sruthi Thurman RN) Other Illicit Drugs: No (10/22/2016 23:53:Sruthi Thurman RN) Larriman: Other (Annotations: Data stored by N on behalf of user) (10/22/2016 23:53:Elsie Santos RN) Feeding Preference: Breast (10/22/2016 23:53:Sruthi Thurman RN) Benefit of Breast Feed Discussed: Yes (10/22/2016 23:53:Dahiana De La Paz RN) Circumcision: N/A (10/22/2016 23:53:Sruthi Thurman RN) Classes Attended: No (10/22/2016 23:53:Sruthi Thurman RN) Tubal Ligation: No (10/22/2016 23:53:Sruthi Thurman RN) Tubal Authorization Signed: N/A (10/22/2016 23:53:Sruthi Thurman RN) Consent: N/A (10/22/2016 23:53:Sruthi Thurman RN) Consent Signed: N/A (10/22/2016 23:53:Sruthi Thurman RN) Pain Management Plans: Epidural (10/22/2016 23:53:Sruthi Thurman RN) Plans for Labor and Delivery: None (10/22/2016 23:53:Sruthi Thurman RN) Support Person: Rico (10/22/2016 23:53:Sruthi Thurman RN) Support Person Relationship: (10/22/2016 23:53:Sruthi Thurman RN) Cultural/Spritual Practice: No (10/22/2016 23:53:Sruthi Thurman RN) Spir/Cult Dietary Needs: No (10/22/2016 23:53:Sruthi Thurman RN) LIVING SITUATION/DISCHARGE PLAN Living Arrangements: Apartment (10/22/2016 23:53:Sruthi Thurman RN) Adequate Access to:: Electric; Heat; Refrigeration; Plumbing/Running water; Phone; Transportation (10/22/2016 23:53:Sruthi Thurman RN) WIC Program: No (10/22/2016 23:53:Sruthi Thurman RN) Discharge Audit Clerks Supervisor Person: Rico (10/22/2016 23:53:Sruthi Thurman RN) Person to Help after Discharge: Rico (10/22/2016 23:53:Rosita Galvez RN) Currently Using Commun Resources: No (10/22/2016 23:53:Sruthi Thurman RN) Outside Agency/Fashion Director: N/A (10/22/2016 23:53:Sruthi Thurman RN) Car Seat for Discharge: Yes (10/22/2016 23:53:Sruthi Thurman RN) Adoption Requested: No (10/22/2016 23:53:Sruthi Thurman RN) LABS Blood Type: A Negative (10/22/2016 23:53:Sruthi Thurman RN) Antibody Screen: Negative (10/22/2016 23:53:Sruthi Thurman RN) Rho(G) this : Yes (10/22/2016 23:53:Gely Vega RN) Date Rho(G) Given: 09/08/2016 (10/22/2016 23:53:Ariane Khan RN) Hemoglobin: 10.7 L (11/23/2016 07:12:QS system process) Hematocrit: 30.7 L (11/23/2016 07:12:QS system process) MCV: 88 (11/23/2016 07:12:QS system process) Group Beta Strep: negative (10/22/2016 23:53:Gely Vega RN) Gonorrhea: Negative (10/22/2016 23:53:Gely Vega RN) Chlamydia: Negative (10/22/2016 23:53:Gely Vega RN) RPR/VDRL: Nonreactive (10/22/2016 23:53:Gely Vega RN) HIV Results: Negative (10/22/2016 23:53:Ariane Khan RN) Hepatitis B: Negative (10/22/2016 23:53:Sruthi Thurman RN) Rubella: Immune (10/22/2016 23:53:Sruthi Thurman RN) OB/PREVIOUS HISTORY Current Procedures: Ultrasound; NST (10/22/2016 23:53:Adriana Pinzon RN) History of Previous : No (10/22/2016 23:53:Adriana Pinzon RN) History of Gestational Diabetes: No (10/22/2016 23:53:Adriana Pinzon RN) History of PIH: No (10/22/2016 23:53:Adriana Pinzon RN) History of Incompetent Cervix: No (10/22/2016 23:53:Adriana Pinzon RN) History of Placenta Previa/Abrup: No (10/22/2016 23:53:Adriana Pinzon RN) History of Macrosomia: No (10/22/2016 23:53:Adriana Pinzon RN) History of IUGR: No (10/22/2016 23:53:Adriana Pinzon RN) History of Hemorrhage: No (10/22/2016 23:53:Adriana Pinzon RN) History of Loss/Stillborn: No (10/22/2016 23:53:Adriana Pinzon RN) History of : No (10/22/2016 23:53:Adriana Pinzon RN) History of D (Rh) Sensitization: No (10/22/2016 23:53:Adriana Pinzon RN) History Recurrent Loss/Stillborn: No (10/22/2016 23:53:Adriana Pinzon RN) History Depression/PP Depression: No (10/22/2016 23:53:Sruthi Thurman RN) History of Uterine Anomaly/ELZA: No (10/22/2016 23:53:Adriana Pinzon RN) History of Infertility: No (10/22/2016 23:53:Adriana Pinzon RN) History of ART Treatment: No (10/22/2016 23:53:Sruthi Thurman RN) History of ELZA: No (10/22/2016 23:53:Adriana Pinzon RN) Comments Obstetrical History: G1: current (10/22/2016 23:53:Adriana Pinzon RN) MEDICAL HISTORY Med Hx Diabetes: No (10/22/2016 23:53:Sruthi Thurman RN) Med Hx Hypertension: No (10/22/2016 23:53:Sruthi Thurman RN) Med Hx Heart Disease: No (10/22/2016 23:53:Sruthi Thurman RN) Med Hx Autoimmune Disorder: No (10/22/2016 23:53:Sruthi Thurman RN) Med Hx Kidney Disease/UTI: No (10/22/2016 23:53:Sruthi Thurman RN) Med Hx Neurologic/Epilepsy: No (10/22/2016 23:53:Sruthi Thurman RN) Med Hx Psychiatric Disorders: No (10/22/2016 23:53:Sruthi Thurman RN) Med Hx Hepatitis/Liver Disease: No (10/22/2016 23:53:Sruthi Thurman RN) Med Hx Varicosities/Phlebitis: No (10/22/2016 23:53:Srutih Thurman RN) Med Hx Thyroid Dysfunction: No (10/22/2016 23:53:Sruthi Thurman RN) Med Hx Trauma/Violence: No (10/22/2016 23:53:Sruthi Thurman RN) Med Hx Blood Transfusion: No (10/22/2016 23:53:Sruthi Thurman RN) Med Hx Pulmonary (Asthma,TB): No (10/22/2016 23:53:Sruthi Thurman RN) Med Hx Breast: No (10/22/2016 23:53:Sruthi Thurman RN) Med Hx LIQUOR TESTER Surgery: No (10/22/2016 23:53:Sruthi Thurman RN) Med Hx Hospitalization/Surgery: No (10/22/2016 23:53:Sruthi Thurman RN) Med Hx Anesthetic Complications: Unknown (10/22/2016 23:53:Sruthi Thurman RN) Med Hx Abnormal Pap Smear: No (10/22/2016 23:53:Sruthi Thurman RN) Other Medical Diseases: No (10/22/2016 23:53:Sruthi Thurman RN) Med Hx Significant Family Hx: No (10/22/2016 23:53:Sruthi Thurman RN) INFECTIOUS HISTORY Inf Hx Gonorrhea: No (10/22/2016 23:53:Sruthi Thurman RN) Inf Hx Chlamydia: No (10/22/2016 23:53:Sruthi Thurman RN) Inf Hx Syphilis: No (10/22/2016 23:53:Sruthi Thurman RN) Inf Hx HIV/AIDS: No (10/22/2016 23:53:Sruthi Thurman RN) Inf Hx Human Papilloma Virus: No (10/22/2016 23:53:Sruthi Thurman RN) Inf Hx Pt/Partner Genital Herpes: No (10/22/2016 23:53:Sruthi Thurman RN) Inf Hx Tuberculosis/Exposure: No (10/22/2016 23:53:Sruthi Thurman RN) Inf Hx Hepatitis B,C: No (10/22/2016 23:53:Sruthi Thurman RN) Inf Hx Rash or Viral Illness: No (10/22/2016 23:53:Sruthi Thurman RN) GENETIC HISTORY Gen Hx Age >=35 at SHABANA: No (10/22/2016 23:53:Adriana Pinzon RN) Gen Hx Thalassemia: No (10/22/2016 23:53:Adriana Pinzon RN) Gen Hx Congenital Heart Defect: No (10/22/2016 23:53:Adriana Pinzon RN) Gen Hx Neural Tube Defect: No (10/22/2016 23:53:Adriana Pinzon RN) Gen Hx Down's Syndrome: No (10/22/2016 23:53:Adriana Pinzon RN) Gen Hx Chidi-Sachs: No (10/22/2016 23:53:Adriana Pinzon RN) Gen Hx Bernardino: No (10/22/2016 23:53:Adriana Pinzon RN) Gen Hx Familial Dysautonomia: No (10/22/2016 23:53:Adriana Pinzon RN) Gen Hx Sickle Cell Disease/Trait: No (10/22/2016 23:53:Adriana Pinzon RN) Gen Hx Hemophilia/Blood Disorder: No (10/22/2016 23:53:Adriana Pinzon RN) Gen Hx Muscular Dystrophy: No (10/22/2016 23:53:Adriana Pinzon RN) Gen Hx Cystic Fibrosis: No (10/22/2016 23:53:Adriana Pinzon RN) Gen Hx Huntingtons Chorea: No (10/22/2016 23:53:Adriana Pinzon RN) Gen Hx Mental Retardation/Autism: Yes (10/22/2016 23:53:Sruthi Thurman RN) Gen Hx Tested for Fragile X: No (10/22/2016 23:53:Adriana Pinzon RN) Gen Hx Other Inher/Chromosomal: No (10/22/2016 23:53:Adriana Pinzon RN) Gen Hx Maternal Metabolic DO: No (10/22/2016 23:53:Adriana Pinzon RN) Gen Hx Pt Father or FOB Defect: No (10/22/2016 23:53:Adriana Pinzon RN) Gen Hx Other Genetic History: No (10/22/2016 23:53:Adriana Pinzon RN) Gen Hx Drugs/Meds since LMP: Yes (10/22/2016 23:53:Carol Hernandez RN) Gen Hx Medications: PNV (10/22/2016 23:53:Carol Hernandez RN)
--- NOTE | 2016-11-29 06:12 | L&D Current Admission ---
Current Admit Datetime Report Generated by CPN: 11/29/2016 06:00 ADMISSION INFORMATION Current Admit Date/Time: 11/22/2016 05:11 (11/22/2016 05:07:Robyn Zavala) Reason for Admission: Onset of Labor (11/22/2016 05:07:Robyn Zavala) Chief Complaint: Contractions (11/22/2016 05:07:Robyn Zavala) EGA per Dates: 39.2 (11/22/2016 05:07:QS system process) Method of Arrival: Wheelchair (11/22/2016 05:07:Robyn Zavala) Admitted From: Home (11/22/2016 05:07:Robyn Zavala) Records Available: Yes (11/22/2016 05:07:Robyn Zavala) General Admission Information: Reviewed (11/22/2016 05:07:Robyn Zavala) General Admission Reviewed By: Alma Zavala Rn (11/22/2016 05:07:Robyn Zavala) BELONGINGS/ADVANCED DIRECTIVES Other Belongings: see consent sheet (11/22/2016 05:07:Robyn Zavala) Disposition of Belongings: Kept with Patient (11/22/2016 05:07:Robyn Zavala) Advance Direct for Healthcare: No, and Wants No Information (11/22/2016 05:07:Robyn Zavala) Durable Power of Patient Financial Services Coordinator: No (11/22/2016 05:07:Robyn Zavala) Living Will: No (11/22/2016 05:07:Robyn Zavala) Organ Donor: No (11/22/2016 05:07:Robyn Zavaal) Pt Rights Information Given: Yes (11/22/2016 05:07:Robyn Zavala) Pt Understands Pt Rights: Yes (11/22/2016 05:07:Robyn Zavala) Patient Rights Comments: patient access (11/22/2016 05:07:Robyn Zavala) LEARNING ASSESSMENT Knowledge Level: Understands L_D Process (11/22/2016 05:07:Robyn Zavala) Barriers to Learning: None (11/22/2016 05:07:Robyn Zavala) Learning Readiness: Motivated (11/22/2016 05:07:Robyn Zavala) Learns Best By: 1 to 1 Instruction (11/22/2016 05:07:Robyn Zavala) Learning Needs: Labor and Delivery Process (11/22/2016 05:07:Robyn Zavala) DOMESTIC VIOLANCE SCREENING Dom Viol Threatened/Hurt: No (11/22/2016 05:07:Robyn Zavala) Hx of Abuse/Neglect past 2yrs: No (11/22/2016 05:07:Robyn Zavala) Feel Unsafe Going Home: No (11/22/2016 05:07:Robyn Zavala) Addt'l Observ Indicating Abuse: No (11/22/2016 05:07:Robyn Zavala) Reason Unable to Complete Screen: N/A, Screen Completed (11/22/2016 05:07:Robyn Zavala) Considered Personal Harm/Suicide: No (11/22/2016 05:07:Robyn Zavala) NUTRITIONAL/FUNCTIONAL SCREENING Problem with Appetite >5 Days: No (11/22/2016 05:07:Robyn Zavala) Chew/Swallow Difficulties: No (11/22/2016 05:07:Robyn Zavala) Inappropriate Wt Gain/Loss: No (11/22/2016 05:07:Robyn Zavala) Presence Skin Breakdown/Ulcer: No (11/22/2016 05:07:Robyn Zavala) Special Diet: No (11/22/2016 05:07:Robyn Zavala) Pt Requests Weight And Test Bar Clerk Visit: No (11/22/2016 05:07:Robyn Zavala) Hx of Any of the Following?: N/A (11/22/2016 05:07:Robyn Zavala) New Diagnosis of: N/A (11/22/2016 05:07:Robyn Zavala) Requires Assist w/Ambulation: No (11/22/2016 05:07:Robyn Zavala) Uses Assist Device to Ambulate: No (11/22/2016 05:07:Robyn Zavala) Pt Requires Help w/ADL's: No (11/22/2016 05:07:Robyn Zavala)
--- NOTE | 2016-11-30 06:11 | L&D General Admission ---
General Admit Datetime Report Generated by CPN: 11/30/2016 06:00 INFORMATION Patient Age: 21 (10/12/2016 14:07:QS system process) EDC: 11/27/2016 00:00 (10/22/2016 23:53:Sruthi Thurman RN) : 1 (10/22/2016 23:53:Sruthi Thurman RN) Para: 0 (11/21/2016 00:47:Carol Hernandez RN) Term: 0 (10/22/2016 23:53:Ariane Khan RN) : 0 (10/22/2016 23:53:Ariane Khan RN) Spontaneous Abortions: 0 (10/22/2016 23:53:Ariane Khan RN) Induced Abortions: 0 (10/22/2016 23:53:Ariane Khan RN) Livin (10/22/2016 23:53:Ariane Khan RN) Cesareans: 0 (10/22/2016 23:53:Ariane Khan RN) VBACs: 0 (10/22/2016 23:53:Ariane Khan RN) Ectopic: 0 (10/22/2016 23:53:Ariane Khan RN) Multiple Births: 0 (10/22/2016 23:53:Ariane Khan RN) Baby, Number in Womb: 1 (11/21/2016 00:47:Carol Hernandez RN) CARE Primary Photoengraving Supervisor: [facility] (10/22/2016 23:53:Sruthi Thurman RN) Adequate Care: Yes (10/22/2016 23:53:Elsie Santos RN) Height (in): 61 (11/24/2016 10:01:QS system process) ALLERGIES Medication Allergy: No (10/22/2016 23:53:Adriana Pinzon RN) Medication Allergies: No Known Allergies (11/21/2016) (11/21/2016 00:22:QS system process) Latex Allergy: No Latex Allergies (10/22/2016 23:53:Adriana Pinzon RN) Food Allergies: None (10/22/2016 23:53:Adriana Pinzon RN) Environmental Allergies: None (10/22/2016 23:53:Adriana Pinzon RN) COMMUNICATION Primary Language: Polish (10/22/2016 23:53:Adriana Pinzon RN) Medical Tx Preferred Language: Polish (10/22/2016 23:53:Adriana Pinzon RN) Communication Barrier(s): None (10/22/2016 23:53:Adriana Pinzon RN) DEMOGRAPHICS Address: [address] [place] [id number] (10/12/2016 14:07:QS system process) Zipcode: [address] (10/12/2016 14:07:QS system process) Home (10/12/2016 14:07:QS system process) SSN: [id number] (10/12/2016 14:07:QS system process) Next of Kin Name: RICO GRAF (10/12/2016 14:07:QS system process) Next of Kin (10/12/2016 14:07:QS system process) Next of Kin Relationship: SPO (10/12/2016 14:07:QS system process) Date of : 1995 (10/12/2016 14:07:QS system process) Marital Status: (10/12/2016 14:07:QS system process) Sex: Female (10/12/2016 14:07:QS system process) Race: (10/12/2016 14:07:QS system process) Ethnicity: Non- or (10/12/2016 14:07:QS system process) Rastafari: Restoration (10/12/2016 14:07:QS system process) DRUG AND ALCOHOL USE Alcohol: No (10/22/2016 23:53:Sruthi Thurman RN) Cigarettes: Never Smoker. [id number] (10/22/2016 23:53:Sruthi Thurman RN) Marijuana: No (10/22/2016 23:53:Sruthi Thurman RN) Cocaine: No (10/22/2016 23:53:Sruthi Thurman RN) Other Illicit Drugs: No (10/22/2016 23:53:Sruthi Thurman RN) Business Control Specialist: Other (Annotations: Data stored by N on behalf of user) (10/22/2016 23:53:Elsie Santos RN) Feeding Preference: Breast (10/22/2016 23:53:Sruthi Thurman RN) Benefit of Breast Feed Discussed: Yes (10/22/2016 23:53:Dahiana De La Paz RN) Circumcision: N/A (10/22/2016 23:53:Sruthi Thurman RN) Classes Attended: No (10/22/2016 23:53:Sruthi Thuramn RN) Tubal Ligation: No (10/22/2016 23:53:Sruthi Thurman RN) Tubal Authorization Signed: N/A (10/22/2016 23:53:Sruthi Thurman RN) Consent: N/A (10/22/2016 23:53:Sruthi Thurman RN) Consent Signed: N/A (10/22/2016 23:53:Sruthi Thurman RN) Pain Management Plans: Epidural (10/22/2016 23:53:Sruthi Thurman RN) Plans for Labor and Delivery: None (10/22/2016 23:53:Sruthi Thurman RN) Support Person: Rico (10/22/2016 23:53:Sruthi Thurman RN) Support Person Relationship: (10/22/2016 23:53:Sruthi Thurman RN) Cultural/Spritual Practice: No (10/22/2016 23:53:Sruthi Thurman RN) Spir/Cult Dietary Needs: No (10/22/2016 23:53:Sruthi Thurman RN) LIVING SITUATION/DISCHARGE PLAN Living Arrangements: Apartment (10/22/2016 23:53:Sruthi Thurman RN) Adequate Access to:: Electric; Heat; Refrigeration; Plumbing/Running water; Phone; Transportation (10/22/2016 23:53:Sruthi Thurman RN) WIC Program: No (10/22/2016 23:53:Sruthi Thurman RN) Discharge Human Intelligence Person: Rico (10/22/2016 23:53:Sruthi Thurman RN) Person to Help after Discharge: Rico (10/22/2016 23:53:Rosita Galvez RN) Currently Using Commun Resources: No (10/22/2016 23:53:Sruthi Thurman RN) Outside Agency/Bull Rider: N/A (10/22/2016 23:53:Sruthi Thurman RN) Car Seat for Discharge: Yes (10/22/2016 23:53:Sruthi Thurman RN) Adoption Requested: No (10/22/2016 23:53:Sruthi Thurman RN) LABS Blood Type: A Negative (10/22/2016 23:53:Sruthi Thurman RN) Antibody Screen: Negative (10/22/2016 23:53:Sruthi Thurman RN) Rho(G) this : Yes (10/22/2016 23:53:Gely Vega RN) Date Rho(G) Given: 09/08/2016 (10/22/2016 23:53:Ariane Khan RN) Hemoglobin: 10.7 L (11/23/2016 07:12:QS system process) Hematocrit: 30.7 L (11/23/2016 07:12:QS system process) MCV: 88 (11/23/2016 07:12:QS system process) Group Beta Strep: negative (10/22/2016 23:53:Gely Vega RN) Gonorrhea: Negative (10/22/2016 23:53:Gely Vega RN) Chlamydia: Negative (10/22/2016 23:53:Gely Vega RN) RPR/VDRL: Nonreactive (10/22/2016 23:53:Gely Vega RN) HIV Results: Negative (10/22/2016 23:53:Ariane Khan RN) Hepatitis B: Negative (10/22/2016 23:53:Sruthi Thurman RN) Rubella: Immune (10/22/2016 23:53:Sruthi Thurman RN) OB/PREVIOUS HISTORY Current Procedures: Ultrasound; NST (10/22/2016 23:53:Adriana Pinzon RN) History of Previous : No (10/22/2016 23:53:Adriana Pinzon RN) History of Gestational Diabetes: No (10/22/2016 23:53:Adriana Pinzon RN) History of PIH: No (10/22/2016 23:53:Adriana Pinzon RN) History of Incompetent Cervix: No (10/22/2016 23:53:Adriana Pinzon RN) History of Placenta Previa/Abrup: No (10/22/2016 23:53:Adriana Pinzon RN) History of Macrosomia: No (10/22/2016 23:53:Adriana Pinzon RN) History of IUGR: No (10/22/2016 23:53:Adriana Pinzon RN) History of Hemorrhage: No (10/22/2016 23:53:Adriana Pinzon RN) History of Loss/Stillborn: No (10/22/2016 23:53:Adriana Pinzon RN) History of : No (10/22/2016 23:53:Adriana Pinzon RN) History of D (Rh) Sensitization: No (10/22/2016 23:53:Adriana Pinzon RN) History Recurrent Loss/Stillborn: No (10/22/2016 23:53:Adriana Pinzon RN) History Depression/PP Depression: No (10/22/2016 23:53:Sruthi Thurman RN) History of Uterine Anomaly/ELZA: No (10/22/2016 23:53:Adriana Pinzon RN) History of Infertility: No (10/22/2016 23:53:Adriana Pinzon RN) History of ART Treatment: No (10/22/2016 23:53:Sruthi Thurman RN) History of ELZA: No (10/22/2016 23:53:Adriana Pinzon RN) Comments Obstetrical History: G1: current (10/22/2016 23:53:Adriana Pinzon RN) MEDICAL HISTORY Med Hx Diabetes: No (10/22/2016 23:53:Sruthi Thurman RN) Med Hx Hypertension: No (10/22/2016 23:53:Sruthi Thurman RN) Med Hx Heart Disease: No (10/22/2016 23:53:Sruthi Thurman RN) Med Hx Autoimmune Disorder: No (10/22/2016 23:53:Sruthi Thurman RN) Med Hx Kidney Disease/UTI: No (10/22/2016 23:53:Sruthi Thurman RN) Med Hx Neurologic/Epilepsy: No (10/22/2016 23:53:Sruthi Thurman RN) Med Hx Psychiatric Disorders: No (10/22/2016 23:53:Sruthi Thurman RN) Med Hx Hepatitis/Liver Disease: No (10/22/2016 23:53:Sruthi Thurman RN) Med Hx Varicosities/Phlebitis: No (10/22/2016 23:53:Sruthi Thurman RN) Med Hx Thyroid Dysfunction: No (10/22/2016 23:53:Sruthi Thurman RN) Med Hx Trauma/Violence: No (10/22/2016 23:53:Sruthi Thurman RN) Med Hx Blood Transfusion: No (10/22/2016 23:53:Sruthi Thurman RN) Med Hx Pulmonary (Asthma,TB): No (10/22/2016 23:53:Sruthi Thurman RN) Med Hx Breast: No (10/22/2016 23:53:Sruthi Thurman RN) Med Hx MATERIAL MOVERS Surgery: No (10/22/2016 23:53:Sruthi Thurman RN) Med Hx Hospitalization/Surgery: No (10/22/2016 23:53:Sruthi Thurman RN) Med Hx Anesthetic Complications: Unknown (10/22/2016 23:53:Sruthi Thurman RN) Med Hx Abnormal Pap Smear: No (10/22/2016 23:53:Sruthi Thurman RN) Other Medical Diseases: No (10/22/2016 23:53:Sruthi Thurman RN) Med Hx Significant Family Hx: No (10/22/2016 23:53:Sruthi Thurman RN) INFECTIOUS HISTORY Inf Hx Gonorrhea: No (10/22/2016 23:53:Sruthi Thurman RN) Inf Hx Chlamydia: No (10/22/2016 23:53:Sruthi Thurman RN) Inf Hx Syphilis: No (10/22/2016 23:53:Sruthi Thurman RN) Inf Hx HIV/AIDS: No (10/22/2016 23:53:Sruthi Thurman RN) Inf Hx Human Papilloma Virus: No (10/22/2016 23:53:Sruthi Thurman RN) Inf Hx Pt/Partner Genital Herpes: No (10/22/2016 23:53:Sruthi Thurman RN) Inf Hx Tuberculosis/Exposure: No (10/22/2016 23:53:Sruthi Thurman RN) Inf Hx Hepatitis B,C: No (10/22/2016 23:53:Sruthi Thurman RN) Inf Hx Rash or Viral Illness: No (10/22/2016 23:53:Sruthi Thurman RN) GENETIC HISTORY Gen Hx Age >=35 at SHABANA: No (10/22/2016 23:53:Adriana Pinzon RN) Gen Hx Thalassemia: No (10/22/2016 23:53:Adriana Pinzon RN) Gen Hx Congenital Heart Defect: No (10/22/2016 23:53:Adriana Pinzon RN) Gen Hx Neural Tube Defect: No (10/22/2016 23:53:Adriana Pinzon RN) Gen Hx Down's Syndrome: No (10/22/2016 23:53:Adriana Pinzon RN) Gen Hx Chidi-Sachs: No (10/22/2016 23:53:Adriana Pinzon RN) Gen Hx Bernardino: No (10/22/2016 23:53:Adriana Pinzon RN) Gen Hx Familial Dysautonomia: No (10/22/2016 23:53:Adriana Pinzon RN) Gen Hx Sickle Cell Disease/Trait: No (10/22/2016 23:53:Adriana Pinzon RN) Gen Hx Hemophilia/Blood Disorder: No (10/22/2016 23:53:Adriana Pinzon RN) Gen Hx Muscular Dystrophy: No (10/22/2016 23:53:Adriana Pinzon RN) Gen Hx Cystic Fibrosis: No (10/22/2016 23:53:Adriana Pinzon RN) Gen Hx Huntingtons Chorea: No (10/22/2016 23:53:Adriana Pinzon RN) Gen Hx Mental Retardation/Autism: Yes (10/22/2016 23:53:Sruthi Thurman RN) Gen Hx Tested for Fragile X: No (10/22/2016 23:53:Adriana Pinzon RN) Gen Hx Other Inher/Chromosomal: No (10/22/2016 23:53:Adriana Pinzon RN) Gen Hx Maternal Metabolic DO: No (10/22/2016 23:53:Adriana Pinzon RN) Gen Hx Pt Father or FOB Defect: No (10/22/2016 23:53:Adraina Pinzon RN) Gen Hx Other Genetic History: No (10/22/2016 23:53:Adriana Pinzon RN) Gen Hx Drugs/Meds since LMP: Yes (10/22/2016 23:53:Carol Hernandez RN) Gen Hx Medications: PNV (10/22/2016 23:53:Carol Hernandez RN)
--- NOTE | 2016-12-01 06:11 | L&D General Admission ---
General Admit Datetime Report Generated by CPN: 12/01/2016 06:00 INFORMATION Patient Age: 21 (10/12/2016 14:07:QS system process) EDC: 11/27/2016 00:00 (10/22/2016 23:53:Sruthi Thurman RN) : 1 (10/22/2016 23:53:Sruthi Thurman RN) Para: 0 (11/21/2016 00:47:Carol Hernandez RN) Term: 0 (10/22/2016 23:53:Ariane Khan RN) : 0 (10/22/2016 23:53:Ariane Khan RN) Spontaneous Abortions: 0 (10/22/2016 23:53:Ariane Khan RN) Induced Abortions: 0 (10/22/2016 23:53:Ariane Khan RN) Livin (10/22/2016 23:53:Ariane Khan RN) Cesareans: 0 (10/22/2016 23:53:Ariane Khan RN) VBACs: 0 (10/22/2016 23:53:Ariane Khan RN) Ectopic: 0 (10/22/2016 23:53:Ariane Khan RN) Multiple Births: 0 (10/22/2016 23:53:Ariane Khan RN) Baby, Number in Womb: 1 (11/21/2016 00:47:Carol Hernandez RN) CARE Primary Bus Steward: [facility] (10/22/2016 23:53:Sruthi Thurman RN) Adequate Care: Yes (10/22/2016 23:53:Elsie Santos RN) Height (in): 61 (11/24/2016 10:01:QS system process) ALLERGIES Medication Allergy: No (10/22/2016 23:53:Adriana Pinzon RN) Medication Allergies: No Known Allergies (11/21/2016) (11/21/2016 00:22:QS system process) Latex Allergy: No Latex Allergies (10/22/2016 23:53:Adriana Pinzon RN) Food Allergies: None (10/22/2016 23:53:Adriana Pinzon RN) Environmental Allergies: None (10/22/2016 23:53:Adriana Pinzon RN) COMMUNICATION Primary Language: Ukrainian (10/22/2016 23:53:Adriana Pinzon RN) Medical Tx Preferred Language: Ukrainian (10/22/2016 23:53:Adriana Pinzon RN) Communication Barrier(s): None (10/22/2016 23:53:Adriana Pinzon RN) DEMOGRAPHICS Address: [address] [place] [id number] (10/12/2016 14:07:QS system process) Zipcode: [address] (10/12/2016 14:07:QS system process) Home (10/12/2016 14:07:QS system process) SSN: [id number] (10/12/2016 14:07:QS system process) Next of Kin Name: RICO GRAF (10/12/2016 14:07:QS system process) Next of Kin (10/12/2016 14:07:QS system process) Next of Kin Relationship: SPO (10/12/2016 14:07:QS system process) Date of : 1995 (10/12/2016 14:07:QS system process) Marital Status: (10/12/2016 14:07:QS system process) Sex: Female (10/12/2016 14:07:QS system process) Race: (10/12/2016 14:07:QS system process) Ethnicity: Non- or (10/12/2016 14:07:QS system process) Nondenominational: Latter-Day (10/12/2016 14:07:QS system process) DRUG AND ALCOHOL USE Alcohol: No (10/22/2016 23:53:Sruthi Thurman RN) Cigarettes: Never Smoker. [id number] (10/22/2016 23:53:Sruthi Thurman RN) Marijuana: No (10/22/2016 23:53:Sruthi Thurman RN) Cocaine: No (10/22/2016 23:53:Sruthi Thurman RN) Other Illicit Drugs: No (10/22/2016 23:53:Sruthi Thurman RN) Line Therapist: Other (Annotations: Data stored by N on behalf of user) (10/22/2016 23:53:Elsie Santos RN) Feeding Preference: Breast (10/22/2016 23:53:Sruthi Thurman RN) Benefit of Breast Feed Discussed: Yes (10/22/2016 23:53:Dahiana De La Paz RN) Circumcision: N/A (10/22/2016 23:53:Sruthi Thurman RN) Classes Attended: No (10/22/2016 23:53:Sruthi Thurman RN) Tubal Ligation: No (10/22/2016 23:53:Sruthi Thurman RN) Tubal Authorization Signed: N/A (10/22/2016 23:53:Sruthi Thurman RN) Consent: N/A (10/22/2016 23:53:Sruthi Thurman RN) Consent Signed: N/A (10/22/2016 23:53:Sruthi Thurman RN) Pain Management Plans: Epidural (10/22/2016 23:53:Sruthi Thurman RN) Plans for Labor and Delivery: None (10/22/2016 23:53:Sruthi Thurman RN) Support Person: Rico (10/22/2016 23:53:Sruthi Thurman RN) Support Person Relationship: (10/22/2016 23:53:Sruthi Thurman RN) Cultural/Spritual Practice: No (10/22/2016 23:53:Sruthi Thurman RN) Spir/Cult Dietary Needs: No (10/22/2016 23:53:Sruthi Thurman RN) LIVING SITUATION/DISCHARGE PLAN Living Arrangements: Apartment (10/22/2016 23:53:Sruthi Thurman RN) Adequate Access to:: Electric; Heat; Refrigeration; Plumbing/Running water; Phone; Transportation (10/22/2016 23:53:Sruthi Thurman RN) WIC Program: No (10/22/2016 23:53:Sruthi Thurman RN) Discharge Social Professionals Person: Rico (10/22/2016 23:53:Sruthi Thurman RN) Person to Help after Discharge: Rico (10/22/2016 23:53:Rosita Galvez RN) Currently Using Commun Resources: No (10/22/2016 23:53:Sruthi Thurman RN) Outside Agency/Provider Relations Consultant: N/A (10/22/2016 23:53:Sruthi Thurman RN) Car Seat for Discharge: Yes (10/22/2016 23:53:Sruthi Thurman RN) Adoption Requested: No (10/22/2016 23:53:Sruthi Thurman RN) LABS Blood Type: A Negative (10/22/2016 23:53:Sruthi Thurman RN) Antibody Screen: Negative (10/22/2016 23:53:Sruthi Thurman RN) Rho(G) this : Yes (10/22/2016 23:53:Gely Vega RN) Date Rho(G) Given: 09/08/2016 (10/22/2016 23:53:Ariane Khan RN) Hemoglobin: 10.7 L (11/23/2016 07:12:QS system process) Hematocrit: 30.7 L (11/23/2016 07:12:QS system process) MCV: 88 (11/23/2016 07:12:QS system process) Group Beta Strep: negative (10/22/2016 23:53:Gely Vega RN) Gonorrhea: Negative (10/22/2016 23:53:Gely Vega RN) Chlamydia: Negative (10/22/2016 23:53:Gely Vega RN) RPR/VDRL: Nonreactive (10/22/2016 23:53:Gely Vega RN) HIV Results: Negative (10/22/2016 23:53:Ariane Khan RN) Hepatitis B: Negative (10/22/2016 23:53:Sruthi Thurman RN) Rubella: Immune (10/22/2016 23:53:Sruthi Thurman RN) OB/PREVIOUS HISTORY Current Procedures: Ultrasound; NST (10/22/2016 23:53:Adriana Pinzon RN) History of Previous : No (10/22/2016 23:53:Adriana Pinzon RN) History of Gestational Diabetes: No (10/22/2016 23:53:Adriana Pinzon RN) History of PIH: No (10/22/2016 23:53:Adriana Pinzon RN) History of Incompetent Cervix: No (10/22/2016 23:53:Adriana Pinzon RN) History of Placenta Previa/Abrup: No (10/22/2016 23:53:Adriana Pinzon RN) History of Macrosomia: No (10/22/2016 23:53:Adriana Pinzon RN) History of IUGR: No (10/22/2016 23:53:Adriana Pinzon RN) History of Hemorrhage: No (10/22/2016 23:53:Adriana Pinzon RN) History of Loss/Stillborn: No (10/22/2016 23:53:Adriana Pinzon RN) History of : No (10/22/2016 23:53:Adriana Pinzon RN) History of D (Rh) Sensitization: No (10/22/2016 23:53:Adriana Pinzon RN) History Recurrent Loss/Stillborn: No (10/22/2016 23:53:Adriana Pinzon RN) History Depression/PP Depression: No (10/22/2016 23:53:Sruthi Thurman RN) History of Uterine Anomaly/ELZA: No (10/22/2016 23:53:Adriana Pinzon RN) History of Infertility: No (10/22/2016 23:53:Adriana Pinzon RN) History of ART Treatment: No (10/22/2016 23:53:Sruthi Thurman RN) History of ELZA: No (10/22/2016 23:53:Adriana Pinzon RN) Comments Obstetrical History: G1: current (10/22/2016 23:53:Adriana Pinzon RN) MEDICAL HISTORY Med Hx Diabetes: No (10/22/2016 23:53:Sruthi Thurman RN) Med Hx Hypertension: No (10/22/2016 23:53:Sruthi Thurman RN) Med Hx Heart Disease: No (10/22/2016 23:53:Sruthi Thurman RN) Med Hx Autoimmune Disorder: No (10/22/2016 23:53:Sruthi Thurman RN) Med Hx Kidney Disease/UTI: No (10/22/2016 23:53:Sruthi Thurman RN) Med Hx Neurologic/Epilepsy: No (10/22/2016 23:53:Sruthi Thurman RN) Med Hx Psychiatric Disorders: No (10/22/2016 23:53:Sruthi Thurman RN) Med Hx Hepatitis/Liver Disease: No (10/22/2016 23:53:Sruthi Thurman RN) Med Hx Varicosities/Phlebitis: No (10/22/2016 23:53:Sruthi Thurman RN) Med Hx Thyroid Dysfunction: No (10/22/2016 23:53:Sruthi Thurman RN) Med Hx Trauma/Violence: No (10/22/2016 23:53:Sruthi Thurman RN) Med Hx Blood Transfusion: No (10/22/2016 23:53:Sruthi Thurman RN) Med Hx Pulmonary (Asthma,TB): No (10/22/2016 23:53:Sruthi Thurman RN) Med Hx Breast: No (10/22/2016 23:53:Sruthi Thurman RN) Med Hx GALLERY INTERN Surgery: No (10/22/2016 23:53:Sruthi Thurman RN) Med Hx Hospitalization/Surgery: No (10/22/2016 23:53:Sruthi Thurman RN) Med Hx Anesthetic Complications: Unknown (10/22/2016 23:53:Sruthi Thurman RN) Med Hx Abnormal Pap Smear: No (10/22/2016 23:53:Sruthi Thurman RN) Other Medical Diseases: No (10/22/2016 23:53:Sruthi Thurman RN) Med Hx Significant Family Hx: No (10/22/2016 23:53:Sruthi Thurman RN) INFECTIOUS HISTORY Inf Hx Gonorrhea: No (10/22/2016 23:53:Sruthi Thurman RN) Inf Hx Chlamydia: No (10/22/2016 23:53:Sruthi Thurman RN) Inf Hx Syphilis: No (10/22/2016 23:53:Sruthi Thurman RN) Inf Hx HIV/AIDS: No (10/22/2016 23:53:Sruthi Thurman RN) Inf Hx Human Papilloma Virus: No (10/22/2016 23:53:Sruthi Thurman RN) Inf Hx Pt/Partner Genital Herpes: No (10/22/2016 23:53:Sruthi Thurman RN) Inf Hx Tuberculosis/Exposure: No (10/22/2016 23:53:Sruthi Thurman RN) Inf Hx Hepatitis B,C: No (10/22/2016 23:53:Sruthi Thurman RN) Inf Hx Rash or Viral Illness: No (10/22/2016 23:53:Sruthi Thurman RN) GENETIC HISTORY Gen Hx Age >=35 at SHABANA: No (10/22/2016 23:53:Adriana Pinzon RN) Gen Hx Thalassemia: No (10/22/2016 23:53:Adriana Pinzon RN) Gen Hx Congenital Heart Defect: No (10/22/2016 23:53:Adriana Pinzon RN) Gen Hx Neural Tube Defect: No (10/22/2016 23:53:Adriana Pinzon RN) Gen Hx Down's Syndrome: No (10/22/2016 23:53:Adriana Pinzon RN) Gen Hx Chidi-Sachs: No (10/22/2016 23:53:Adriana Pinzon RN) Gen Hx Bernardino: No (10/22/2016 23:53:Adriana Pinzon RN) Gen Hx Familial Dysautonomia: No (10/22/2016 23:53:Adriana Pinzon RN) Gen Hx Sickle Cell Disease/Trait: No (10/22/2016 23:53:Adriana Pinzon RN) Gen Hx Hemophilia/Blood Disorder: No (10/22/2016 23:53:Adriana Pinzon RN) Gen Hx Muscular Dystrophy: No (10/22/2016 23:53:Adriana Pinzon RN) Gen Hx Cystic Fibrosis: No (10/22/2016 23:53:Adriana Pinzon RN) Gen Hx Huntingtons Chorea: No (10/22/2016 23:53:Adriana Pinzon RN) Gen Hx Mental Retardation/Autism: Yes (10/22/2016 23:53:Sruthi Thurman RN) Gen Hx Tested for Fragile X: No (10/22/2016 23:53:Adriana Pinzon RN) Gen Hx Other Inher/Chromosomal: No (10/22/2016 23:53:Adriana Pinzon RN) Gen Hx Maternal Metabolic DO: No (10/22/2016 23:53:Adriana Pinzon RN) Gen Hx Pt Father or FOB Defect: No (10/22/2016 23:53:Adriana Pinzon RN) Gen Hx Other Genetic History: No (10/22/2016 23:53:Adriana Pinzon RN) Gen Hx Drugs/Meds since LMP: Yes (10/22/2016 23:53:Carol Hernandez RN) Gen Hx Medications: PNV (10/22/2016 23:53:Carol Hernandez RN)
== END 2016-11-24 11:13 | disposition home or self-care (01) | DRG 775 ==
LOC: LC 04:53 → LR 05:13 → 2S 13:32
PROVIDERS: ADMIT Obstetrics & Gynecology; ATTEND Obstetrics & Gynecology
PROC: 10E0XZZ Delivery of Products of Conception, External Approach (ICD-10-PCS; principal; 2016-11-22)
PROC: 4A1HXCZ Monitoring of Products of Conception, Cardiac Rate, External Approach (ICD-10-PCS; 2016-11-22)
DX: O99.02 Anemia complicating childbirth (principal); D62 Acute posthemorrhagic anemia; Z37.0 Single live birth; Z3A.39 39 weeks gestation of pregnancy
CPT/HCPCS: 36415; 80307; 81005; 85025; 85027; 85461; 86592; 86850; 86870; 86900; 86901; 88307; 94760; J2370; J2405; J2590; J2790; J3010; J3490

== ENCOUNTER 2017-11-24 02:36 | Inpatient (IN) | payer OTHER ==
[2017-11-24 03:20] LABS: APPEARANCE,URINE SLIGHTLY-CLOUDY; BILIRUBIN,URINE NEGATIVE (NEGATIVE); COLOR,URINE YELLOW; GLUCOSE, URINE NEGATIVE (NEGATIVE); KETONES,URINE NEGATIVE (NEGATIVE); LEUKOCYTE ESTERASE,URINE MODERATE (NEGATIVE); NITRITE,URINE NEGATIVE (NEGATIVE); PROTEIN,URINE 100 mg/dL (NEGATIVE); URINE SPECIFIC GRAVITY 1.032; UROBILINOGEN,URINE NEGATIVE mg/dL (<2.0)
[2017-11-24 03:46] LABS: URINE AMPHETAMINES SCREEN NEGATIVE; URINE BARBITURATES SCREEN NEGATIVE; URINE BENZODIAZEPINES SCREEN NEGATIVE; URINE COCAINE SCREEN NEGATIVE; URINE MARIJUANA (THC) SCREEN NEGATIVE; URINE METHADONE SCREEN NEGATIVE; URINE PHENCYCLIDINE SCREEN NEGATIVE
[2017-11-24] MEDS ORDERED: EPHEDRINE SULFATE INJ 50 MG/1 ML AMPULE ONE (04:09)
[2017-11-24] MEDS ORDERED: FENTANYL/BUPIVACAINE/NS/PF 200 MCG/100 ML RTUINJ EPI ONE (04:10)
[2017-11-24] MEDS ORDERED: BUPIVACAINE HCL 0.25 % INJ/PF (2.5 MG/1 ML) 30 ML VIAL ONE (04:10)
[2017-11-24] MEDS ORDERED: OXYTOCIN/NORMAL SALINE 20 UNIT/1,000 ML RTUINJ ONE (04:18)
[2017-11-24] MEDS ORDERED: LIDOCAINE 1% INJ-PF (10 MG/ML) 30 ML SDV ONE (04:18)
[2017-11-24] MEDS ORDERED: MISOPROSTOL 0.2 MG TABLET ONE (04:18)
[2017-11-24] MEDS ORDERED: RINGERS SOLUTION,LACTATED 1,000 ML IV PRN ×2 (04:22→04:23)
[2017-11-24] MEDS ORDERED: FENTANYL/BUPIVACAINE/NS/PF 200 MCG/100 ML RTUINJ EPI PRN (04:22)
[2017-11-24] MEDS ORDERED: BENZOIN/ALOE VERA/STORAX/TOLU TINCTURE 60 ML TP PRN (04:22)
[2017-11-24] MEDS ORDERED: EPHEDRINE SULFATE INJ 50 MG/1 ML AMPULE IV ONE (04:22)
[2017-11-24] MEDS ORDERED: BUPIVACAINE HCL 0.25 % INJ/PF (2.5 MG/1 ML) 30 ML VIAL INFIL ONE (04:22)
[2017-11-24] MEDS ORDERED: EPHEDRINE SULFATE INJ 50 MG/1 ML AMPULE IV PRN (04:22)
[2017-11-24 05:18] LABS: ABSOLUTE LYMPHOCYTES (AUTO) 1.4 10^3/uL (0.5-4.7); ABSOLUTE MONOCYTES (AUTO) 0.6 10^3/uL (0.1-1.4); ABSOLUTE NEUT (AUTO) 8.1 10^3/uL (1.7-8.2); BASOPHILS % (AUTO) 0.3 % (0-2); EOSINOPHILS % (AUTO) 0.2 % (0-6); HEMATOCRIT 37.5 % (36.0-47.0); HEMOGLOBIN 12.9 g/dL (12.0-15.5); LYMPHOCYTES % (AUTO) 13.8 % (13-45); MEAN CORPUSCULAR HEMOGLOBIN 30.1 pg (27.0-33.4); MEAN CORPUSCULAR HGB CONC 34.4 g/dL (32.0-36.0); MEAN CORPUSCULAR VOLUME 88 fl (80-97); PLATELET COUNT 183 10^3/uL (150-450); RED BLOOD COUNT 4.28 10^6/uL (3.72-5.28); RED CELL DISTRIBUTION WIDTH 14.3 % (11.5-14.0); SEGMENTED NEUTROPHILS % (AUTO) 79.7 % (42-78); TOTAL CELLS COUNTED % (AUTO) 100 %; WHITE BLOOD COUNT 10.1 10^3/uL (4.0-10.5)
[2017-11-24] MEDS ORDERED: BENZOCAINE/MENTHOL AEROSOL SPRAY 56 ML TOP PRN (05:59)
[2017-11-24] MEDS ORDERED: DIPH/PERTUSS(ACELL)/TETANUS VAC/PF 0.5 ML SYR (>=10YO) IM PRN (05:59)
[2017-11-24] MEDS ORDERED: OXYTOCIN/NORMAL SALINE 20 UNIT/1,000 ML RTUINJ IV PRN (05:59)
[2017-11-24] MEDS ORDERED: ACETAMINOPHEN WITH CODEINE #3 TABLET PO PRN ×2 (05:59)
[2017-11-24] MEDS ORDERED: DIBUCAINE 1% OINTMENT 28 GM TP PRN (05:59)
[2017-11-24] MEDS ORDERED: ZOLPIDEM TARTRATE 5 MG TABLET PO PRN (05:59)
[2017-11-24] MEDS ORDERED: MEASLES,MUMPS&RUBELLA VACC/PF 0.5 ML VIAL SUBCUT PRN (05:59)
--- NOTE | 2017-11-24 06:39 | Warning Signs in Babies ---
VOD Warning Signs Datetime Report Generated by [facility]: 11/24/2017 06:39 VOD#608 -Warning Signs in Babies: Viewed with Parent(s)/Family (11/24/2017 02:43:Indu Palafox RN)
--- NOTE | 2017-11-24 08:34 | Admission Physical ---
Datetime Report Generated by CPN: 11/24/2017 08:33 CURRENT ADMISSION Chief Complaint: Uterine Contractions Indication for Induction: Not Applicable Indication for Induction: Active Labor Admit Plan: Admit to Unit; Initiate Labor Protocol ALLERGIES Medication Allergies: No Medication Allergies: No Known Allergies (11/21/2016) Latex: No Latex Allergies OBSTETRICAL HISTORY EDC: 12/01/2017 00:00 : 2 Para: 1 Term: 1 : 0 SAB: 0 IAB: 0 Ectopic: 0 Livin Cesareans: 0 VBACs: 0 Multiple Births: 0 Gestational Diabetes: No Rh Sensitization: No Incompetent Cervix: No ELZA: No Infertility: No ART Treatment: No Uterine Anomaly: No IUGR: No Hx Previous C/S: No Macrosomia: No Hx Loss/Stillborn: No PIH: No Hx : No Placenta Previa/Abruption: No Depression/PP Depression: No PTL/PROM: No Post Hemorrhage: No Current Procedures: Ultrasound; NST Obstetrical History Comments: G1: 11/22/2016 6 lb 10 oz female G2: Current, borderline GDM SEE RECORDS Alcohol: No Marijuana : No Cocaine: No Other Illicit Drugs: No Cigarettes: Never Smoker. 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: No Heart Disease: No Hosp/Surgery: No Autoimmune Disorder: No Anesthetic Complications: No Kidney Disease: No Abnormal Pap Smear: No Neuro/Epilepsy: No Psychiatric Disorders: No Other Medical Diseases: No Hepatitis/Liver Disease: No Significant Family History: No Varicosities/Phlebitis: No Trauma/Violence : No Thyroid Dysfunction: No INFECTIOUS HISTORY Gonorrhea: No Genital Herpes: No Chlamydia: No Tuberculosis: No Syphilis: No Hepatitis: No HIV/AIDS Exposure: No Rash or Viral Illness: No HPV: No PHYSICAL EXAM General: Normal HEENT: Normal Neurologic: Normal Thyroid: Normal Heart: Normal Lungs: Normal Breast: Normal Back: Normal Abdomen: Normal Genitourinary Exam: Normal Extremities: Normal DTRs: Normal Pelvic Type: Adequate Vital Signs: Reviewed; Within Normal Limits VAGINAL EXAM Dilatation: 5 Effacement: 80 Station: -1 MEMBRANES Pooling: Negative Membranes: Intact FETUS A EGA: 39.0 Monitoring: External US FHR- Baseline: 130 Variability: Moderate 6-25bpm Accelerations: 15X15 Decelerations: None FHR Category: Category I Estimated Weight (gm): 3500 Presentation: Vertex PLANS FOR LABOR AND DELIVERY Labor and Delivery: None Pain Management: Medications; Epidural Feeding Preference: Breast Benefit of Breast Feed Discussed: Yes Circumcision: N/A INFORMED CONSENT Signature: with User ID: [email or web address]
[2017-11-24] MEDS: IBUPROFEN 800 MG TABLET PO SCH ×3 (09:21→22:56)
[2017-11-24] MEDS ORDERED: INFLUENZA ADLT QUAD (36MOS+) 2017-18 VAC 0.5 ML SYR IM PRN (10:24)
[2017-11-24] MEDS: SENNOSIDES/DOCUSATE 8.6-50 MG 1 EACH TABLET PO SCH (10:58)
[2017-11-24] MEDS: DOCUSATE SODIUM 100 MG CAPSULE PO SCH ×2 (10:59→17:30)
[2017-11-24] MEDS: FERROUS SULFATE 325 MG TABLET PO SCH ×2 (10:59→17:29)
[2017-11-24] MEDS: PRENATAL VITAMIN W DHA CAPSULE PO SCH (10:59)
[2017-11-25] MEDS: IBUPROFEN 800 MG TABLET PO SCH ×3 (05:09→22:11)
[2017-11-25 08:01] LABS: HEMATOCRIT 34.8 % (36.0-47.0); HEMOGLOBIN 11.8 g/dL (12.0-15.5); MEAN CORPUSCULAR HEMOGLOBIN 30.1 pg (27.0-33.4); MEAN CORPUSCULAR HGB CONC 33.9 g/dL (32.0-36.0); MEAN CORPUSCULAR VOLUME 89 fl (80-97); PLATELET COUNT 162 10^3/uL (150-450); RED BLOOD COUNT 3.92 10^6/uL (3.72-5.28); RED CELL DISTRIBUTION WIDTH 14.5 % (11.5-14.0); WHITE BLOOD COUNT 8.5 10^3/uL (4.0-10.5)
[2017-11-25] MEDS: PRENATAL VITAMIN W DHA CAPSULE PO SCH (09:57)
[2017-11-25] MEDS: DOCUSATE SODIUM 100 MG CAPSULE PO SCH ×2 (09:57→18:09)
[2017-11-25] MEDS: SENNOSIDES/DOCUSATE 8.6-50 MG 1 EACH TABLET PO SCH (09:57)
[2017-11-25] MEDS: FERROUS SULFATE 325 MG TABLET PO SCH ×2 (09:57→18:09)
--- NOTE | 2017-11-25 12:56 | PDOC PROGRESS REPORT ---
Subjective-OB Subjective: Post Delivery Day: 22 year old. Denies any needs at this time. Pt doing well, no concerns. Reports light bleeding, regular diet and voiding well. Physical Exam (OB) Vital Signs: Temp Pulse Resp BP Pulse Ox 98.2 F 70 14 123/78 97 11/25/17 07:47 11/25/17 07:47 11/25/17 07:47 11/25/17 07:47 11/25/17 07:47 Intake & Output 11/24/17 11/25/17 11/26/17 06:59 06:59 06:59 Weight 88.2 kg - Lochia Lochia Amount: Scant < 10 ml Lochia Color: Rubra/Red - Abdomen Description: Tender, Soft Hernia Present: No Fundal Description: Firm, Midline Fundal Height: u/u - u/2 Objective-Diagnostic Laboratory: 11/25/17 07:37 11/25/17 07:37 WBC 8.5 RBC 3.92 Hgb 11.8 L Hct 34.8 L MCV 89 MCH 30.1 MCHC 33.9 RDW 14.5 H Plt Count 162 Assessment and Plan(PN) - Assessment and Plan (1) Acute blood loss anemia Is this a current diagnosis for this admission?: Yes (2) Delivery normal Is this a current diagnosis for this admission?: Yes - Time Spent with Patient Time with patient: Less than 15 minutes Medications reviewed and adjusted accordingly: Yes - Disposition Anticipated Discharge: Home Within: within 48 hours
[2017-11-26] MEDS: IBUPROFEN 800 MG TABLET PO SCH ×2 (06:00→14:01)
[2017-11-26 09:20] VITALS: BP 122/68
--- NOTE | 2017-11-26 10:41 | PDOC DISCHARGE SUMMARY ---
General - Admit/Disc Date/PCP Admission Date/Primary Care Provider: 11/24/17 04:07 RAMBO RUBIN MD Discharge Date: 11/26/17 - Discharge Diagnosis (1) Acute blood loss anemia Is this a current diagnosis for this admission?: Yes (2) Delivery normal Is this a current diagnosis for this admission?: Yes (3) Is this a current diagnosis for this admission?: Yes - Additional Information Home Medications: Prenat 115/Iron Fum/Folic/Dss [ 19 Tablet] 1 tab PO DAILY 10/22/16 History of Present Illness History of Present Illness: RANDOLPH GRAF is a 22 year old female Hospital Course Hospital Course: routine course. Physical Exam - Physical Exam Vital Signs: Temp Pulse Resp BP Pulse Ox 97.9 F 71 16 122/68 98 11/26/17 08:21 11/26/17 08:21 11/26/17 08:21 11/26/17 08:21 11/26/17 08:21 Intake & Output 11/25/17 11/26/17 11/27/17 06:59 06:59 06:59 Intake Total 240 Balance 240 General appearance: PRESENT: no acute distress, cooperative GI/Abdominal exam: PRESENT: soft - nontender. fundus below umbilicus Result Laboratory Results: 11/25/17 07:37 11/26/17 07:27 Blood Type A NEGATIVE Plan Discharge Plan: discharge home with F/U at [facility] in 4 weeks. Time Spent: Less than 30 Minutes
[2017-11-26] MEDS: PRENATAL VITAMIN W DHA CAPSULE PO SCH (10:59)
[2017-11-26] MEDS: SENNOSIDES/DOCUSATE 8.6-50 MG 1 EACH TABLET PO SCH (10:59)
[2017-11-26] MEDS: FERROUS SULFATE 325 MG TABLET PO SCH (10:59)
[2017-11-26] MEDS: DOCUSATE SODIUM 100 MG CAPSULE PO SCH (10:59)
--- NOTE | 2017-12-02 15:47 | Delivery Summary ---
Del Sum A-C Datetime Report Generated by CPN: 12/02/2017 15:47 DELIVERY PERSONNEL DELIVERY PERSONNEL: [id number] Delivery Doctor:: Tawana Eagle MD Labor and Delivery Nurse:: Indu Palafox RN Labor and Delivery Nurse:: Ariane Khan RN Automotive Artist:: Rosita Galvez RN Planning Advisor/BUSINESS ANALYTICS FACULTY MEMBER: Krzysztof Ya, BUSINESS ANALYTICS FACULTY MEMBER MATERNAL INFORMATION Delivery Anesthesia: Epidural Medications After Delivery: Pitocin Bolus-Please Comment Estimated Blood Loss (ml): 200 Maternal Complications: Precipitous Labor (<3hrs) LABOR SUMMARY EDC: 12/01/2017 00:00 No. Babies in Womb: 1 Attempted: No Labor Anesthesia: Epidural LABOR INFORMATION Reason for Induction: Not Applicable Onset of Labor: 11/24/2017 03:00 Complete Dilatation: 11/24/2017 05:00 Oxytocin: N/A Group B Beta Strep: negative Steroids Given: None Reason Steroids Not Administered: Not Applicable MEMBRANES Membranes Rupture Method: Spontaneous Membranes Rupture Method: Spontaneous Rupture of Membranes: 11/24/2017 05:37 Rupture of Membranes: 11/24/2017 05:37 Length of Rupture (hr): 0.07 Length of Rupture (hr): 0.07 Amniotic Fluid Color: Clear Amniotic Fluid Color: Clear Amniotic Fluid Amount: Moderate Amniotic Fluid Amount: Moderate Amniotic Fluid Odor: Normal Amniotic Fluid Odor: Normal STAGES OF LABOR Stage 1 hr: 2 Stage 1 min: 0 Stage 2 hr: 0 Stage 2 min: 41 Stage 3 hr: 0 Stage 3 min: 4 Total Time in Labor hr: 2 Total Time in Labor min: 45 VAGINAL DELIVERY Episiotomy: None Laceration #1: Perineal Laceration Extension #1: First Degree Laceration Repair: Yes Laceration Repair Note: 2-0 chromic repair in normal fashion Sponge Count Correct: Yes CSECTION DELIVERY Primary Indication: N/A Secondary Indication: N/A CSection Incidence: N/A Labor: N/A Elective: N/A CSection Incision: N/A BABY A INFORMATION Infant Delivery Date/Time: 11/24/2017 05:41 Method of Delivery: Vaginal Born in Route : No : N/A Forceps: N/A Vacuum Extraction: N/A Shoulder Dystocia : No PRESENTATION/POSITION BABY A Presentation: Cephalic Cephalic Presentation: Vertex Vertex Position: Right Occipital Anterior Breech Presentation: N/A PLACENTA INFORMATION BABY A Placenta Delivery Time : 11/24/2017 05:45 Placenta Method of Delivery: Spontaneous Placenta Status: Delivered SCORES BABY A Heart Rate 1 min: >100 bpm Resp Effort 1 min: Good Cry Reflex Irritability 1 min: Cough or Sneeze or Pulls Away Muscle Tone 1 min: Active Motion Color 1 min: Blue/Pale Resuscitation Effort 1 min: Tactile Stimulation SCORE 1 MIN: 8 Heart Rate 5 min: >100 bpm Resp Effort 5 min: Good Cry Reflex Irritability 5 min: Cough or Sneeze or Pulls Away Muscle Tone 5 min: Active Motion Color 5 min: Body [place], Extremities Blue SCORE 5 MIN: 9 INFANT INFORMATION BABY A Gestational Age at Delivery: 39.0 Gestational Status: Full Term- 39- 40.6 Weeks Infant Outcome : Liveborn Condition : Stable Infant Sex: Male IDENTIFICATION BABY A Verification Date/Time: 11/24/2017 05:49 ID Band Number: [id number] Mother's Name Verified: Yes Infant RN Verifying : Bryan Thao RN/ S. Dominickir RN WEIGHT/LENGTH BABY A Birthweight (gm): 3030 Weight (lb): 6 Weight (oz): 11 Length (in): 20.00 Infant Length (cm): 50.80 CORD INFORMATION BABY A No. Cord Vessels: 3 Nuchal Cord : N/A Cord Blood Taken: Yes-For Eval (Mom's Blood Type - or O+) Suction: None ASSESSMENT BABY A Infant Complications: None Physical Findings at Delivery: Within Normal Limits Infant Respirations: Appears Normal; Grunting Skin to Skin: Yes Skin to Skin: Yes Skin to Skin: Yes Skin to Skin: Yes Skin to Skin Time (min): 60 Skin to Skin Time (min): 60 Brick Pitcher/ALS Called : No Care By: Sergio Galvez RN Transferred To: Remains with Mother BABY B INFORMATION : N/A SIGNATURES Signature: with User ID: [email or web address]
== END 2017-11-26 14:28 | disposition home or self-care (01) | DRG 775 ==
LOC: LC 02:36 → LR 04:07 → 2S 08:25
PROVIDERS: ADMIT Obstetrics & Gynecology; ATTEND Obstetrics & Gynecology
PROC: 10E0XZZ Delivery of Products of Conception, External Approach (ICD-10-PCS; principal; 2017-11-24)
PROC: 0HQ9XZZ Repair Perineum Skin, External Approach (ICD-10-PCS; 2017-11-24)
PROC: 4A1HXCZ Monitoring of Products of Conception, Cardiac Rate, External Approach (ICD-10-PCS; 2017-11-24)
PROC: 3E0234Z Introduction of Serum, Toxoid and Vaccine into Muscle, Percutaneous Approach (ICD-10-PCS; 2017-11-26)
DX: O62.3 Precipitate labor (principal); D62 Acute posthemorrhagic anemia; O70.0 First degree perineal laceration during delivery; O24.429 Gestational diabetes mellitus in childbirth, unspecified control; O99.02 Anemia complicating childbirth; O26.893 Other specified pregnancy related conditions, third trimester; Z67.11 Type A blood, Rh negative; Z3A.39 39 weeks gestation of pregnancy; Z37.0 Single live birth
CPT/HCPCS: 36415; 80307; 81005; 85025; 85027; 85461; 86592; 86850; 86870; 86900; 86901; J2590; J2790; J3490